=== PATIENT | female | born 1970 | race Caucasian/White ===

== ENCOUNTER 2018-03-05 06:59 | Emergency (ER) | payer BC ==
--- OUTSIDE RECORDS SUMMARY | 2018-03-05 07:00 | XMS REPORT | Clinical Summary ---
:1970 Author Organization [facility] Address [address] [place] [address] Care Team Providers Name Role Phone Asked, No Pcp Primary Care Provider Unavailable Allergies Active Allergy Reactions Severity Noted Date Comments Azithromycin 09/11/2016 Cephalexin Rash Low 09/22/2015 Furosemide Rash Low 09/22/2015 Tramadol Other (See Comments) High 09/11/2016 Medications Medication Sig Dispensed Refills Start Date End Date Status aspirin (ASPIR-81) 81 Take 81 mg by 0 Active MG enteric coated mouth daily. tablet atorvastatin (LIPITOR) Take 80 mg by 0 Active 80 MG tablet mouth daily. gabapentin (NEURONTIN) Take 300 mg by 0 Active 300 mg capsule mouth 3 (three) times a day. losartan (COZAAR) 100 Take 100 mg by 0 Active MG tablet mouth daily. montelukast (SINGULAIR) Take 10 mg by 0 Active 10 mg tablet mouth nightly. esomeprazole (NexIUM) Take 20 mg by 0 Active 20 MG capsule mouth daily before breakfast. primidone (MYSOLINE) 50 Take 50 mg by 0 Active MG tablet mouth 4 (four) times a day. propranolol (INDERAL) Take 60 mg by 0 Active 60 MG tablet mouth 3 (three) times a day. sertraline (ZOLOFT) 100 Take 100 mg by 0 Active MG tablet mouth daily. zolpidem (AMBIEN) 10 mg Take 10 mg by 0 Active tablet mouth nightly as needed for sleep. cetirizine (ZyrTEC) 10 Take 10 mg by 0 Active MG tablet mouth daily. Active Problems Problem Noted Date Bilateral thumb pain 09/11/2016 Right carpal tunnel syndrome 09/11/2016 Left carpal tunnel syndrome 09/11/2016 Trigger finger of right thumb 09/11/2016 Trigger finger of left thumb 09/11/2016 Family History Medical History Relation Name Comments No Known Problems Other Relation Name Status Comments Other Social History Tobacco Use Types Packs/Day Years Used Date Smoker, Current Status Unknown Sex Assigned at Date Recorded Not on file Job Start Date Occupation Industry Not on file Not on file Not on file Travel History Travel Start Travel End No recent travel history available. Last Filed Vital Signs Not on file Plan of Treatment Health Maintenance Due Date Last Done Comments MMR VACCINES (1 of 1 - Standard 01/14/1972 series) VARICELLA VACCINES (1 of 2 - 2-dose 01/14/1984 adolescent series) CERVICAL CANCER SCREENING 01/14/1992 INFLUENZA VACCINE 11/06/2017 HEPATITIS B VACCINES Aged Out No longer eligible based on patient's age to complete this topic IPV VACCINES Aged Out No longer eligible based on patient's age to complete this topic MENINGOCOCCAL VACCINE Aged Out No longer eligible based on patient's age to complete this topic Results Not on fileafter 03/04/2017 Insurance Payer Benefit Plan / Group Subscriber ID Type Phone Address AETNA AETNA HMO,POS,EPO, MC/EC xxxxxxxxxx HMO [id number] (Home) [place], [place] [id number] (Work) Advance Directives Patient has advance care planning documents on file. For more information, please contact:[place] [address]
--- NOTE | 2018-03-05 08:34 | ER ---
Nurse's Notes [facility] Name: Niesha Lyon Age: 48 yrs Sex: Female : 1970 Arrival Date: 03/05/2018 Time: 06:59 Bed 14 Private MD: Diagnosis: Dermatitis, unspecified;Zoster [herpes zoster] Presentation: 03/05 07:15 Presenting complaint: Patient states: C/O right eye rash/pain, states "I think it's jl7 shingles.". Transition of care: patient was not received from another setting of care. Onset of symptoms was March 04, 2018. Risk Assessment: Do you want to hurt yourself or someone else? Patient reports no desire to harm self or others. Initial Sepsis Screen: Does the patient meet any 2 criteria? No. Patient's initial sepsis screen is negative. Does the patient have a suspected source of infection? No. Patient's initial sepsis screen is negative. Care prior to arrival: None. 07:15 Method Of Arrival: Ambulatory [facility] 07:15 Acuity: CHRISTIAN 4 jl7 Triage Assessment: 07:18 General: Appears in no apparent distress. uncomfortable, Behavior is cooperative, jl7 anxious. Pain: Complains of pain in right eye Pain currently is 9 out of 10 on a pain scale. EENT: No signs and/or symptoms were reported regarding the EENT system. Neuro: Level of Consciousness is awake, alert, obeys commands, Oriented to person, place, time, situation. Cardiovascular: Patient's skin is warm and dry. Respiratory: Airway is patent Respiratory effort is even, unlabored, Respiratory pattern is regular, symmetrical. Derm: Skin is pink, warm \\T\\ dry. 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 - Social history:: Smoking status: Patient/guardian denies using tobacco. - Ebola Screening: : No symptoms or risks identified at this time. - Family history:: not pertinent. Screenin:20 Abuse screen: Denies threats or abuse. Denies injuries from another. Nutritional jl7 screening: No deficits noted. Tuberculosis screening: No symptoms or risk factors identified. Fall Risk None identified. Assessment: 07:20 General: See triage assessment. jl7 08:20 Reassessment: Patient appears in no apparent distress at this time. Patient and/or jl7 family updated on plan of care and expected duration. Pain level reassessed. Patient is alert, oriented x 3, equal unlabored respirations, skin warm/dry/pink. Vital Signs: 07:18 BP 146 / 101; Pulse 80; Resp 18 S; Temp 98.8(O); Pulse Ox 96% on R/A; Weight 90.72 kg jl7 (R); Height 5 ft. 4 in. (162.56 cm) (R); Pain 9/10; 08:20 BP 142 / 91; Pulse 72; Resp 16 S; Pulse Ox 98% on R/A; jl7 07:18 Body Mass Index 34.33 (90.72 kg, 162.56 cm) jl7 ED Course: 06:59 Patient arrived in ED. ds1 07:10 Morro Pan, GAGE is Primary Nurse. jl7 07:15 Carlos Alberto Gaona MD is Attending Physician. angélica 07:16 Triage completed. jl7 07:18 Arm band placed on right wrist. jl7 07:20 Patient has correct armband on for positive identification. Bed in low position. Call jl7 light in reach. Side rails up X 1. Pulse ox on. NIBP on. 08:33 Vaughn Retana MD is Referral Physician. angélica 08:50 No provider procedures requiring assistance completed. Patient did not have IV access jl7 during this emergency room visit. Administered Medications: 08:46 Drug: Bactroban Ointment 2 % 1 application Route: Topical; Site: affected area; jl7 08:48 Follow up: Response: Medication administered at discharge. jl7 08:46 Drug: valACYclovir 1000 mg Route: PO; jl7 08:48 Follow up: Response: Medication administered at discharge. jl7 08:48 Drug: Benadryl 25 mg Route: PO; jl7 08:48 Follow up: Response: Medication administered at discharge. jl7 08:48 Drug: Pepcid 20 mg Route: PO; jl7 08:48 Follow up: Response: Medication administered at discharge. jl7 Outcome: 08:32 Discharge ordered by . angélica 08:50 Discharged to home ambulatory. jl7 08:50 Condition: stable 08:50 Discharge instructions given to patient, Instructed on discharge instructions, follow up and referral plans. medication usage, Demonstrated understanding of instructions, follow-up care, medications, Prescriptions given X 4. 08:51 Patient left the ED. jl7 Signatures: Carlos Alberto Gaona MD MD cha Sanford, Demi ds1 Morro Pan RN RN jl7
--- NOTE | 2018-03-05 08:34 | EDPHYS ---
Physician Documentation [facility] Name: Niesha Lyon Age: 48 yrs Sex: Female : 1970 Arrival Date: 03/05/2018 Time: 06:59 Bed 14 Private MD: ED Physician Carlos Alberto Gaona HPI: 03/05 08:28 This 48 yrs old Female presents to ER via Ambulatory with complaints of Rash, angélica Itching, Fever. 08:28 The patient's rash thought to be caused by Dermatitis. The rash is located on the right angélica cheek, right ear and right restoration and right eye. The rash can be described as erythematous, raised, vesicular. Onset: The symptoms/episode began/occurred 2 day(s) ago. Associated signs and symptoms: Pertinent positives: burning sensation. Severity of symptoms: At their worst the symptoms were mild. Treatment given at home: OTC lotion/cream. The patient has not experienced similar symptoms in the past. 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 - Social history:: Smoking status: Patient/guardian denies using tobacco. - Ebola Screening: : No symptoms or risks identified at this time. - Family history:: not pertinent. ROS: 08:28 Constitutional: Negative for fever, chills, and weight loss, Eyes: Negative for injury, angélica pain, redness, and discharge, ENT: Negative for injury, pain, and discharge, Neck: Negative for injury, pain, and swelling, Cardiovascular: Negative for chest pain, palpitations, and edema, Respiratory: Negative for shortness of breath, cough, wheezing, and pleuritic chest pain, Abdomen/GI: Negative for abdominal pain, nausea, vomiting, diarrhea, and constipation, Back: Negative for injury and pain, : Negative for injury, bleeding, discharge, and swelling, MS/Extremity: Negative for injury and deformity, Neuro: Negative for headache, weakness, numbness, tingling, and seizure, Psych: Negative for depression, anxiety, suicide ideation, homicidal ideation, and hallucinations, Allergy/Immunology: Negative for hives, rash, and allergies, Endocrine: Negative for neck swelling, polydipsia, polyuria, polyphagia, and marked weight changes, Hematologic/Lymphatic: Negative for swollen nodes, abnormal bleeding, and unusual bruising. 08:28 Skin: Positive for rash. Exam: 08:28 Constitutional: This is a well developed, well nourished patient who is awake, alert, angélica and in no acute distress. ENT: Nares patent. No nasal discharge, no septal abnormalities noted. Tympanic membranes are normal and external auditory canals are clear. Oropharynx with no redness, swelling, or masses, exudates, or evidence of obstruction, uvula midline. Mucous membranes moist. Neck: Trachea midline, no thyromegaly or masses palpated, and no cervical lymphadenopathy. Supple, full range of motion without nuchal rigidity, or vertebral point tenderness. No Meningismus. Chest/axilla: Normal chest wall appearance and motion. Nontender with no deformity. No lesions are appreciated. Cardiovascular: Regular rate and rhythm with a normal S1 and S2. No gallops, murmurs, or rubs. Normal PMI, no JVD. No pulse deficits. Respiratory: Lungs have equal breath sounds bilaterally, clear to auscultation and percussion. No rales, rhonchi or wheezes noted. No increased work of breathing, no retractions or nasal flaring. Abdomen/GI: Soft, non-tender, with normal bowel sounds. No distension or tympany. No guarding or rebound. No evidence of tenderness throughout. Back: No spinal tenderness. No costovertebral tenderness. Full range of motion. Female : Normal external genitalia. MS/ Extremity: Pulses equal, no cyanosis. Neurovascular intact. Full, normal range of motion. Neuro: Awake and alert, GCS 15, oriented to person, place, time, and situation. Cranial nerves II-XII grossly intact. Motor strength 5/5 in all extremities. Sensory grossly intact. Cerebellar exam normal. Normal gait. Psych: Awake, alert, with orientation to person, place and time. Behavior, mood, and affect are within normal limits. 08:28 Head/face: Noted is rash, swelling, that is mild, of the right eye, right cheek and right ear. 08:28 Eyes: Periorbital structures: erythema, swelling. 08:28 Skin: induration, that is mild is noted, contact dermatitis, zoster. Vital Signs: 07:18 BP 146 / 101; Pulse 80; Resp 18 S; Temp 98.8(O); Pulse Ox 96% on R/A; Weight 90.72 kg [facility] (R); Height 5 ft. 4 in. (162.56 cm) (R); Pain 9/10; 08:20 BP 142 / 91; Pulse 72; Resp 16 S; Pulse Ox 98% on R/A; jl7 07:18 Body Mass Index 34.33 (90.72 kg, 162.56 cm) [facility] MDM: 07:15 Patient medically screened. [facility] 08:31 Data reviewed: vital signs, nurses notes. [facility] Administered Medications: 08:46 Drug: Bactroban Ointment 2 % 1 application Route: Topical; Site: affected area; [facility] 08:48 Follow up: Response: Medication administered at discharge. [facility] 08:46 Drug: valACYclovir 1000 mg Route: PO; [facility] 08:48 Follow up: Response: Medication administered at discharge. [facility] 08:48 Drug: Benadryl 25 mg Route: PO; [facility] 08:48 Follow up: Response: Medication administered at discharge. [facility] 08:48 Drug: Pepcid 20 mg Route: PO; [facility] 08:48 Follow up: Response: Medication administered at discharge. [facility] Disposition: 18 08:32 Discharged to Home. Impression: Dermatitis, unspecified, Zoster [herpes zoster]. - Condition is Stable. - Discharge Instructions: Contact Dermatitis, Rash, Shingles, Shingles, [id number]-le-[id number], Rash, [id number], Contact Dermatitis, Myod-um-Dnix. - Prescriptions for Bactroban 2 % Topical Ointment - Apply to affected area 1 application by TOPICAL route every 12 hours; 30 gram. Benadryl 25 mg Oral Capsule - take 1 capsule by ORAL route every 6 hours As needed; 30 tablet. Pepcid 20 mg Oral Tablet - take 1 tablet by ORAL route every 12 hours for 10 days; 20 tablet. Tylenol- Codeine #3 300-30 mg Oral Tablet - take 2 tablets by ORAL route every 6 hours As needed; 20 tablet. Valtrex 1 g Oral Tablet - take 1 tablet by ORAL route every 8 hours for 7 days; 21 tablet. - Medication Reconciliation Form, Thank You Letter, Antibiotic Education, Prescription Opioid Use form. - Follow up: Private Physician; When: 2 - 3 days; Reason: Recheck today's complaints, Continuance of care, Re-evaluation by your physician. Follow up: Vaughn Retana MD; When: 1 - 2 days; Reason: Recheck today's complaints, Re-evaluation by your physician. - Problem is new. - Symptoms have improved. Signatures: Carlos Alberto Gaona MD MD cha Leal, Jahala, RN RN jl7 Corrections: (The following items were deleted from the chart) 08:33 08:32 03/05/2018 08:32 Discharged to Home. Impression: Dermatitis, unspecified; Zoster angélica [herpes zoster]. Condition is Stable. Forms are Medication Reconciliation Form, Thank You Letter, Antibiotic Education, Prescription Opioid Use. Follow up: Private Physician; When: 2 - 3 days; Reason: Recheck today's complaints, Continuance of care, Re-evaluation by your physician. Problem is new. Symptoms have improved. [facility] 08:51 08:33 03/05/2018 08:32 Discharged to Home. Impression: Dermatitis, unspecified; Zoster jl7 [herpes zoster]. Condition is Stable. Forms are Medication Reconciliation Form, Thank You Letter, Antibiotic Education, Prescription Opioid Use. Follow up: Private Physician; When: 2 - 3 days; Reason: Recheck today's complaints, Continuance of care, Re-evaluation by your physician. Follow up: Vaughn Retana; When: 1 - 2 days; Reason: Recheck today's complaints, Re-evaluation by your physician. Problem is new. Symptoms have improved. angélica
[2018-03-05] MEDS ORDERED: VALACYCLOVIR 500 MG TAB ONE (08:49)
[2018-03-05] MEDS ORDERED: MUPIROCIN 2% OINT 22GM TUBE TOP ONE (08:49)
[2018-03-05] MEDS ORDERED: FAMOTIDINE 20 MG TAB ONE (08:49)
[2018-03-05] MEDS ORDERED: DIPHENHYDRAMINE 25 MG TAB/CAP ONE (08:49)
[2018-03-05 13:49] VITALS: TEMP 98.8
[2018-03-05 13:50] VITALS: BP 142/91; O2SAT 98
== END 2018-03-05 08:51 | disposition home or self-care (01) ==
LOC: ER 06:59
DX: L30.9 Dermatitis, unspecified (principal); B02.9 Zoster without complications; I10 Essential (primary) hypertension; Z88.1 Allergy status to other antibiotic agents; Z88.3 Allergy status to other anti-infective agents; Z88.8 Allergy status to other drugs, medicaments and biological substances; Z91.040 Latex allergy status
CPT/HCPCS: 99283

== ENCOUNTER 2019-11-28 16:14 | Emergency (ER) | payer BC, SELFPAY ==
--- NOTE | 2019-11-28 16:43 | ER ---
Nurse's Notes [facility] Name: Niesha Lyon Age: 49 yrs Sex: Female : 1970 Arrival Date: 11/28/2019 Time: 16:15 Bed 14 Private MD: Diagnosis: Dermatitis, unspecified Presentation: 11/27 16:17 Chief complaint: Patient states: "I am having facial swelling. I started taking a new jd3 medication for my bleeding stomach ulcers and I think I am allergic to it.". Coronavirus screen: At this time, the client does not indicate any symptoms associated with coronavirus-19. Ebola Screen: Patient negative for fever greater than or equal to 101.5 degrees Fahrenheit, and additional compatible Ebola Virus Disease symptoms. Onset: The symptoms/episode began/occurred acutely. Anaphylaxis evaluation, angioedema. Initial Sepsis Screen: Does the patient meet any 2 criteria? No. Patient's initial sepsis screen is negative. Does the patient have a suspected source of infection? No. Patient's initial sepsis screen is negative. Risk Assessment: Do you want to hurt yourself or someone else? Patient reports no desire to harm self or others. Note Benadryl last taken 929. Onset of symptoms was November 27, 2019. 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 - Social history:: Smoking status: Patient denies any tobacco usage or history of. Assessment: 17:18 Reassessment: Patient is alert, oriented x 3, equal unlabored respirations, skin aa5 warm/dry/pink. Vital Signs: 16:20 BP 153 / 77; Pulse 81; Resp 21 S; Temp 99.3(O); Pulse Ox 98% on R/A; Weight 108.86 kg jd3 (R); Height 5 ft. 3 in. (160.02 cm) (R); Pain 8/10; 16:20 Body Mass Index 42.51 (108.86 kg, 160.02 cm) jd3 ED Course: 16:15 Patient arrived in ED. as 16:20 Triage completed. jd3 16:20 Arm band placed on. j 16:26 Carlos Alberto Gaona MD is Attending Physician. angélica 16:26 Joaquín Mcdermott PA [facility]. [facility] 16:26 Carlos Alberto Gaona MD is Attending Physician. [facility] Administered Medications: 16:45 Drug: Dexamethasone 10 mg Route: IM; Site: right deltoid; aa5 17:18 Follow up: Response: No adverse reaction aa5 16:45 Drug: Pepcid 20 mg Route: PO; aa5 17:18 Follow up: Response: No adverse reaction aa5 16:45 Drug: diphenhydrAMINE 50 mg Route: PO; aa5 17:18 Follow up: Response: No adverse reaction aa5 Outcome: 16:42 Discharge ordered by . mick 17:18 Discharged to home ambulatory. aa5 17:18 Condition: stable 17:18 Discharge instructions given to patient, Instructed on discharge instructions, follow up and referral plans. medication usage, Demonstrated understanding of instructions, follow-up care, medications, Prescriptions given X 2. 17:20 Patient left the ED. aa5 Signatures: Carlos Alberto Gaona MD MD cha Mickail, Joel, PA PA jmm Martinez, Amelia as Calderon, Audri RN RN aa5 Pradeep Carney RN RN j
--- NOTE | 2019-11-28 16:43 | EDPHYS ---
Physician Documentation [facility] Name: Niesha Lyon Age: 49 yrs Sex: Female : 1970 Arrival Date: 11/28/2019 Time: 16:15 Bed 14 Private MD: ED Physician Carlos Alberto Gaona HPI: 11/27 16:39 This 49 yrs old Female presents to ER via Ambulatory with complaints of jmm Allergic Reaction. 16:39 The patient presents with itching, localized swelling, rash. Onset: The jmm symptoms/episode began/occurred gradually, today. Associated signs and symptoms: Pertinent negatives: hives. Possible causes: The patient has experienced similar episodes in the past. This is a 49 year old female with a history of atrial fibrillation, htn, VT, HLP that presents to the ED with complaints of irritation around both eyes and right check. Patient denies fever, vomiting, shortness of breath. . 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 - Social history:: Smoking status: Patient denies any tobacco usage or history of. ROS: 16:39 Constitutional: Negative for fever, chills, and weight loss, Cardiovascular: Negative jmm for chest pain, palpitations, and edema, Respiratory: Negative for shortness of breath, cough, wheezing, and pleuritic chest pain. 16:39 Skin: Positive for erythema. 16:39 All other systems are negative. Exam: 16:39 Constitutional: This is a well developed, well nourished patient who is awake, alert, jmm and in no acute distress. 16:39 Eyes: EOMI, no conjunctival erythema appreciated ENT: Moist Mucus Membranes Neck: Trachea midline, Supple Chest/axilla: Normal chest wall appearance and motion. Cardiovascular: Regular rate and rhythm. No edema appreciated Respiratory: Normal respirations, no respiratory distress appreciated Abdomen/GI: Non distended, soft Back: Normal ROM Skin: General appearance color normal MS/ Extremity: Moves all extremities, no obvious deformities appreciated, no edema noted to the lower extremities Neuro: Awake and alert, normal gait Psych: Behavior is normal, Mood is normal, Patient is cooperative and pleasant 16:39 Head/face: mild erythema surrounding both eyes, mild erythema noted to the right cheek. Vital Signs: 16:20 BP 153 / 77; Pulse 81; Resp 21 S; Temp 99.3(O); Pulse Ox 98% on R/A; Weight 108.86 kg jd3 (R); Height 5 ft. 3 in. (160.02 cm) (R); Pain 8/10; 16:20 Body Mass Index 42.51 (108.86 kg, 160.02 cm) jd3 MDM: 16:26 Patient medically screened. [facility] 16:41 Data reviewed: vital signs, nurses notes. Counseling: I had a detailed discussion with mick the patient and/or guardian regarding: the historical points, exam findings, and any diagnostic results supporting the discharge/admit diagnosis, the need for outpatient follow up, to return to the emergency department if symptoms worsen or persist or if there are any questions or concerns that arise at home. ED course: Patient advised to discontinue new medications and follow up with GI/PCP for further evaluation. Patient is otherwise given strict return precautions. Patient is normotensive, no pharyngeal edema appreciated. . Administered Medications: 16:45 Drug: Dexamethasone 10 mg Route: IM; Site: right deltoid; aa5 17:18 Follow up: Response: No adverse reaction aa5 16:45 Drug: Pepcid 20 mg Route: PO; aa5 17:18 Follow up: Response: No adverse reaction aa5 16:45 Drug: diphenhydrAMINE 50 mg Route: PO; aa5 17:18 Follow up: Response: No adverse reaction aa5 Disposition: 11/28 08:56 Co-signature as Attending Physician, Carlos Alberto Gaona MD I agree with the assessment and [facility] plan of care. Disposition: 11/28/19 16:42 Discharged to Home. Impression: Dermatitis, unspecified. - Condition is Stable. - Discharge Instructions: Rash. - Prescriptions for Hydroxyzine HCl 25 mg Oral Tablet - take 1 tablet by ORAL route every 6 hours As needed; 30 tablet. Pepcid 20 mg Oral Tablet - take 1 tablet by ORAL route every 12 hours for 10 days; 20 tablet. - Medication Reconciliation Form, Thank You Letter, Antibiotic Education, Prescription Opioid Use form. - Follow up: Private Physician; When: 2 - 3 days; Reason: Recheck today's complaints, Continuance of care, Re-evaluation by your physician. Signatures: Carlos Alberto Gaona MD MD cha Mickail, Joel, PA PA jmm Calderon, Audri, RN RN aa5 Pradeep Carney RN RN jd3 Corrections: (The following items were deleted from the chart) 11/27 17:20 16:42 11/28/2019 16:42 Discharged to Home. Impression: Dermatitis, unspecified. aa5 Condition is Stable. Forms are Medication Reconciliation Form, Thank You Letter, Antibiotic Education, Prescription Opioid Use. Follow up: Private Physician; When: 2 - 3 days; Reason: Recheck today's complaints, Continuance of care, Re-evaluation by your physician. mick
[2019-11-28] MEDS ORDERED: DIPHENHYDRAMINE 25 MG TAB/CAP ONE (16:51)
[2019-11-28] MEDS ORDERED: dexAMETHasone 10 MG/ML VIAL ONE (16:51)
[2019-11-28] MEDS ORDERED: FAMOTIDINE 20 MG TAB ONE (16:52)
== END 2019-11-28 17:20 | disposition home or self-care (01) ==
LOC: ER 16:14
DX: L30.9 Dermatitis, unspecified (principal); Z88.1 Allergy status to other antibiotic agents; Z91.040 Latex allergy status
CPT/HCPCS: 96372; 99283; J1100

== ENCOUNTER 2019-12-04 19:41 | Emergency (ER) | payer SELFPAY ==
--- OUTSIDE RECORDS SUMMARY | 2019-12-04 19:44 | XMS REPORT | Clinical Summary ---
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
--- NOTE | 2019-12-04 21:07 | RAD REPORT ---
EXAM DESCRIPTION: RAD - Chest Single View - 12/04/2019 8:55 pm CLINICAL HISTORY: CHEST PAIN Chest pain. COMPARISON: Chest Pa And Lat (2 Views) dated 06/12/2018; Chest Pa And Lat (2 Views) dated 03/05/2017; Chest Single View dated 09/24/2016; Abdomen Acute Series dated 09/22/2016 FINDINGS: Portable technique limits examination quality. The lungs are grossly clear. The heart is upper limit of normal in size. No displaced fractures. IMPRESSION: No acute intrathoracic process suspected.
[2019-12-04] MEDS ORDERED: DIPHENHYDRAMINE 50 MG/ML VIAL ONE (21:17)
[2019-12-04] MEDS ORDERED: METHYLPREDNISOLONE 125 MG INJ ONE (21:17)
[2019-12-04] MEDS ORDERED: NA CHLORIDE 0.9% 1,000 ML ONE (21:17)
[2019-12-04] MEDS ORDERED: FAMOTIDINE 20 MG/2 ML VIAL IV ONE (21:17)
[2019-12-04 21:32] LABS: Basophils % 1.3 % (0-1.3); Lymphocytes % 26.7 % (15.3-44.8); MPV 8.4 fL (7.6-11.3); RBC Red Blood Cell Count 4.53 M/uL (3.86-4.86)
[2019-12-04 21:51] LABS: BUN Blood Urea Nitrogen 25 mg/dL (7-18); Bicarbonate 29 mmol/L (21-32); Glucose Level 96 mg/dL (74-106); Sodium Level 139 mmol/L (136-145); Troponin (Emerg Dept Use Only) < 0.02 ng/mL (0.0-0.045)
[2019-12-04 21:52] LABS: Potassium 4.3 mmol/L (3.5-5.1)
--- NOTE | 2019-12-04 22:02 | EDPHYS ---
Physician Documentation [facility] Name: Niesha Lyon Age: 49 yrs Sex: Female : 1970 Arrival Date: 12/04/2019 Time: 19:47 Bed 16 Private MD: ED Physician Carlos Alberto Gaona HPI: 12/03 21:56 This 49 yrs old Female presents to ER via Ambulatory with complaints of kb Allergic Reaction, Rash, Rash around Eyes and mouth. 21:56 The patient presents with itching, rash, redness of skin. Onset: The symptoms/episode kb began/occurred 1 week(s) ago. Associated signs and symptoms: Pertinent positives: chest pain, rash, Pertinent negatives: abdominal pain, Altered mental status dysphagia, fever, headache, hives, Light headed nausea, shortness of breath, swelling, Syncope vomiting. Possible causes: antibiotics, penicillin. At home the patient or guardian has treated the symptoms with pepcid. Severity of symptoms: At their worst the symptoms were moderate in the emergency department the symptoms are unchanged. The patient has not experienced similar symptoms in the past. The patient has been recently seen at the [facility], last week, for similar complaints. Pt reports she started having an amoxicillin rash a week ago, came here on Saturday and was given a steroid shot and pepcid. States she rash has persisted.. 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 LMP N/A - Post-menopause bb Historical: - Allergies: 20:23 Amoxicillin; bb 20:23 Azithromycin; bb 20:23 Cephalexin Monohydrate; bb 20:23 Keflex; bb 20:23 Latex, Natural Rubber; bb - Home Meds: 20:23 losartan-hydrochlorothiazide Oral [Active]; propranolol 60 mg Oral tab 1 tab 2 times bb per day [Active]; gabapentin oral oral [Active]; zolpidem 10 mg Oral tab 1 tab once daily [Active]; Hydroxyzine Oral [Active]; Pepcid Oral [Active]; - PMHx: 20:23 Anxiety; Atrial Fib; Depression; High Cholesterol; Hypertension; Myocardial infarction; bb - PSHx: 20:23 Heart stents; Tonsillectomy; Bowel resection; bb - Immunization history:: Adult Immunizations up to date. - Social history:: Smoking status: Patient denies any tobacco usage or history of. Patient/guardian denies using alcohol, street drugs. ROS: 21:54 Constitutional: Negative for fever, chills, and weight loss, ENT: Negative for injury, kb pain, and discharge, Neck: Negative for injury, pain, and swelling, Respiratory: Negative for shortness of breath, cough, wheezing, and pleuritic chest pain, Abdomen/GI: Negative for abdominal pain, nausea, vomiting, diarrhea, and constipation, Back: Negative for injury and pain, : Negative for injury, bleeding, discharge, and swelling, MS/Extremity: Negative for injury and deformity, Neuro: Negative for headache, weakness, numbness, tingling, and seizure. 21:54 Cardiovascular: Positive for chest pain, Negative for edema, orthopnea, palpitations, paroxysmal nocturnal dyspnea. 21:54 Skin: Positive for rash, of the face, left iliac crest, left hip and neck. Exam: 21:54 Constitutional: This is a well developed, well nourished patient who is awake, alert, kb and in no acute distress. Head/Face: Normocephalic, atraumatic. Chest/axilla: Normal chest wall appearance and motion. Nontender with no deformity. No lesions are appreciated. Cardiovascular: Regular rate and rhythm with a normal S1 and S2. No gallops, murmurs, or rubs. Normal PMI, no JVD. No pulse deficits. Respiratory: Lungs have equal breath sounds bilaterally, clear to auscultation and percussion. No rales, rhonchi or wheezes noted. No increased work of breathing, no retractions or nasal flaring. Abdomen/GI: Soft, non-tender, with normal bowel sounds. No distension or tympany. No guarding or rebound. No evidence of tenderness throughout. MS/ Extremity: Pulses equal, no cyanosis. Neurovascular intact. Full, normal range of motion. Neuro: Awake and alert, GCS 15, oriented to person, place, time, and situation. Cranial nerves II-XII grossly intact. Motor strength 5/5 in all extremities. Sensory grossly intact. Cerebellar exam normal. Normal gait. 21:54 Skin: rash can be described as macular, papular, on the neck and left hip and left iliac crest and face. 22:00 ECG was reviewed by the Attending Physician. Vital Signs: 20:16 BP 130 / 96; Pulse 74; Resp 18 S; Temp 98.3(O); Pulse Ox 99% on R/A; Weight 108.86 kg bb (R); Height 5 ft. 3 in. (160.02 cm) (R); Pain 9/10; 21:30 BP 168 / 93; Pulse 97; Resp 16; Pulse Ox 97% on R/A; jb4 21:45 BP 102 / 77; Pulse 72; Resp 16; Pulse Ox 96% on R/A; jb4 20:16 Body Mass Index 42.51 (108.86 kg, 160.02 cm) bb MDM: 20:06 Patient medically screened. kb 21:54 Data reviewed: vital signs, nurses notes. Data interpreted: Pulse oximetry: on room air kb is 99 %. Interpretation: normal. Counseling: I had a detailed discussion with the patient and/or guardian regarding: the historical points, exam findings, and any diagnostic results supporting the discharge/admit diagnosis, lab results, radiology results, the need for outpatient follow up, a family practitioner, to return to the emergency department if symptoms worsen or persist or if there are any questions or concerns that arise at home. 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 22:00 Response to treatment: the patient's symptoms have mildly improved after treatment. kb 12/03 20:46 Order name: CBC with Diff; Complete Time: 21:43 kb 12/03 20:46 Order name: Basic Metabolic Panel; Complete Time: 21:54 kb 12/03 20:46 Order name: Troponin (emerg Dept Use Only); Complete Time: 21:54 kb 12/03 20:46 Order name: Chest Single View XRAY; Complete Time: 21:10 kb 12/03 20:46 Order name: IV Start; Complete Time: 21:45 kb 12/03 20:46 Order name: EKG; Complete Time: 20:47 kb 12/03 20:46 Order name: EKG - Nurse/Tech; Complete Time: 21:45 kb EC:00 Rate is 69 beats/min. Rhythm is regular. QRS [place] is Normal. [place] interval is normal at kb 166 msec. QRS interval is normal at 86 msec. QT interval is normal at 404 msec. Administered Medications: 21:15 Drug: NS 0.9% 1000 ml Route: IV; Rate: 1000 ml; Site: left antecubital; jb4 22:00 Follow up: Response: No adverse reaction; IV Status: Order to discontinue infusion; IV jb4 Intake: 200ml ; PT refused remaining IV fluids. 21:17 Drug: SOLU-Medrol 125 mg Route: IVP; Site: left antecubital; jb4 22:00 Follow up: Response: No adverse reaction jb4 21:18 Drug: Pepcid 20 mg Route: IVP; Site: left antecubital; jb4 22:00 Follow up: Response: No adverse reaction jb4 21:20 Drug: Benadryl 12.5 mg Route: IVP; Site: left antecubital; jb4 22:00 Follow up: Response: No adverse reaction; Marked relief of symptoms jb4 Disposition: 12/04/19 22:00 Discharged to Home. Impression: Rash and other nonspecific skin eruption. - Condition is Stable. - Discharge Instructions: Rash, Rlqt-ob-Teub, Allergies, Caro-ay-Dxyz. - Prescriptions for Prednisone 20 mg Oral Tablet - take 1 tablet by ORAL route once daily for 5 days; 5 tablet. - Medication Reconciliation Form, Thank You Letter, Antibiotic Education, Prescription Opioid Use form. - Follow up: Emergency Department; When: As needed; Reason: Worsening of condition. Follow up: Private Physician; When: 2 - 3 days; Reason: Recheck today's complaints, Continuance of care, Re-evaluation by your physician. Addendum: 12/06/2019 08:47 Co-signature as Attending Physician, Carlos Alberto Gaona MD I agree with the assessment and c ramirez plan of care. Signatures: Dispatcher [employer] MIGUEL AAL Blaire Lyon, MATTRESS MAKER-C MATTRESS MAKER-Carlos Alberto Multani MD MD cha Ballard, Brenda, RN RN Juan Chawla, GAGE RN jb4 Corrections: (The following items were deleted from the chart) 12/03 22:20 22:00 12/04/2019 22:00 Discharged to Home. Impression: Rash and other nonspecific skin jb4 eruption. Condition is Stable. Forms are Medication Reconciliation Form, Thank You Letter, Antibiotic Education, Prescription Opioid Use. Follow up: Emergency Department; When: As needed; Reason: Worsening of condition. Follow up: Private Physician; When: 2 - 3 days; Reason: Recheck today's complaints, Continuance of care, Re-evaluation by your physician. kb
--- NOTE | 2019-12-04 22:02 | ER ---
Nurse's Notes [facility] Name: Niesha Lyon Age: 49 yrs Sex: Female : 1970 Arrival Date: 12/04/2019 Time: 19:47 Bed 16 Private MD: Diagnosis: Rash and other nonspecific skin eruption Presentation: 12/03 20:16 Chief complaint: Patient states: she was seen here on Saturday for an allergic reaction bb to Amoxicillin but symptoms are getting worse the rash seems to be spreading and she is having chest pain. Coronavirus screen: At this time, the client does not indicate any symptoms associated with coronavirus-19. Ebola Screen: No symptoms or risks identified at this time. Onset: The symptoms/episode began/occurred 1 week(s) ago. Anaphylaxis evaluation, no signs or symptoms of anaphylaxis were noted. Initial Sepsis Screen: Does the patient meet any 2 criteria? No. Patient's initial sepsis screen is negative. Does the patient have a suspected source of infection? No. Patient's initial sepsis screen is negative. Risk Assessment: Do you want to hurt yourself or someone else? Patient reports no desire to harm self or others. Onset of symptoms was December 04, 2019. 20:16 Method Of Arrival: Ambulatory bb 20:16 Acuity: CHRISTIAN 3 bb Triage Assessment: 20:23 General: Appears uncomfortable, Behavior is anxious. Pain: Complains of pain in face bb and chest Pain currently is 9 out of 10 on a pain scale. Respiratory: Airway is patent Respiratory effort is even, unlabored, Respiratory pattern is regular, Breath sounds are clear bilaterally. 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 - Post-menopause bb Historical: - Allergies: 20:23 Amoxicillin; bb 20:23 Azithromycin; bb 20:23 Cephalexin Monohydrate; bb 20:23 Keflex; bb 20:23 Latex, Natural Rubber; bb - Home Meds: 20:23 losartan-hydrochlorothiazide Oral [Active]; propranolol 60 mg Oral tab 1 tab 2 times bb per day [Active]; gabapentin oral oral [Active]; zolpidem 10 mg Oral tab 1 tab once daily [Active]; Hydroxyzine Oral [Active]; Pepcid Oral [Active]; - PMHx: 20:23 Anxiety; Atrial Fib; Depression; High Cholesterol; Hypertension; Myocardial infarction; bb - PSHx: 20:23 Heart stents; Tonsillectomy; Bowel resection; bb - Immunization history:: Adult Immunizations up to date. - Social history:: Smoking status: Patient denies any tobacco usage or history of. Patient/guardian denies using alcohol, street drugs. Screenin:20 Abuse screen: Denies threats or abuse. Nutritional screening: No deficits noted. jb4 Tuberculosis screening: No symptoms or risk factors identified. Fall Risk None identified. Assessment: 20:20 General: Appears in no apparent distress. uncomfortable, Behavior is calm, cooperative, jb4 appropriate for age. Pain: Complains of pain in headache Pain does not radiate. Pain currently is 9 out of 10 on a pain scale. Quality of pain is described as throbbing, pulsating, Is continuous. Neuro: Level of Consciousness is awake, alert, obeys commands, Oriented to person, place, time, situation. Cardiovascular: Patient's skin is warm and dry. Respiratory: Airway is patent Respiratory effort is even, unlabored, Respiratory pattern is regular, symmetrical, No angio edema noted, pt denies SOB and dyspnea. GI: No signs and/or symptoms were reported involving the gastrointestinal system. : No signs and/or symptoms were reported regarding the genitourinary system. EENT: No signs and/or symptoms were reported regarding the EENT system. Derm: Skin is intact, Skin is pink, warm \T\ dry. Rash noted that is itchy, red, raised, urticaria. Musculoskeletal: Circulation, motion, and sensation intact. Range of motion: intact in all extremities. 21:30 Reassessment: Patient and/or family updated on plan of care and expected duration. Pain jb4 level reassessed. Patient is alert, oriented x 3, equal unlabored respirations, skin warm/dry/pink. PT is in no apparent distress. reports that the itching is still present but is feeling better. Patient states feeling better. 22:20 Reassessment: Patient and/or family updated on plan of care and expected duration. Pain jb4 level reassessed. Patient is alert, oriented x 3, equal unlabored respirations, skin warm/dry/pink. PT verbalized understanding of D/c and follow up instructions. Denies questions or concerns. PT ambulated out of ED with steady gait. Vital Signs: 20:16 BP 130 / 96; Pulse 74; Resp 18 S; Temp 98.3(O); Pulse Ox 99% on R/A; Weight 108.86 kg bb (R); Height 5 ft. 3 in. (160.02 cm) (R); Pain 9/10; 21:30 BP 168 / 93; Pulse 97; Resp 16; Pulse Ox 97% on R/A; jb4 21:45 BP 102 / 77; Pulse 72; Resp 16; Pulse Ox 96% on R/A; jb4 20:16 Body Mass Index 42.51 (108.86 kg, 160.02 cm) bb ED Course: 19:47 Patient arrived in ED. cf2 20:06 Blaire Lyon FNP-C is PHCP. kb 20:06 Carlos Alberto Gaona MD is Attending Physician. kb 20:20 Triage completed. bb 20:20 Patient has correct armband on for positive identification. Bed in low position. Call jb4 light in reach. Side rails up X 1. Pulse ox on. NIBP on. 20:23 Arm band placed on Patient placed in an exam room, on a stretcher, on pulse oximetry. bb 20:35 Juan Bee, RN is Primary Nurse. jb4 20:55 Chest Single View XRAY In Process Unspecified. EDMS 21:15 Initial lab(s) drawn, by me, sent to lab. Inserted saline lock: 18 gauge in left jb4 antecubital area, using aseptic technique. Blood collected. 22:20 No provider procedures requiring assistance completed. IV discontinued, intact, jb4 bleeding controlled, No redness/swelling at site. Pressure dressing applied. Administered Medications: 21:15 Drug: NS 0.9% 1000 ml Route: IV; Rate: 1000 ml; Site: left antecubital; jb4 22:00 Follow up: Response: No adverse reaction; IV Status: Order to discontinue infusion; IV jb4 Intake: 200ml ; PT refused remaining IV fluids. 21:17 Drug: SOLU-Medrol 125 mg Route: IVP; Site: left antecubital; jb4 22:00 Follow up: Response: No adverse reaction jb4 21:18 Drug: Pepcid 20 mg Route: IVP; Site: left antecubital; jb4 22:00 Follow up: Response: No adverse reaction jb4 21:20 Drug: Benadryl 12.5 mg Route: IVP; Site: left antecubital; jb4 22:00 Follow up: Response: No adverse reaction; Marked relief of symptoms jb4 Intake: 22:00 IV: 200ml; Total: 200ml. jb4 Outcome: 22:00 Discharge ordered by . lorrie 22:20 Patient left the ED. jb4 22:20 Discharged to home ambulatory. jb4 22:20 Condition: stable 22:20 Discharge instructions given to patient, Instructed on discharge instructions, follow up and referral plans. medication usage, Demonstrated understanding of instructions, follow-up care, medications, Prescriptions given X 1. Signatures: Dispatcher [employer] EDNE Blaire Lyon, TILE AND MOTTLE SUPERVISOR-C TILE AND MOTTLE SUPERVISOR-Obdulia Guzman RN RN Juan Chawla RN RN jb4 Kota Rayo cf2
--- NOTE | 2019-12-05 05:46 | EKG ---
Test Date: 2019-12-04 Test Time: 20:23:03 Joy Loader: ARLEN MEASUREMENT RESULTS: Intervals: Rate: 69 AK: 166 QRSD: 86 QT: 404 QTc: 432 [place]: P: 57 AK: 166 QRS: 48 T: 57 INTERPRETIVE STATEMENTS: Normal sinus rhythm Normal ECG Compared to ECG 09/21/2016 08:55:03 Sinus bradycardia no longer present Myocardial infarct finding no longer present Electronically Signed On 12-05-19 05:45:09 CDT by Bam Urena
[2019-12-08 16:21] VITALS: TEMP 98.3
[2019-12-08 16:23] VITALS: BP 168/93; O2SAT 97
== END 2019-12-04 22:20 | disposition home or self-care (01) ==
LOC: ER 19:41
DX: R21 Rash and other nonspecific skin eruption (principal); I10 Essential (primary) hypertension; E78.00 Pure hypercholesterolemia, unspecified; I48.91 Unspecified atrial fibrillation; F41.9 Anxiety disorder, unspecified; F32.9 Major depressive disorder, single episode, unspecified; Z95.818 Presence of other cardiac implants and grafts; Z88.1 Allergy status to other antibiotic agents; Z88.8 Allergy status to other drugs, medicaments and biological substances; Z91.040 Latex allergy status; Z91.048 Other nonmedicinal substance allergy status
CPT/HCPCS: 36415; 71045; 80048; 84484; 85025; 93005; 96361; 96374; 96375; 99284; J1200; J2930; J7030

== ENCOUNTER 2020-06-07 14:41 | Emergency (ER) | payer SELFPAY ==
--- NOTE | 2020-06-07 15:35 | ER ---
Nurse's Notes [facility] Name: Niesha Lyon Age: 50 yrs Sex: Female : 1970 Arrival Date: 06/07/2020 Time: 14:43 Bed 24 Private MD: Diagnosis: Cutaneous abscess of left hand-paronychia, middle finger Presentation: 06/07 14:46 Chief complaint: Patient states: "I think I am having an infection in my middle finger jd3 on my left hand.". Coronavirus screen: At this time, the client does not indicate any symptoms associated with coronavirus-19. Ebola Screen: Patient negative for fever greater than or equal to 101.5 degrees Fahrenheit, and additional compatible Ebola Virus Disease symptoms. Initial Sepsis Screen: Does the patient meet any 2 criteria? No. Patient's initial sepsis screen is negative. Does the patient have a suspected source of infection? No. Patient's initial sepsis screen is negative. Risk Assessment: Do you want to hurt yourself or someone else? Patient reports no desire to harm self or others. Onset of symptoms was June 02, 2020. 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 - Social history:: Smoking status: Patient/guardian denies using tobacco, the patient reports quitting approximately 4 years ago. Screenin:24 Abuse screen: Denies threats or abuse. Denies injuries from another. Nutritional zb screening: No deficits noted. Tuberculosis screening: No symptoms or risk factors identified. Fall Risk None identified. Assessment: 15:21 General: Appears in no apparent distress. uncomfortable, Behavior is cooperative, zb anxious, Denies fever, feeling ill, fatigue, chills. Pain: Complains of pain in left middle fingernail Pain does not radiate. Pain currently is 9 out of 10 on a pain scale. Pain began 2-3 days ago. Is continuous, Alleviated by nothing. Neuro: Level of Consciousness is awake, alert, obeys commands. Cardiovascular: Patient's skin is warm and dry. Respiratory: Airway is patent Respiratory effort is even, unlabored, Respiratory pattern is regular, symmetrical. GI: Abdomen is round non-distended. : No signs and/or symptoms were reported regarding the genitourinary system. EENT: No signs and/or symptoms were reported regarding the EENT system. Derm: Skin has blisters on left middle finger has skin tears on left middle finger middle finger slight edemous. Reports pain that is 9 out of 10 on a pain scale. Musculoskeletal: Range of motion: intact in all extremities. 15:44 Reassessment: d/c pending IM injection time. zb 16:00 Reassessment: Patient appears in no apparent distress at this time. Patient and/or zb family updated on plan of care and expected duration. Pain level reassessed. Patient is alert, oriented x 3, equal unlabored respirations, skin warm/dry/pink. d/c instruction given. patient gait steady and even. patient up ad enmo. Vital Signs: 14:49 BP 166 / 83; Pulse 78; Resp 16 S; Temp 97.8(TE); Pulse Ox 99% on R/A; Weight 92.99 kg jd3 (R); Height 5 ft. 4 in. (162.56 cm) (R); Pain 9/10; 14:49 Body Mass Index 35.19 (92.99 kg, 162.56 cm) jd3 ED Course: 14:43 Patient arrived in ED. mr 14:47 Triage completed. jd3 14:49 Arm band placed on. jd3 14:50 [facility] Lyon [facility]-C [facility]. kb 14:50 Rohith Austin MD is Attending Physician. kb 15:19 Mary Merrill RN is Primary Nurse. zb 15:24 Patient has correct armband on for positive identification. Bed in low position. Call zb light in reach. Side rails up X 1. Pulse ox on. NIBP on. Door closed. Noise minimized. 15:27 No provider procedures requiring assistance completed. Patient did not have IV access zb during this emergency room visit. Administered Medications: 15:39 Drug: Ketorolac 60 mg Route: IM; Site: left deltoid; zb 16:05 Follow up: Response: No adverse reaction; RASS: Alert and Calm (0) zb 15:40 Drug: Bactrim (160 mg-800 mg (DS) 1 tablet Route: PO; zb 16:05 Follow up: Response: No adverse reaction zb Outcome: 15:34 Discharge ordered by MD. andrew 16:04 Discharged to home ambulatory. zb 16:04 Condition: stable 16:04 Discharge instructions given to patient, Instructed on discharge instructions, follow up and referral plans. medication usage, Demonstrated understanding of instructions, follow-up care, medications, Prescriptions given X 2. 16:06 Patient left the ED. zb Signatures: Blaire Lyon, BUILDING AND GROUNDS SUPERVISOR-C BUILDING AND GROUNDS SUPERVISOR-Ckb Mello Ruby CarneyPradeep RN RN jd3 Brown, Zipporah, RN RN zb Corrections: (The following items were deleted from the chart) 14:50 14:49 Pulse 78bpm; Resp 16bpm; Spontaneous; Pulse Ox 99% RA; Temp 97.8F Temporal; 92.99 jd3 kg Reported; Height 5 ft. 4 in. Reported; BMI: 35.1; Pain 9/10; jd3 15:31 15:28 Condition: stable zb zb 15:31 15:28 Discharged to home ambulatory, zb zb 15:31 15:28 Discharge instructions given to patient, Instructed on discharge instructions, zb follow up and referral plans. Demonstrated understanding of instructions, follow-up care, zb 15:43 15:21 Derm: Skin has blisters on left middle finger has skin tears on left middle zb finger Reports pain that is 9 out of 10 on a pain scale. zb
--- NOTE | 2020-06-07 15:35 | EDPHYS ---
Physician Documentation [facility] Name: Niesha Lyon Age: 50 yrs Sex: Female : 1970 Arrival Date: 06/07/2020 Time: 14:43 Bed 24 Private MD: ED Physician Rohith Austin HPI: 06/07 15:32 This 50 yrs old Female presents to ER via Ambulatory with complaints of kb Infected finger. 15:32 The patient presents with an abscess of the dorsal aspect of distal phalanx of left kb middle finger. Description: erythematous, hot, swollen. Onset: The symptoms/episode began/occurred last week. Possible cause(s): unknown. Associated signs and symptoms: Pertinent positives: drainage, erythema, swelling. Modifying factors: the symptoms are alleviated by nothing, the symptoms are aggravated by pressure, squeezing the lesion and expressing the contents, touching. Severity of symptoms: At their worst the symptoms were moderate, in the emergency department the symptoms are unchanged. The patient has not experienced similar symptoms in the past. The patient has not recently seen a physician. Pt reports she did something to her finger during the freeze because she has had swelling and pain to right middle finger, next to nail. States a blister developed and popped. It has been draining. . FIELD KILN BURNER: 14:49 LMP N/A - ablasion jd3 Historical: - Allergies: 14:48 Amoxicillin; jd3 14:48 Keflex; jd3 14:48 Latex, Natural Rubber; jd3 14:48 Azithromycin; jd3 14:48 Cephalexin Monohydrate; jd3 - PMHx: 14:48 High Cholesterol; Atrial Fib; Depression; Hypertension; Myocardial infarction; Anxiety; jd3 - PSHx: 14:48 Heart stents; Tonsillectomy; Bowel resection; jd3 - Immunization history:: Adult Immunizations up to date, Last tetanus immunization: unknown. - Social history:: Smoking status: Patient/guardian denies using tobacco, the patient reports quitting approximately 4 years ago. ROS: 15:29 Constitutional: Negative for fever, chills, and weight loss, Neuro: Negative for kb headache, weakness, numbness, tingling, and seizure. 15:29 Skin: Positive for abscess, erythema, swelling, of the dorsal aspect of distal phalanx of left middle finger. Exam: 15:29 Constitutional: This is a well developed, well nourished patient who is awake, alert, kb and in no acute distress. Head/Face: Normocephalic, atraumatic. MS/ Extremity: Pulses equal, no cyanosis. Neurovascular intact. Full, normal range of motion. Neuro: Awake and alert, GCS 15, oriented to person, place, time, and situation. Cranial nerves II-XII grossly intact. Motor strength 5/5 in all extremities. Sensory grossly intact. Cerebellar exam normal. Normal gait. 15:29 Skin: abscess, that is small, of the dorsal aspect of distal phalanx of left middle finger, with drainage, that is purulent. Vital Signs: 14:49 BP 166 / 83; Pulse 78; Resp 16 S; Temp 97.8(TE); Pulse Ox 99% on R/A; Weight 92.99 kg jd3 (R); Height 5 ft. 4 in. (162.56 cm) (R); Pain 9/10; 14:49 Body Mass Index 35.19 (92.99 kg, 162.56 cm) jd3 MDM: 14:52 Patient medically screened. kb 15:22 Data reviewed: vital signs, nurses notes. Data interpreted: Pulse oximetry: on room air kb is 99 %. Interpretation: normal. Counseling: I had a detailed discussion with the patient and/or guardian regarding: the historical points, exam findings, and any diagnostic results supporting the discharge/admit diagnosis, the need for outpatient follow up, a family practitioner, to return to the emergency department if symptoms worsen or persist or if there are any questions or concerns that arise at home. Administered Medications: 15:39 Drug: Ketorolac 60 mg Route: IM; Site: left deltoid; zb 16:05 Follow up: Response: No adverse reaction; RASS: Alert and Calm (0) zb 15:40 Drug: Bactrim (160 mg-800 mg (DS) 1 tablet Route: PO; zb 16:05 Follow up: Response: No adverse reaction zb Disposition: 16:55 Co-signature as Attending Physician, Rohith Austin MD. rn Disposition: 06/07/20 15:34 Discharged to Home. Impression: Cutaneous abscess of left hand - paronychia, middle finger. - Condition is Stable. - Discharge Instructions: Skin Abscess, Lwdu-no-[id number]. - Prescriptions for Tramadol 50 mg Oral Tablet - take 1 tablet by ORAL route every 8 hours as needed; 12 tablet. Bactrim DS 800- 160 mg Oral Tablet - take 1 tablet by ORAL route every 12 hours for 10 days; 20 tablet. - Medication Reconciliation Form, Thank You Letter, Antibiotic Education, Prescription Opioid Use form. - Follow up: Emergency Department; When: As needed; Reason: Worsening of condition. Follow up: Private Physician; When: 2 - 3 days; Reason: Recheck today's complaints, Continuance of care, Re-evaluation by your physician. Signatures: Blaire Lyon, NUCLEAR CARDIOLOGY TECHNOLOGIST-C NUCLEAR CARDIOLOGY TECHNOLOGIST-CkRohith Abreu MD MD rn Davies, Jonathon, RN RN Mary Yeager RN RN peter Corrections: (The following items were deleted from the chart) 16:06 15:34 06/07/2020 15:34 Discharged to Home. Impression: Cutaneous abscess of left hand - zb paronychia, middle finger. Condition is Stable. Forms are Medication Reconciliation Form, Thank You Letter, Antibiotic Education, Prescription Opioid Use. Follow up: Emergency Department; When: As needed; Reason: Worsening of condition. Follow up: Private Physician; When: 2 - 3 days; Reason: Recheck today's complaints, Continuance of care, Re-evaluation by your physician. kb
[2020-06-07] MEDS ORDERED: SMZ./TMP. 800/160 MG TABLET ONE (15:51)
[2020-06-07] MEDS ORDERED: KETOROLAC 30 MG/ML INJ ONE (15:51)
[2020-06-07 16:52] VITALS: BP 166/83; TEMP 97.8; O2SAT 99
== END 2020-06-07 16:06 | disposition home or self-care (01) ==
LOC: ER 14:41
DX: L03.012 Cellulitis of left finger (principal); I10 Essential (primary) hypertension; Z95.818 Presence of other cardiac implants and grafts; Z88.1 Allergy status to other antibiotic agents; Z88.3 Allergy status to other anti-infective agents; Z88.8 Allergy status to other drugs, medicaments and biological substances; Z91.040 Latex allergy status; Z91.048 Other nonmedicinal substance allergy status
CPT/HCPCS: 96372; 99283

== ENCOUNTER 2020-08-12 09:25 | Emergency (ER) | payer SELFPAY ==
[2020-08-12] MEDS ORDERED: DIAZEPAM 5 MG TABLET ONE (11:13)
[2020-08-12] MEDS ORDERED: dexAMETHasone 10 MG/ML VIAL ONE ×2 (11:14→11:55)
[2020-08-12] MEDS ORDERED: MORPHINE 4 MG/ML SYR ONE (11:14)
[2020-08-12] MEDS ORDERED: ONDANSETRON 4 MG/2 ML VIAL ONE (11:14)
[2020-08-12] MEDS ORDERED: NA CHLORIDE 0.9% 500 ML ONE (11:15)
[2020-08-12] MEDS ORDERED: NA CHLORIDE 0.9% 50 ML ONE (11:15)
[2020-08-12] MEDS ORDERED: NA CHLORIDE 0.9% 1,000 ML ONE (11:15)
[2020-08-12] MEDS ORDERED: KETOROLAC 30 MG/ML INJ ONE (11:15)
[2020-08-12 11:17] LABS: Urine Blood Negative (Negative); Urine Glucose Negative (Negative); Urine Protein Negative (Negative); Urine Specific Gravity 1.025 (1.005-1.030)
[2020-08-12 11:21] LABS: Absolute Lymphocytes (CBC) 2.6 K/uL (0.7-4.9); Basophils % 0.7 % (0-1.3); Hematocrit 36.1 % (36.0-45.0); Lymphocytes % 16.9 % (15.3-44.8); MPV 8.6 fL (7.6-11.3); RBC Red Blood Cell Count 4.04 M/uL (3.86-4.86)
--- NOTE | 2020-08-12 11:37 | ER ---
Nurse's Notes [facility] Name: Niesha Lyon Age: 50 yrs Sex: Female : 1970 Arrival Date: 08/12/2020 Time: 09:27 Bed 13 Private MD: Duran Leal B Diagnosis: Low back pain-chronic;Chronic pain, not elsewhere classified Presentation: 08/12 09:52 Chief complaint: Patient states: Pt reports an ongoing back issues for years. Pt ss reports a week and a half ago she began to have issues with bowel and bladder incontinence followed by L leg numbness and now her R leg is going numb. Sent by Dr. Leal for further evaluation and treatment. PT has disc from MRI in hand that was obtained 2 days ago. Coronavirus screen: Client denies travel out of the [place] in the last 14 days. Ebola Screen: Patient denies exposure to infectious person. Patient denies travel to an Ebola-affected area in the 21 days before illness onset. Initial Sepsis Screen: Does the patient meet any 2 criteria? No. Patient's initial sepsis screen is negative. Does the patient have a suspected source of infection? No. Patient's initial sepsis screen is negative. Risk Assessment: Do you want to hurt yourself or someone else? Patient reports no desire to harm self or others. Onset of symptoms is unknown. 09:52 Method Of Arrival: Ambulatory ss 09:52 Acuity: CHRISTIAN 2 ss Historical: - Allergies: 09:58 Amoxicillin; ss 09:58 Azithromycin; ss 09:58 Cephalexin Monohydrate; ss 09:58 Latex, Natural Rubber; ss 09:58 Keflex; ss 09:58 Oral steroids; ss - PMHx: 09:58 Anxiety; Atrial Fib; Depression; High Cholesterol; Hypertension; Myocardial infarction; ss chronic back pain; - PSHx: 09:58 Heart stents; Tonsillectomy; Bowel resection; ss - Immunization history:: Adult Immunizations up to date. - Social history:: Smoking status: Patient denies any tobacco usage or history of. - Family history:: not pertinent. Screenin:33 Abuse screen: Denies threats or abuse. Denies injuries from another. Nutritional tr6 screening: No deficits noted. Tuberculosis screening: No symptoms or risk factors identified. Fall Risk None identified. Assessment: 10:00 General: Appears in no apparent distress. Behavior is calm, cooperative, appropriate tr6 for age. Pain: Complains of pain in c/o chronic lower back pain. Neuro: No deficits noted. Level of Consciousness is awake, alert, obeys commands, Oriented to person, place, time, situation, Appropriate for age. Cardiovascular: No deficits noted. Respiratory: No deficits noted. GI: No deficits noted. : Reports incontinence. EENT: No deficits noted. Derm: No deficits noted. Musculoskeletal: No deficits noted. 11:32 Reassessment: MD Gaona at bedside. tr6 Vital Signs: 09:52 BP 118 / 77; Pulse 75; Resp 16; Temp 99.4(O); Pulse Ox 99% on R/A; Weight 108.86 kg; ss Height 5 ft. 3 in. (160.02 cm); Pain 10/10; 09:52 Body Mass Index 42.51 (108.86 kg, 160.02 cm) ss ED Course: 09:27 Patient arrived in ED. mr 09:27 Duran Leal MD is Private Physician. mr 09:57 Triage completed. ss 09:58 Arm band placed on right wrist. ss 10:04 Carlos Alberto Gaona MD is Attending Physician. angélica 11:17 Missed attempt(s): 20 gauge in left antecubital area. mt 11:33 Patient has correct armband on for positive identification. Call light in reach. Side tr6 rails up X 1. 11:33 No provider procedures requiring assistance completed. tr6 11:37 Duran Leal MD is Referral Physician. angélica Administered Medications: 11:33 CANCELLED (Duplicate Order): NS 0.9% 1000 ml IV at 125 ml/hr continuous angélica 11:34 CANCELLED (Duplicate Order): NS 0.9% 500 ml IV at bolus once angélica 11:34 CANCELLED (Duplicate Order): Decadron - Dexamethasone 10 mg IVP once angélica 11:34 CANCELLED (Duplicate Order): morphine 4 mg IVP once; RASS on ADMIN: Combtv4, Very angélica Agttd3, Agttd2, Rstlss1, AlertClm0, Drwsy-1, Lt Sdtn-2, Mod Sdtn-3, Dp Sdtn-4, UnArsble-5 11:34 CANCELLED (Duplicate Order): Zofran (Ondansetron) 4 mg IVP once; over 2 minutes angélica 11:41 Drug: TORadol (ketorolac) 60 mg Route: IM; Site: Other; tr6 11:53 Follow up: Response: No adverse reaction tr6 11:41 Drug: Decadron (dexamethasone) 10 mg Route: IM; Site: Other; tr6 11:53 Follow up: Response: No adverse reaction tr6 11:42 Drug: TORadol (ketorolac) 30 mg Route: IVP; Site: Other; tr6 11:53 Follow up: Response: No adverse reaction tr6 11:42 Drug: Valium (diazepam) 5 mg Route: PO; tr6 11:53 Follow up: Response: No adverse reaction tr6 11:43 Drug: morphine 4 mg Route: IM; Site: right ventrogluteal; tr6 11:53 Follow up: Response: No adverse reaction tr6 Outcome: 11:37 Discharge ordered by . angélica 11:54 Discharged to home via wheelchair. tr6 11:54 Condition: stable 11:54 Discharge instructions given to patient. 11:56 Patient left the ED. tr6 Signatures: Carlos Alberto Gaona MD MD cha Rivera, Mary mr Smirch, Shelby, Rabia Kwan RN, mt, Tiffany, RN RN tr6
--- NOTE | 2020-08-12 11:37 | EDPHYS ---
Physician Documentation [facility] Name: Niesha Lyon Age: 50 yrs Sex: Female : 1970 Arrival Date: 08/12/2020 Time: 09:27 Bed 13 Private MD: Duran Leal B ED Physician Carlos Alberto Gaona HPI: 08/12 10:25 This 50 yrs old Female presents to ER via Ambulatory with complaints of Back angélica Pain, Leg Numbness. 10:25 The patient presents with pain that is acute, with no known mechanism of injury, that angélica is chronic, and decreased range of motion. The symptoms are located in the low back. Onset: The symptoms/episode began/occurred 3 day(s) ago. The pain radiates to the left low back and right low back. Associated signs and symptoms: The patient has no apparent associated signs or symptoms. The problem was sustained from unknown cause. Modifying factors: The patient symptoms are alleviated by remaining still, rest, the patient symptoms are aggravated by any movement. Severity of symptoms: At their worst the symptoms were moderate, in the emergency department the symptoms are unchanged. The patient has not experienced similar symptoms in the past. Historical: - Allergies: 09:58 Amoxicillin; ss 09:58 Azithromycin; ss 09:58 Cephalexin Monohydrate; ss 09:58 Latex, Natural Rubber; ss 09:58 Keflex; ss 09:58 Oral steroids; ss - PMHx: 09:58 Anxiety; Atrial Fib; Depression; High Cholesterol; Hypertension; Myocardial infarction; ss chronic back pain; - PSHx: 09:58 Heart stents; Tonsillectomy; Bowel resection; ss - Immunization history:: Adult Immunizations up to date. - Social history:: Smoking status: Patient denies any tobacco usage or history of. - Family history:: not pertinent. ROS: 10:25 Constitutional: Negative for fever, chills, and weight loss, Eyes: Negative for injury, angélica pain, redness, and discharge, ENT: Negative for injury, pain, and discharge, Neck: Negative for injury, pain, and swelling, Cardiovascular: Negative for chest pain, palpitations, and edema, Respiratory: Negative for shortness of breath, cough, wheezing, and pleuritic chest pain, Abdomen/GI: Negative for abdominal pain, nausea, vomiting, diarrhea, and constipation, : Negative for injury, bleeding, discharge, and swelling, MS/Extremity: Negative for injury and deformity, Skin: Negative for injury, rash, and discoloration, Neuro: Negative for headache, weakness, numbness, tingling, and seizure, Psych: Negative for depression, anxiety, suicide ideation, homicidal ideation, and hallucinations, Allergy/Immunology: Negative for hives, rash, and allergies, Endocrine: Negative for neck swelling, polydipsia, polyuria, polyphagia, and marked weight changes, Hematologic/Lymphatic: Negative for swollen nodes, abnormal bleeding, and unusual bruising. 10:25 Back: Positive for decreased range of motion, pain at rest, pain with movement, of the lumbar area. Exam: 10:25 Constitutional: This is a well developed, well nourished patient who is awake, alert, angélica and in no acute distress. Head/Face: Normocephalic, atraumatic. Eyes: Pupils equal round and reactive to light, extra-ocular motions intact. Lids and lashes normal. Conjunctiva and sclera are non-icteric and not injected. Cornea within normal limits. Periorbital areas with no swelling, redness, or edema. ENT: Nares patent. No nasal discharge, no septal abnormalities noted. Tympanic membranes are normal and external auditory canals are clear. Oropharynx with no redness, swelling, or masses, exudates, or evidence of obstruction, uvula midline. Mucous membranes moist. Neck: Trachea midline, no thyromegaly or masses palpated, and no cervical lymphadenopathy. Supple, full range of motion without nuchal rigidity, or vertebral point tenderness. No Meningismus. Chest/axilla: Normal chest wall appearance and motion. Nontender with no deformity. No lesions are appreciated. Cardiovascular: Regular rate and rhythm with a normal S1 and S2. No gallops, murmurs, or rubs. Normal PMI, no JVD. No pulse deficits. Respiratory: Lungs have equal breath sounds bilaterally, clear to auscultation and percussion. No rales, rhonchi or wheezes noted. No increased work of breathing, no retractions or nasal flaring. Abdomen/GI: Soft, non-tender, with normal bowel sounds. No distension or tympany. No guarding or rebound. No evidence of tenderness throughout. Female : Normal external genitalia. Skin: Warm, dry with normal turgor. Normal color with no rashes, no lesions, and no evidence of cellulitis. MS/ Extremity: Pulses equal, no cyanosis. Neurovascular intact. Full, normal range of motion. Neuro: Awake and alert, GCS 15, oriented to person, place, time, and situation. Cranial nerves II-XII grossly intact. Motor strength 5/5 in all extremities. Sensory grossly intact. Cerebellar exam normal. Normal gait. Psych: Awake, alert, with orientation to person, place and time. Behavior, mood, and affect are within normal limits. 10:25 Back: pain, that is mild, that is moderate, ROM is painful, normal spinal alignment noted, CVA tenderness, is absent, muscle spasm, is appreciated in the left low back, left mid back, right mid back and right low back. 11:22 ECG was reviewed by the Attending Physician. [facility] Vital Signs: 09:52 BP 118 / 77; Pulse 75; Resp 16; Temp 99.4(O); Pulse Ox 99% on R/A; Weight 108.86 kg; ss Height 5 ft. 3 in. (160.02 cm); Pain 01/15; 09:52 Body Mass Index 42.51 (108.86 kg, 160.02 cm) ss MDM: 10:04 Patient medically screened. angélica 10:27 Differential diagnosis: chronic back pain, Epidural or Perispinal Abcess Fracture angélica Obesity Osteoporosis ruptured disc, spinal injury, vertebral fracture. Data reviewed: vital signs, nurses notes, lab test result(s), EKG, radiologic studies, MRI, plain films. Data interpreted: monitor and storage bin tender: rate is 75 beats/min, rhythm is regular, Pulse oximetry: is not applicable for this patient encounter. Counseling: I had a detailed discussion with the patient and/or guardian regarding: the historical points, exam findings, and any diagnostic results supporting the discharge/admit diagnosis, lab results, radiology results. 11:35 Physician consultation: Giovanni Brock MD looked at [place] MRI, NOTHING ACUTE, NOT angélica SURGICAL EMERGENT. 08/12 10:24 Order name: CBC with Diff [facility] 08/12 10:24 Order name: Comprehensive Metabolic Panel [facility] 08/12 10:24 Order name: Urine Culture [facility] 08/12 10:25 Order name: CBC with Automated Diff; Complete Time: 11:23 [facility] 08/12 10:25 Order name: Urine Culture [facility] 08/12 11:17 Order name: Urine Dipstick-Ancillary; Complete Time: 11:23 [facility] 08/12 10:29 Order name: EKG; Complete Time: 10:30 [facility] 08/12 10:29 Order name: EKG - Nurse/Tech; Complete Time: 11:18 [facility] 08/12 11:25 Order name: Labs - recollect needed: CBC eb EC:22 Rate is 69 beats/min. Rhythm is regular. QRS [place] is Normal. VT interval is normal. QRS angélica interval is normal. QT interval is normal. No Q waves. T waves are Normal. No ST changes noted. Clinical impression: Normal ECG and No evidence of ischemia. Interpreted by me. Administered Medications: 11:33 CANCELLED (Duplicate Order): NS 0.9% 1000 ml IV at 125 ml/hr continuous angélica 11:34 CANCELLED (Duplicate Order): NS 0.9% 500 ml IV at bolus once angélica 11:34 CANCELLED (Duplicate Order): Decadron - Dexamethasone 10 mg IVP once angélica 11:34 CANCELLED (Duplicate Order): morphine 4 mg IVP once; RASS on ADMIN: Combtv4, Very angélica Agttd3, Agttd2, Rstlss1, AlertClm0, Drwsy-1, Lt Sdtn-2, Mod Sdtn-3, Dp Sdtn-4, UnArsble-5 11:34 CANCELLED (Duplicate Order): Zofran (Ondansetron) 4 mg IVP once; over 2 minutes angélica 11:41 Drug: TORadol (ketorolac) 60 mg Route: IM; Site: Other; tr6 11:53 Follow up: Response: No adverse reaction tr6 11:41 Drug: Decadron (dexamethasone) 10 mg Route: IM; Site: Other; tr6 11:53 Follow up: Response: No adverse reaction tr6 11:42 Drug: TORadol (ketorolac) 30 mg Route: IVP; Site: Other; tr6 11:53 Follow up: Response: No adverse reaction tr6 11:42 Drug: Valium (diazepam) 5 mg Route: PO; tr6 11:53 Follow up: Response: No adverse reaction tr6 11:43 Drug: morphine 4 mg Route: IM; Site: right ventrogluteal; tr6 11:53 Follow up: Response: No adverse reaction tr6 Disposition: 08/12/20 11:37 Discharged to Home. Impression: Low back pain - chronic, Chronic pain, not elsewhere classified. - Condition is Stable. - Discharge Instructions: Back Pain, Adult, Chronic Back Pain, Musculoskeletal Pain, Back Pain, Adult, [id number]. - Prescriptions for Ibuprofen 600 mg Oral Tablet - take 1 tablet by ORAL route every 6 hours As needed take with food; 20 tablet. Cyclobenzaprine 5 mg Oral Tablet - take 1 tablet by ORAL route 3 times per day As needed; 15 tablet. - Medication Reconciliation Form, Thank You Letter, Antibiotic Education, Prescription Opioid Use form. - Follow up: Duran Leal; When: 2 - 3 days; Reason: Recheck today's complaints, Continuance of care, Re-evaluation by your physician. - Problem is new. - Symptoms have improved. Signatures: Dispatcher [employer] EDPR Carlos Alberto Gaona MD MD cha Smirch, Shelby, RN RN ss Botello, Elizabeth eb Ramnanan, Tiffany, RN RN tr6 Corrections: (The following items were deleted from the chart) 10:49 10:30 Lumbar Spine Wo Con ordered. [facility] EDPR 11:33 10:24 NS 0.9% 1000 ml IV at 125 ml/hr continuous ordered. [facility] angélica 11:34 10:24 NS 0.9% 500 ml IV at bolus once ordered. [facility] angélica 11:34 10:24 Decadron - Dexamethasone 10 mg IVP once ordered. replaced by [facility]son 11:34 10:24 morphine 4 mg IVP once; RASS on ADMIN: Combtv4, Very Agttd3, Agttd2, Rstlss1, angélica AlertClm0, Drwsy-1, Lt Sdtn-2, Mod Sdtn-3, Dp Sdtn-4, UnArsble-5 ordered. [facility] 11:34 10:24 Zofran (Ondansetron) 4 mg IVP once; over 2 minutes ordered. angélica angélica 11:56 11:37 08/12/2020 11:37 Discharged to Home. Impression: Low back pain - chronic; Chronic tr6 pain, not elsewhere classified. Condition is Stable. Discharge Instructions: Back Pain, Adult, Chronic Back Pain, Musculoskeletal Pain, Back Pain, Adult, [id number]. Prescriptions for Ibuprofen 600 mg Oral Tablet - take 1 tablet by ORAL route every 6 hours As needed take with food; 20 tablet, Cyclobenzaprine 5 mg Oral Tablet - take 1 tablet by ORAL route 3 times per day As needed; 15 tablet. and Forms are Medication Reconciliation Form, Thank You Letter, Antibiotic Education, Prescription Opioid Use. Follow up: Duran Leal; When: 2 - 3 days; Reason: Recheck today's complaints, Continuance of care, Re-evaluation by your physician. Problem is new. Symptoms have improved. angélica
[2020-08-12 12:01] VITALS: BP 118/77; TEMP 99.4; O2SAT 99
--- NOTE | 2020-08-13 10:39 | EKG ---
Test Date: 2020-08-12 Test Time: 11:14:01 Tail Edger: KATHERIN MEASUREMENT RESULTS: Intervals: Rate: 69 NM: 166 QRSD: 86 QT: 394 QTc: 422 [place]: P: 32 NM: 166 QRS: 19 T: 49 INTERPRETIVE STATEMENTS: Normal sinus rhythm Normal ECG Compared to ECG 12/04/2019 20:23:03 No significant changes Electronically Signed On 08-13-20 10:36:46 CDT by Bam Urena
== END 2020-08-12 11:56 | disposition home or self-care (01) ==
LOC: ER 09:25
DX: G89.29 Other chronic pain (principal); I10 Essential (primary) hypertension; I25.2 Old myocardial infarction; Z88.1 Allergy status to other antibiotic agents; Z88.8 Allergy status to other drugs, medicaments and biological substances; Z91.040 Latex allergy status; Z91.048 Other nonmedicinal substance allergy status; Z95.818 Presence of other cardiac implants and grafts
CPT/HCPCS: 36415; 81003; 85025; 87086; 87088; 93005; 96372; 96374; 99283; J1100; J2405; J7030; J7040

== ENCOUNTER 2021-06-14 05:22 | Emergency (ER) | payer SELFPAY ==
[2021-06-14] MEDS ORDERED: ONDANSETRON 4 MG/2 ML VIAL ONE (05:34)
[2021-06-14] MEDS ORDERED: MORPHINE 4 MG/ML SYR ONE (05:34)
[2021-06-14 05:39] LABS: Absolute Lymphocytes (CBC) 2.8 K/uL (0.7-4.9); Hematocrit 35.6 % (36.0-45.0); Lymphocytes % 33.7 % (15.3-44.8); MPV 7.7 fL (7.6-11.3); RBC Red Blood Cell Count 4.56 M/uL (3.86-4.86)
[2021-06-14 05:41] LABS: Protime INR 0.96
[2021-06-14] MEDS ORDERED: TENECTEPLASE 50 MG/10 ML VIAL IV ONE (05:44)
[2021-06-14] MEDS ORDERED: HEPARIN 5000 UNIT/ML 1 ML VIAL ONE (05:44)
[2021-06-14] MEDS ORDERED: NA CHLORIDE 0.9% 1,000 ML ONE (05:45)
[2021-06-14] MEDS ORDERED: HEPARIN/D5W 25,000 UNIT/500 ML BAG IV ONE (05:48)
[2021-06-14 06:12] LABS: Albumin 3.4 g/dL (3.4-5.0); Bilirubin Direct 0.1 mg/dL (0-0.2); Bilirubin Total 0.4 mg/dL (0.2-1.0); Magnesium 2.2 mg/dL (1.8-2.4); Potassium 3.7 mmol/L (3.5-5.1); Protein, Total 7.7 g/dL (6.4-8.2); Troponin High Sensitivity 7.2 pg/mL (<58.9)
--- NOTE | 2021-06-14 06:37 | ER ---
Nurse's Notes [facility] Name: Niesha Lyon Age: 51 yrs Sex: Female : 1970 Arrival Date: 06/14/2021 Time: 05:23 Bed 26 Private MD: Diagnosis: ST elevation (STEMI) myocardial infarction of inferior wall Presentation: 06/14 05:25 Chief complaint: EMS states: chest pain history of heart attack, 12 lead from ems shows sf1 possible elevation. Coronavirus screen: Vaccine status: Patient reports receiving the 2nd dose of the covid vaccine. Client denies travel out of the [place] in the last 14 days. Ebola Screen: Patient negative for fever greater than or equal to 101.5 degrees Fahrenheit, and additional compatible Ebola Virus Disease symptoms Patient denies exposure to infectious person. Patient denies travel to an Ebola-affected area in the 21 days before illness onset. Initial Sepsis Screen: Does the patient meet any 2 criteria? No. Patient's initial sepsis screen is negative. Does the patient have a suspected source of infection? No. Patient's initial sepsis screen is negative. Risk Assessment: Do you want to hurt yourself or someone else? Patient reports desire/thoughts of hurting themselves or someone else. Provider notified. Onset of symptoms was June 14, 2021 at 04:00. 05:25 Method Of Arrival: EMS: [facility] sf1 05:25 Acuity: CHRISTIAN 2 sf1 Historical: - Allergies: 05:29 Amoxicillin; sf1 05:29 Azithromycin; sf1 05:29 Cephalexin Monohydrate; sf1 05:29 Keflex; sf1 05:29 Latex, Natural Rubber; sf1 05:29 Oral steroids; sf1 - Immunization history:: Flu vaccine is up to date. - Social history:: Smoking status: Patient denies any tobacco usage or history of. Patient/guardian denies using alcohol, street drugs. Screenin:35 Abuse screen: Denies threats or abuse. Nutritional screening: No deficits noted. sf1 Tuberculosis screening: No symptoms or risk factors identified. Fall Risk None identified. Assessment: 05:20 Cardiovascular: Reports chest pain, diaphoresis, Rhythm is ST elevation on initial ekg, sf1 provider made aware Chest pain is described as severe. 05:33 Pain: Complains of pain in chest Pain radiates to left arm. sf1 Vital Signs: 05:25 BP 130 / 105; Pulse 69; Resp 22; Temp 98.6(O); Pulse Ox 99% on 2 lpm NC; Weight 108.86 sf1 kg; Height 5 ft. 4 in. (162.56 cm); Pain 10/10; 06:29 BP 125 / 71; Pulse 68; Resp 18; Pulse Ox 99% on 2 lpm NC; Weight 123.5 kg; sf1 06:29 Body Mass Index 46.73 (123.50 kg, 162.56 cm) sf1 ED Course: 05:20 Oxygen administration via nasal cannula \T\ 2L/min. sf1 05:23 Patient arrived in ED. kc5 05:25 Fabiano Washington MD is Attending Physician. kdr 05:25 Gilma Lazaro RN is Primary Nurse. sf1 05:27 Inserted saline lock: 20 gauge in right antecubital area, using aseptic technique. ds4 Blood collected. 05:28 Triage completed. sf1 05:36 Maintain EMS IV. Dressing intact. Good blood return noted. Site clean \T\ dry. Gauge \T\ sf 1 site: left hand 20G . 05:36 Patient has correct armband on for positive identification. sf1 05:37 Basic Metabolic Panel Sent. sf1 05:37 CBC with Diff Sent. sf1 05:37 LFT's Sent. sf1 05:37 Magnesium Sent. sf1 05:37 NT PRO-BNP Sent. sf1 05:37 PT-INR Sent. sf1 05:38 Troponin HS Sent. sf1 06:16 XRAY Chest (1 view) In Process Unspecified. EDMS Administered Medications: 05:37 Drug: morphine 4 mg Route: IVP; Site: right antecubital; sf1 05:37 Drug: Zofran (Ondansetron) 4 mg Route: IVP; Site: right antecubital; sf1 05:50 Drug: Heparin (AR-Bolus No thrombolytic) - HEParin 60 units/kg {Co-Signature: al4 sf1 (Ryan Minoa).} Route: IVP; Site: right antecubital; 05:50 Drug: Heparin (AR Drip) 12 units/kg/hr - (HEParin 30831 units, D5W 500 ml) sf1 {Co-Signature: al4 (Ryan Gustavo).} Route: IV; Rate: calculated rate; Site: right antecubital; 06:16 Drug: Tenecteplase 50 mg {Co-Signature: al4 (Ryan Chen).} Route: IV; Rate: sf1 calculated rate; Site: right antecubital; 06:42 CANCELLED (Physician Discretion): Nitro-Bid (nitroglycerin) Ointment 2 % 1 inches bb Transdermal once 06:44 Drug: PlaVIX (clopidogrel) 600 mg Route: PO; sf1 Outcome: 06:36 ER care complete, transfer ordered by . kdr 06:49 Transferred by helicopter to [facility], to other acute care facility: . sf1 06:49 Condition: stable 06:49 Transferred Note: report called to Divya Snyder RN sf1 06:50 Patient left the ED. sf1 Signatures: Dispatcher [employer] EDMS Fabiano Washington MD MD kdr Braden Guidry ds4 Sharri An kc5 Gilma Lazaro RN RN sf1 Obdulia Borjas RN bb Ryan Chen al4 Corrections: (The following items were deleted from the chart) 05:33 05:29 PMHx: Hypertension; sf1 sf1 05:33 05:29 PMHx: Myocardial infarction; sf1 sf1 05:33 05:29 PMHx: Anxiety; sf1 sf1 05:33 05:29 PMHx: Depression; sf1 sf1 05:33 05:29 PMHx: High Cholesterol; sf1 sf1 05:33 05:29 PMHx: Atrial Fib; sf1 sf1 05:33 05:29 PMHx: chronic back pain; sf1 sf1
--- NOTE | 2021-06-14 06:37 | EDPHYS ---
Physician Documentation [facility] Name: Niesha Lyon Age: 51 yrs Sex: Female : 1970 Arrival Date: 06/14/2021 Time: 05:23 Bed 26 Private MD: ED Physician Fabiano Washington HPI: 06/14 05:44 This 51 yrs old Female presents to ER via EMS with complaints of Chest pain. kdr 05:44 The patient or guardian reports chest pain that is located primarily in the anterior kdr chest wall, left. Onset: suddenly, at 04 00. 06:28 The pain radiates to the left arm, the left shoulder. Associated signs and symptoms: kdr Pertinent positives: diaphoresis, nausea, shortness of breath. The chest pain is described as aching, dull, a pressure. Duration: The patient or guardian reports a single episode, that is still ongoing, but improving. Modifying factors: The symptoms are alleviated by nothing. the symptoms are aggravated by nothing. Severity of pain: At its worst the pain was mild moderate in the emergency department the pain is unchanged. The patient has not experienced similar symptoms in the past. The patient has not recently seen a physician. Historical: - Allergies: 05:29 Amoxicillin; sf1 05:29 Azithromycin; sf1 05:29 Cephalexin Monohydrate; sf1 05:29 Keflex; sf1 05:29 Latex, Natural Rubber; sf1 05:29 Oral steroids; sf1 - Immunization history:: Flu vaccine is up to date. - Social history:: Smoking status: Patient denies any tobacco usage or history of. Patient/guardian denies using alcohol, street drugs. ROS: 06:28 Constitutional: Negative for fever, chills, and weight loss, Eyes: Negative for injury, kdr pain, redness, and discharge, ENT: Negative for injury, pain, and discharge, Neck: Negative for injury, pain, and swelling, Respiratory: Negative for shortness of breath, cough, wheezing, and pleuritic chest pain, Abdomen/GI: Negative for abdominal pain, nausea, vomiting, diarrhea, and constipation, Back: Negative for injury and pain, : Negative for injury, bleeding, discharge, and swelling, MS/Extremity: Negative for injury and deformity, Skin: Negative for injury, rash, and discoloration, Neuro: Negative for headache, weakness, numbness, tingling, and seizure activity. Psych: Negative for depression, anxiety, suicide ideation, homicidal ideation, and hallucinations, Allergy/Immunology: Negative for hives, rash, and allergies, Endocrine: Negative for neck swelling, polydipsia, polyuria, polyphagia, and marked weight changes, Hematologic/Lymphatic: Negative for swollen nodes, abnormal bleeding, and unusual bruising. 06:28 Cardiovascular: Positive for chest pain, Negative for edema, orthopnea, palpitations. Exam: 06:28 Constitutional: This is a well developed, well nourished patient who is awake, alert, kdr and in no acute distress. Head/Face: Normocephalic, atraumatic. Eyes: Pupils equal round and reactive to light, extra-ocular motions intact. Lids and lashes normal. Conjunctiva and sclera are non-icteric and not injected. Cornea within normal limits. Periorbital areas with no swelling, redness, or edema. Neck: Trachea midline, no thyromegaly or masses palpated, and no cervical lymphadenopathy. Supple, full range of motion without nuchal rigidity, or vertebral point tenderness. No Meningismus. Chest/axilla: Normal chest wall appearance and motion. Nontender with no deformity. No lesions are appreciated. Cardiovascular: Regular rate and rhythm with a normal S1 and S2. No gallops, murmurs, or rubs. Normal PMI, no JVD. No pulse deficits. Respiratory: Lungs have equal breath sounds bilaterally, clear to auscultation and percussion. No rales, rhonchi or wheezes noted. No increased work of breathing, no retractions or nasal flaring. Abdomen/GI: Soft, non-tender, with normal bowel sounds. No distension or tympany. No guarding or rebound. No evidence of tenderness throughout. Back: No spinal tenderness. No costovertebral tenderness. Full range of motion. Skin: Warm, dry with normal turgor. Normal color with no rashes, no lesions, and no evidence of cellulitis. MS/ Extremity: Pulses equal, no cyanosis. Neurovascular intact. Full, normal range of motion. Neuro: Awake and alert, GCS 15, oriented to person, place, time, and situation. Cranial nerves II-XII grossly intact. Motor strength 5/5 in all extremities. Sensory grossly intact. Cerebellar exam normal. Normal gait. Psych: Awake, alert, with orientation to person, place and time. Behavior, mood, and affect are within normal limits. 06:28 Patient initially presented with an EKG that appeared to have a significant J-point elevation but not strictly a tombstone appearance inferiorly. The subsequent EKG declared itself is an inferior HI Vital Signs: 05:25 BP 130 / 105; Pulse 69; Resp 22; Temp 98.6(O); Pulse Ox 99% on 2 lpm NC; Weight 108.86 sf1 kg; Height 5 ft. 4 in. (162.56 cm); Pain 10/10; 06:29 BP 125 / 71; Pulse 68; Resp 18; Pulse Ox 99% on 2 lpm NC; Weight 123.5 kg; sf1 06:29 Body Mass Index 46.73 (123.50 kg, 162.56 cm) sf1 MDM: 06:28 Data reviewed: vital signs, nurses notes, lab test result(s), radiologic studies. kdr Counseling: I had a detailed discussion with the patient and/or guardian regarding: the historical points, exam findings, and any diagnostic results supporting the discharge/admit diagnosis, lab results, radiology results, the need to transfer to another facility. ED course: Initially contacted Dr. Salazar who is on-call for cardiology here. After some discussion, it was determined that the patient be best served by being transferred to [facility] in the [facility]. The initial EKG was indeterminate and sent to the check writer salesperson at the [facility]. Subsequently a second EKG with declarative changes was obtained and also sent to the check writer salesperson at [facility]. Patient continued to be in stable condition in the ED and improved with the interventions given. She was transferred via [facility] to [facility]. 06:36 Patient medically screened. kdr 06/14 05:28 Order name: Basic Metabolic Panel; Complete Time: 06:21 kdr 06/14 05:28 Order name: CBC with Diff; Complete Time: 06:21 kdr 06/14 05:28 Order name: LFT's; Complete Time: 06:21 kdr 06/14 05:28 Order name: Magnesium; Complete Time: 06:21 kdr 06/14 05:28 Order name: NT PRO-BNP; Complete Time: 06:21 kdr 06/14 05:28 Order name: PT-INR kdr 06/14 05:28 Order name: Troponin HS; Complete Time: 06:21 kdr 06/14 05:28 Order name: XRAY Chest (1 view) kdr 06/14 05:49 Order name: COVID-19/FLU A+B (Document "Date of Onset" if Symptomatic) ds4 06/14 06:27 Order name: PTT, Activated Partial Thromb EDMS 06/14 05:28 Order name: EKG; Complete Time: 05:29 kdr 06/14 05:28 Order name: Cardiac monitoring; Complete Time: 05:37 kdr 06/14 05:28 Order name: EKG - Nurse/Tech; Complete Time: 05:37 kdr 06/14 05:28 Order name: IV Saline Lock; Complete Time: 05:37 kdr 06/14 05:28 Order name: Labs collected and sent; Complete Time: 05:37 kdr 06/14 05:28 Order name: O2 Per Protocol; Complete Time: 05:37 kdr 06/14 05:28 Order name: O2 Sat Monitoring; Complete Time: 05:37 kdr Administered Medications: 05:37 Drug: morphine 4 mg Route: IVP; Site: right antecubital; sf1 05:37 Drug: Zofran (Ondansetron) 4 mg Route: IVP; Site: right antecubital; sf1 05:50 Drug: Heparin (HI-Bolus No thrombolytic) - HEParin 60 units/kg {Co-Signature: al4 sf1 (Ryan Gustavo).} Route: IVP; Site: right antecubital; 05:50 Drug: Heparin (HI Drip) 12 units/kg/hr - (HEParin 49591 units, D5W 500 ml) sf1 {Co-Signature: al4 (Ryan Gustavo).} Route: IV; Rate: calculated rate; Site: right antecubital; 06:16 Drug: Tenecteplase 50 mg {Co-Signature: al4 (Ryan [place]).} Route: IV; Rate: sf1 calculated rate; Site: right antecubital; 06:42 CANCELLED (Physician Discretion): Nitro-Bid (nitroglycerin) Ointment 2 % 1 inches bb Transdermal once 06:44 Drug: PlaVIX (clopidogrel) 600 mg Route: PO; sf1 Disposition Summary: 06/14/21 06:36 Transfer Ordered Transfer Location: [facility] kdr Reason: Higher level of care kdr Condition: Serious kdr Problem: new kdr Symptoms: have improved kdr Accepting Physician: Dr. Cuellar(06/14/21 06:50) sf1 Diagnosis - ST elevation (STEMI) myocardial infarction of inferior wall kdr Discharge Instructions: - Discharge Summary Sheet bb Forms: - Medication Reconciliation Form bb - SBAR form bb Signatures: Dispatcher [employer] EDMS Fabiano Washington MD MD kdr Obdulia Borjas RN RN bb Gilma Lazaro RN RN sf1 Ryan Chen al4 Corrections: (The following items were deleted from the chart) 05:33 05:29 PMHx: Hypertension; sf1 sf1 05:33 05:29 PMHx: Myocardial infarction; sf1 sf1 05:33 05:29 PMHx: Anxiety; sf1 sf1 05:33 05:29 PMHx: Depression; sf1 sf1 05:33 05:29 PMHx: High Cholesterol; sf1 sf1 05:33 05:29 PMHx: Atrial Fib; sf1 sf1 05:33 05:29 PMHx: chronic back pain; sf1 sf1 06:42 05:41 Nitro-Bid (nitroglycerin) Ointment 2 % 1 inches Transdermal once ordered. kdr bb 06:50 06:36 Dr. Cuellar kdr sf1
[2021-06-14 06:39] LABS: SARS-COV-2 RT PCR NEGATIVE (NEGATIVE)
[2021-06-14] MEDS ORDERED: CLOPIDOGREL 75 MG TABLET ONE (06:42)
[2021-06-14 06:56] VITALS: TEMP 98.6; O2SAT 99
[2021-06-14 06:58] VITALS: BP 125/71
--- NOTE | 2021-06-14 08:04 | RAD REPORT ---
EXAM DESCRIPTION: Mil Single View06/14/2021 6:16 am CLINICAL HISTORY: Chest pain COMPARISON: 2019 FINDINGS: A prominent right paratracheal opacity. The lungs appear clear of acute infiltrate. Heart probably is upper limits normal size IMPRESSION: With prominent right paratracheal opacity could represent confluence of vascular structu res or lymphadenopathy. Either PA and lateral chest series or CT chest recommended for further evalua tion
--- NOTE | 2021-06-14 12:52 | EKG ---
Test Date: 2021-06-14 Test Time: 05:19:34 Ic Designer Standard Cells: SABRINA MEASUREMENT RESULTS: Intervals: Rate: 70 MT: 194 QRSD: 92 QT: 416 QTc: 449 [place]: P: 56 MT: 194 QRS: 64 T: 95 INTERPRETIVE STATEMENTS: Age and gender specific ECG analysis Normal sinus rhythm ST elevation, consider inferior injury or acute infarct ACUTE SD Consider right ventricular involvement in acute inferior infarct Abnormal ECG Compared to ECG 08/12/2020 11:14:01 ST (T wave) deviation now present Myocardial infarct finding now present Myocardial infarct finding now present Electronically Signed On 06-14-21 12:51:56 SEMI AUTOMATIC SEWING MACHINE OPERATOR by Bam Urena
--- NOTE | 2021-06-14 12:52 | EKG ---
Test Date: 2021-06-14 Test Time: 06:11:06 Barrel Dedenting Machine Operator: MEASUREMENT RESULTS: Intervals: Rate: 70 MO: 224 QRSD: 104 QT: 404 QTc: 436 [place]: P: 84 MO: 224 QRS: 76 T: 108 INTERPRETIVE STATEMENTS: Age and gender specific ECG analysis Sinus rhythm with 1st degree AV block ST elevation, consider inferior injury or acute infarct ACUTE [place] Consider right ventricular involvement in acute inferior infarct Abnormal ECG Compared to ECG 06/14/2021 05:19:34 First degree AV block now present ST (T wave) deviation still present Myocardial infarct finding still present Myocardial infarct finding still present Electronically Signed On 06-14-21 12:51:55 SUPERVISOR ROD PLACING by Bam Urena
== END 2021-06-14 06:50 | disposition short-term general hospital (02) ==
LOC: ER 05:22
DX: I21.19 ST elevation (STEMI) myocardial infarction involving other coronary artery of inferior wall (principal); Z88.1 Allergy status to other antibiotic agents; Z88.8 Allergy status to other drugs, medicaments and biological substances; Z91.040 Latex allergy status; Z91.048 Other nonmedicinal substance allergy status; Z20.822 Contact with and (suspected) exposure to COVID-19
CPT/HCPCS: 0240U; 36415; 71045; 80048; 80076; 83735; 83880; 84484; 85025; 85610; 85730; 92977; 93005; 96374; 96375; 99285; J1644; J2405; J3101; J7030

== ENCOUNTER 2021-10-19 13:25 | Emergency (ER) | payer SELFPAY ==
[2021-10-19 14:04] LABS: Urine Blood Trace-lysed (Negative); Urine Glucose Negative (Negative); Urine Protein 2+ (Negative); Urine pH 5.5 (5.0-7.0)
[2021-10-19 14:08] LABS: Absolute Lymphocytes (CBC) 2.9 K/uL (0.7-4.9); Hematocrit 38.5 % (36.0-45.0); MCV 76.3 fL (80-100); MPV 7.8 fL (7.6-11.3); RBC Red Blood Cell Count 5.05 M/uL (3.86-4.86)
[2021-10-19] MEDS ORDERED: NITROGLYCERIN 0.4 MG/TAB SL ONE (14:12)
[2021-10-19 14:15] LABS: Protime INR 1.02
--- NOTE | 2021-10-19 14:23 | RAD REPORT ---
EXAM DESCRIPTION: RAD - Chest Single View - 10/19/2021 2:12 pm CLINICAL HISTORY: CHEST PAIN Chest pain. COMPARISON: Chest Single View dated 06/14/2021; Chest Single View dated 12/04/2019; Chest Pa And Lat (2 Views) dated 06/12/2018; Chest Pa And Lat (2 Views) dated 03/05/2017 FINDINGS: Portable technique limits examination quality. The lungs are grossly clear. The heart is upper limit of normal in size. No displaced fractures. IMPRESSION: No acute intrathoracic process suspected.
[2021-10-19 14:26] LABS: ALT/SGPT 19 U/L (12-78); AST/SGOT 13 U/L (15-37); Albumin 3.5 g/dL (3.4-5.0); Alkaline Phosphatase 106 U/L (45-117); BUN Blood Urea Nitrogen 16 mg/dL (7-18); Bicarbonate 24 mmol/L (21-32); Bilirubin Total 0.3 mg/dL (0.2-1.0); Glomerular Filtration Rate 88 ml/min (=/>90); Glucose Level 108 mg/dL (74-106); NT PRO-BNP 60 pg/mL (<125); Potassium 4.1 mmol/L (3.5-5.1); Protein, Total 7.7 g/dL (6.4-8.2); Sodium Level 140 mmol/L (136-145); Troponin High Sensitivity 6.2 pg/mL (<58.9)
[2021-10-19 14:29] LABS: Bilirubin Direct < 0.1 mg/dL (0-0.2)
--- NOTE | 2021-10-19 16:22 | ER ---
Nurse's Notes [facility] Name: Niesha Lyon Age: 51 yrs Sex: Female : 1970 Arrival Date: 10/19/2021 Time: 13:26 Bed 17 Private MD: Andrey Jett T Diagnosis: Angina pectoris, unspecified Presentation: 10/19 13:32 Chief complaint: Patient states: chest pain X 24 hours, constant, feels like someone is iw doing sternal rubs, hx of [place] this year. Coronavirus screen: At this time, the client does not indicate any symptoms associated with coronavirus-19. Ebola Screen: Patient negative for fever greater than or equal to 101.5 degrees Fahrenheit, and additional compatible Ebola Virus Disease symptoms Patient denies exposure to infectious person. Patient denies travel to an Ebola-affected area in the 21 days before illness onset. No symptoms or risks identified at this time. Initial Sepsis Screen: Does the patient meet any 2 criteria? No. Patient's initial sepsis screen is negative. Does the patient have a suspected source of infection? No. Patient's initial sepsis screen is negative. Risk Assessment: Do you want to hurt yourself or someone else? Patient reports no desire to harm self or others. Onset of symptoms was October 18, 2021. 13:32 Method Of Arrival: Ambulatory iw 13:32 Acuity: CHRISTIAN 2 iw Triage Assessment: 13:45 General: Appears distressed, uncomfortable, obese, Behavior is cooperative, appropriate bp for age, anxious. Pain: Complains of pain in chest. EENT: No deficits noted. Neuro: No deficits noted. Cardiovascular: Rhythm is sinus rhythm. Respiratory: No deficits noted. GI: No signs and/or symptoms were reported involving the gastrointestinal system. : No signs and/or symptoms were reported regarding the genitourinary system. Derm: No deficits noted. Musculoskeletal: No deficits noted. Historical: - Allergies: 13:33 Amoxicillin; iw 13:33 Azithromycin; iw 13:33 Cephalexin Monohydrate; iw 13:33 Keflex; iw 13:33 Latex, Natural Rubber; iw 13:33 Oral steroids; iw - PMHx: 13:33 Myocardial infarction; Hypertensive disorder; Hypercholesterolemia; back problems; iw - PSHx: 13:33 cardiac stents; back; uterine ablation; iw - Immunization history:: Adult Immunizations up to date. - Social history:: Smoking status: Patient denies any tobacco usage or history of. Screenin:00 Abuse screen: Denies threats or abuse. Denies injuries from another. Nutritional bp screening: No deficits noted. Tuberculosis screening: No symptoms or risk factors identified. Fall Risk None identified. Assessment: 13:35 General: SEE TRIAGE NOTE. bp 15:27 Reassessment: No changes from previously documented assessment. Patient and/or family bp updated on plan of care and expected duration. Pain level reassessed. 16:36 Reassessment: PT D/C HOME AMBULATORY WITH FAMILY, DX WITH ANGINA. bp Vital Signs: 13:32 BP 158 / 96; Pulse 73; Resp 16; Temp 97.5; Pulse Ox 97% on R/A; Weight 117.93 kg; iw Height 5 ft. 4 in. (162.56 cm); Pain 8/10; 14:30 BP 125 / 78; Pulse 67; Resp 18; Pulse Ox 96% ; bp 15:26 BP 117 / 98; Pulse 72; Resp 18; Pulse Ox 96% ; bp 16:36 BP 136 / 96; Pulse 65; Resp 16; Pulse Ox 100% ; bp 13:32 Body Mass Index 44.63 (117.93 kg, 162.56 cm) iw ED Course: 13:26 Patient arrived in ED. am2 13:26 Andrey Jett MD is Private Physician. am2 13:30 Carlos Alberto Ledbetter PA is PHCP. cp 13:30 Nicolas Ramirez MD is Attending Physician. cp 13:33 Triage completed. iw 13:35 Juan Salinas, GAGE is Primary Nurse. bp 13:35 Arm band placed on. bp 13:55 Inserted saline lock: 20 gauge in right forearm, using aseptic technique. Blood bp collected. Patient maintains SpO2 saturation greater than 95% on room air. 14:00 Patient has correct armband on for positive identification. Bed in low position. Call bp light in reach. Side rails up X2. Adult w/ patient. Client placed on continuous cardiac and pulse oximetry monitoring. NIBP monitoring applied. 14:14 XRAY Chest (1 view) In Process Unspecified. EDMS 16:19 New Lopez MD is Referral Physician. cp 16:36 No provider procedures requiring assistance completed. IV discontinued, intact, bp bleeding controlled, No redness/swelling at site. Pressure dressing applied. Administered Medications: 14:00 Drug: Nitroglycerin 0.4 mg Route: Sublingual; bp 15:25 Follow up: Response: Pain is decreased bp Medication: 16:36 VIS not applicable for this client. bp Outcome: 16:20 Discharge ordered by . cp 16:36 Discharged to home ambulatory, with family. bp 16:36 Condition: stable 16:36 Discharge instructions given to patient, Instructed on discharge instructions, follow up and referral plans. Demonstrated understanding of instructions, follow-up care. 16:37 Patient left the ED. bp Signatures: Dispatcher [employer] EDMS Evita Raygoza RN RN iw Carlos Alberto Ledbetter, ROBERT PA Zoila Suárez amJuan Conway RN RN bp Corrections: (The following items were deleted from the chart) 13:34 13:32 Pulse 73bpm; Resp 16bpm; Pulse Ox 97% RA; Temp 97.5F; iw iw
--- NOTE | 2021-10-19 16:22 | EDPHYS ---
Physician Documentation [facility] Name: Niesha Lyon Age: 51 yrs Sex: Female : 1970 Arrival Date: 10/19/2021 Time: 13:26 Bed 17 Private MD: Andrey Jett T ED Physician Nicolas Ramirez HPI: 10/19 13:34 This 51 yrs old Female presents to ER via Ambulatory with complaints of Chest Pain, cp Palpitations. 13:34 Onset: The symptoms/episode began/occurred yesterday. cp 13:34 Associated signs and symptoms: The patient has no apparent associated signs or symptoms.cp 13:34 The patient or guardian reports chest pain that is located primarily in the substernal cp area. 13:34 The pain does not radiate. The chest pain is described as like someone performing a cp sternal rub. Duration: The patient or guardian reports a single episode, that is still ongoing, and unchanged. The patient has experienced a previous episode, but today's symptoms are not as bad as this previous episode. Patient reports history of ND in June of 2021. Had 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 Contacted his office and was told to go to ED for EKG. Historical: - Allergies: 13:33 Amoxicillin; iw 13:33 Azithromycin; iw 13:33 Cephalexin Monohydrate; iw 13:33 Keflex; iw 13:33 Latex, Natural Rubber; iw 13:33 Oral steroids; iw - PMHx: 13:33 Myocardial infarction; Hypertensive disorder; Hypercholesterolemia; back problems; iw - PSHx: 13:33 cardiac stents; back; uterine ablation; iw - Immunization history:: Adult Immunizations up to date. - Social history:: Smoking status: Patient denies any tobacco usage or history of. ROS: 13:40 Constitutional: Negative for body aches, chills, fever, poor PO intake. cp 13:40 Cardiovascular: Positive for chest pain, of the substernal, Negative for edema, cp palpitations. 13:40 Respiratory: Negative for cough, shortness of breath, wheezing. 13:40 Eyes: Negative for injury, pain, redness, and discharge. cp 13:40 ENT: Negative for drainage from ear(s), ear pain, sore throat, difficulty swallowing, cp difficulty handling secretions. 13:40 Abdomen/GI: Negative for abdominal pain, nausea, vomiting, and diarrhea. 13:40 Back: Negative for radiated pain. 13:40 Neuro: Negative for altered mental status, dizziness, headache, syncope, weakness. 13:40 All other systems are negative. Exam: 13:45 Constitutional: The patient appears in no acute distress, alert, awake, cp non-diaphoretic, non-toxic, well developed, well nourished, obese. 13:45 Head/Face: Normocephalic, atraumatic. cp 13:45 Eyes: Periorbital structures: appear normal, Conjunctiva: normal, no exudate, no injection, Sclera: no appreciated abnormality, Lids and lashes: appear normal, bilaterally. 13:45 ENT: External ear(s): are unremarkable, Nose: is normal, Mouth: Lips: moist, Oral mucosa: pink and intact, moist, Posterior pharynx: Airway: no evidence of obstruction, patent. 13:45 Neck: ROM/movement: is normal, is supple, without pain, no range of motions limitations. 13:45 Chest/axilla: Inspection: normal. 13:45 Cardiovascular: Rate: normal, Rhythm: regular, Edema: is not appreciated, JVD: is not appreciated. 13:45 Respiratory: the patient does not display signs of respiratory distress, Respirations: normal, no use of accessory muscles, no retractions, labored breathing, is not present, Breath sounds: are clear throughout, no decreased breath sounds, no stridor, no wheezing. 13:45 Abdomen/GI: Inspection: abdomen appears normal, Palpation: abdomen is soft and non-tender, in all quadrants. 13:45 Back: pain, is absent, ROM is normal. 13:45 Neuro: Orientation: to person, place \T\ time. Mentation: is normal, Motor: moves all fours, strength is normal, Sensation: is normal. 13:55 ECG was reviewed by the Attending Physician. cp Vital Signs: 13:32 BP 158 / 96; Pulse 73; Resp 16; Temp 97.5; Pulse Ox 97% on R/A; Weight 117.93 kg; iw Height 5 ft. 4 in. (162.56 cm); Pain 8/10; 14:30 BP 125 / 78; Pulse 67; Resp 18; Pulse Ox 96% ; bp 15:26 BP 117 / 98; Pulse 72; Resp 18; Pulse Ox 96% ; bp 16:36 BP 136 / 96; Pulse 65; Resp 16; Pulse Ox 100% ; bp 13:32 Body Mass Index 44.63 (117.93 kg, 162.56 cm) iw MDM: 13:36 Patient medically screened. cp 16:15 Data reviewed: vital signs, nurses notes, lab test result(s), EKG, radiologic studies, cp plain films. 16:15 The patient was not given aspirin in the Emergency Department. Patient reports taking cp aspirin within the past 24 hours. Test interpretation: by ED physician or midlevel provider: ECG, plain radiologic studies. Response to treatment: the patient's symptoms have resolved after treatment, the patient's pain is gone, after administration of nitro. Refusal of service: The patient/guardian displays adequate decision making capability and despite a detailed discussion of alternatives, benefits, risks, and consequences refuses: CT Scan, repeat troponin at 3 hour and admission. Patient requesting discharge to home after discussion of negative initial troponin and EKG negative for acute STEMI. Patient understands risks of missed diagnosis and . 10/19 13:35 Order name: Basic Metabolic Panel; Complete Time: 14:38 cp 10/19 14:39 Interpretation: Normal except: CL 110; GLUC 108; GFR 88. cp 10/19 13:35 Order name: CBC with Diff; Complete Time: 14:27 cp 10/19 14:27 Interpretation: Normal except: WBC 11.9; RBC 5.05; MCV 76.3; MCH 23.9; MCHC 31.3; RDW cp 17.0. 10/19 13:35 Order name: LFT's; Complete Time: 14:38 cp 10/19 14:39 Interpretation: Normal except: AST 13; GLOB 4.2; A/G 0.8. cp 10/19 13:35 Order name: Magnesium; Complete Time: 14:38 cp 10/19 13:35 Order name: NT PRO-BNP; Complete Time: 14:38 cp 10/19 13:35 Order name: PT-INR; Complete Time: 14:27 cp 10/19 13:35 Order name: Troponin HS; Complete Time: 14:38 cp 10/19 14:39 Interpretation: Troponin HS 6.2; Reviewed. cp 10/19 13:35 Order name: XRAY Chest (1 view); Complete Time: 14:27 cp 10/19 14:04 Order name: Urine Dipstick-Ancillary; Complete Time: 14:27 EDMS 10/19 14:41 Order name: LAB Add On cp 10/19 14:41 Order name: D-Dimer 10/19 15:32 Order name: Urine --Ancillary (enter results) eb 10/19 13:35 Order name: EKG; Complete Time: 13:36 cp 10/19 13:35 Order name: Cardiac monitoring; Complete Time: 13:55 cp 10/19 13:35 Order name: EKG - Nurse/Tech; Complete Time: 13:55 cp 10/19 13:35 Order name: IV Saline Lock; Complete Time: 13:55 cp 10/19 13:35 Order name: Labs collected and sent; Complete Time: 13:54 cp 10/19 13:35 Order name: O2 Per Protocol; Complete Time: 13:54 cp 10/19 13:35 Order name: O2 Sat Monitoring; Complete Time: 13:54 cp 10/19 13:35 Order name: Urine Dipstick-Ancillary (obtain specimen); Complete Time: 14:11 cp 10/19 13:35 Order name: Urine Test (obtain specimen); Complete Time: 14:11 cp EC:55 Rate is 67 beats/min. Rhythm is regular. OR interval is normal. QRS interval is normal. cp QT interval is normal. T waves are Inverted in leads III, aVR. Interpreted by me. Reviewed by me. Administered Medications: 14:00 Drug: Nitroglycerin 0.4 mg Route: Sublingual; bp 15:25 Follow up: Response: Pain is decreased bp Disposition: 16:48 Attestation: The patient's history, exam findings, diagnostics, and a summary of any [facility] interventions or procedures was reviewed in detail with Carlos Alberto JONES. Disposition Summary: 10/19/21 16:20 Discharge Ordered Location: Home cp Problem: new cp Symptoms: are resolved cp Condition: Stable cp Diagnosis - Angina pectoris, unspecified cp Followup: cp - With: New Lopez MD - When: 1 - 2 days - Reason: Recheck today's complaints Discharge Instructions: - Discharge Summary Sheet cp - Angina cp - Aspirin and Your Heart cp Forms: - Medication Reconciliation Form cp - Thank You Letter cp - Antibiotic Education cp - Prescription Opioid Use cp Signatures: Dispatcher [employer] EDMS Evita Raygoza RN RN iw Carlos Alberto Ledbetter PA PA cp Juan Salinas, RN RN bp Nicolas Ramirez MD MD [id number] Corrections: (The following items were deleted from the chart) 16:21 15:19 Chest For PE [id number] ordered. EDMS EDMS
[2021-10-19 16:58] VITALS: TEMP 97.5
[2021-10-19 17:04] VITALS: BP 136/96; O2SAT 100
--- NOTE | 2021-10-21 09:06 | EKG ---
Test Date: 2021-10-19 Test Time: 13:50:56 Field Service Poultry Technician: RUSSELL MEASUREMENT RESULTS: Intervals: Rate: 67 PA: 176 QRSD: 84 QT: 410 QTc: 433 Taylor: P: 47 PA: 176 QRS: -11 T: 39 INTERPRETIVE STATEMENTS: Normal sinus rhythm Anterior infarct, age undetermined Abnormal ECG Compared to ECG 06/14/2021 06:11:06 First degree AV block no longer present ST (T wave) deviation no longer present Myocardial infarct finding still present Electronically Signed On 10-21-21 09:03:19 CDT by Bam Urena
== END 2021-10-19 16:37 | disposition home or self-care (01) ==
LOC: ER 13:25
DX: I20.9 Angina pectoris, unspecified (principal); I10 Essential (primary) hypertension; Z95.818 Presence of other cardiac implants and grafts; I25.2 Old myocardial infarction; Z88.1 Allergy status to other antibiotic agents; Z88.8 Allergy status to other drugs, medicaments and biological substances; Z91.040 Latex allergy status
CPT/HCPCS: 36415; 71045; 80048; 80076; 81003; 81025; 83735; 83880; 84484; 85025; 85379; 85610; 93005; 99285

== ENCOUNTER 2022-06-26 08:32 | Emergency (ER) | payer SELFPAY ==
--- OUTSIDE RECORDS SUMMARY | 2022-06-26 08:37 | XMS REPORT | Continuity of Care Document ---
:1970 Author Organization [facility] t Address [address] 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 00 l Left Left Disease Recurre Methodi carpal carpal 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 00 l Trigger Trigger Disease Recurre Method i finger of finger of nce 6-06 st right right 00:00: Hospita thumb thumb 00 l Trigger Trigger Disease Recurre Method i finger of finger of nce 6-06 st left thumb left thumb 00:00: Ho spita 00 l Bilateral Bilateral Disease Active Met hodi thumb pain thumb pain 09-11 st 00:00: Hospita 00 l Allergies, Adverse Reactions, Alerts Allergy Allergy Status Severity Reaction(s) Onset Inactive Treating Comm ents Source Name Type Date Date Clinician AMOXICIL Allergy Active Other [facility] ADHESIVE Allergy Active Low Rash [address] [facility] TAPE 227 [facility] LATEX, Allergy Active Low Rash 2017-[address] [facility] NATURAL 2-27 [facility] RUBBER 00:[facility]: Medical 00 Center TOPIRAMA Allergy Active Low Rash [address] [facility] TE 27 [facility] 00 Center Adhesive Drug Active Rash [address] [facility] Tape Allergy 06-04 [facility] 00 Center Amoxicil Drug Active Other (See [address] flaco Allergy Comments) 06-04 [facility] 00 [place] Latex, Drug Active Rash [address] [facility] Natural Allergy 06-04 [facility] Rubber 00:[facility]: Medical 00 Center Topirama Drug Active Rash [facility] Allergy 06[facility]04 [facility]: [facility] 00 [place] TRAMADOL Allergy Active High Other [address] [facility] [facility] 09-11 [facility] 00:[facility]: [facility] 00 [place] AZITHROM Allergy Active Other [address] [facility] YCIN 09-11 [facility] 00:[facility] 00 Center Azithrom Drug Active Other (See [address] ycin Allergy Comments) 09-11 [facility] 00 Center Tramadol Drug Active Other (See [address] Allergy Comments) 09-11 [facility] 00:[facility]: Medical 00 [place] Azithrom Propensi Active 2016-0 Method i ycin ty to 09-11 adverse 00:00: Hospita reaction 00 l s to drug Tramadol Propensi Active Other (See 2017-0 Me thodi ty to Comments) 09-11 adverse 00:00: Hospita reaction 00 l s to drug CEPHALEX Allergy Active High Anaphylaxis [facility]21 [facility] 00 [place] FUROSEMI Allergy Active Low Rash [facility] DE 09[facility]21 [facility] 00 Center Cephalex Drug Active Anaphylaxis, [address] [facility] Allergy Rash 09-21 [facility] Center Furosemi Drug Active Rash [facility] de Allergy 09[facility]21 [facility]: Medical 00 [place] Cephalex Propensi Active Rash Method i in ty to 09-21 adverse 00:00: Hospita reaction 00 l s to drug Furosemi Propensi Active Rash Method i de ty to 6-16 st adverse 00:00: Hospita reaction 00 l s to drug NO KNOWN Allergy Active [facility]ERGIE S Social History Social Habit Start Date Stop Date Quantity Comments Source History of tobacco Smoker [facility] Hospital use Sex Assigned At [address] [facility] 00:[facility]00 [facility] Smoking Status Start Date Stop Date Source Never smoked tobacco [facility] Smoker 2015-09-22 00:00:00 [facility] Miguelito spital Medications Ordered Filled Start Stop Current Ordering Indication Dosage Frequency Signature Comments Components Source Medication Medication Date Date Medication? Clinician (SIG) Name Name rosuvastati Yes 20mg QD Take [address] [facility] n (CRESTOR) 3-11 by mouth Luke s 20 MG 16:24: nightly. Medical tablet 11 Center diphenhydrA Yes 100mg Take [address] MINE 3-11 mg by [facility] (BENADRYL) 16:24: mouth Medica l 50 MG 11 every Center capsule night as needed for Itching or Allergies. zolpidem 0 Yes 10mg Take [address] (AMBIEN) 10 3-11 by mouth Luke s mg tablet 16:24: every Medical 11 night as Center needed for Insomnia. ziprasidone Yes 40mg Take [address] (GEODON) 40 3-11 by mouth 2 Bety kes MG capsule 16:24: (two) Medica l 11 times Center daily with breakfast and dinner. isosorbide Yes 30mg QD Take [address] dinitrate 3-11 by mouth [facility] (ISORDIL) 16:24: daily. Medica l 30 MG 11 Center tablet methocarbam Yes 750mg Q.5D Take [address] oL 3-11 mg by [facility] (ROBAXIN) 16:24: mouth 2 Medic al 750 MG 11 (two) Center tablet times daily. HYDROcodone 0 Yes 1{tbl} Take [address] -acetaminop 3-11 tablet by [facility]a [place] (NORCO 16:24: mouth Medica l 7.5-325) 11 every 6 Center 7.5-325 mg (six) per tablet hours as needed for Pain. ticagrelor 2022-0 Yes 90mg Q.5D Take 1 [facility] (BRILINTA) -11 tablet (90 Zaina es 90 mg Tab 00:00: mg total) Med ical tablet 00 by mouth 2 Center (two) times daily. aspirin 81 2022- No 81mg QD Take [address] MG chewable 06-16 tablet (81 L ukes tablet 00:00: 23:59 mg total) Medic al 00 :00 by mouth Center daily. losartan 2022- No 50mg QD Take [address] (COZAAR) 50 06-16 tablet (50 L ukes MG tablet 00:00: 23:59 mg total) Me dical 00 :00 by mouth Center daily. metoprolol 2022- No 25mg Q.5D Take [address] tartrate 06-16 tablet (25 Luke s (LOPRESSOR) 00:00: 23:59 mg total) Medical 25 MG 00 :00 by mouth 2 Center tablet (two) times daily. gabapentin Yes 300mg Q.[id number] Take 300 Methodi (NEURONTIN) 6-06 [id number] mg by s t 300 mg 15:11: 3D mouth 3 Hospita capsule 16 (three) l times a day. losartan Yes 100mg QD Take 100 Meth zhao (COZAAR) 6-[address] 100 MG 15:11: mouth Hospita tablet 16 daily. l montelukast Yes 10mg QD Take 10 mg Methodi (SINGULAIR) 6-[address] 10 mg 15:11: nightly. Hospita tablet 16 l esomeprazol Yes 20mg QD Take 20 mg Methodi e (NexIUM) 6-[address] 20 MG 15:11: daily Hospita capsule 16 before l breakfast. primidone 2017-0 Yes 50mg Q.25D Take 50 mg M ethodi (MYSOLINE) 6-[address] 50 MG 15:11: (four) Hospita tablet 16 times a l day. propranolol Yes 60mg Q.[id number] Take 60 mg Methodi (INDERAL) 6-06 [id number] mouth [address] 60 MG 15:11: 3D (three) Hospita tablet 16 times a l day. sertraline Yes 100mg QD Take 100 Me thodi (ZOLOFT) 6-[address] 100 MG 15:11: mouth Hospita tablet 16 daily. l zolpidem Yes 10mg QD Take 10 mg Met hodi (AMBIEN) 10 6-[address] mg tablet 15:11: nightly as Ho spita 16 needed for l sleep. cetirizine Yes 10mg QD Take 10 mg M ethodi (ZyrTEC) 10 6-[address] MG tablet 15:11: daily. Hospit a 16 l aspirin Yes 81mg QD Take 81 mg Meth zhao (ASPIR-81) 6-[address] 81 MG 15:11: daily. Hospita enteric 16 l coated tablet atorvastati Yes 80mg QD Take 80 mg Methodi n (LIPITOR) 6-[address] 80 MG 15:11: daily. Hospita tablet 16 l Vital Signs Vital Name Observation Time Observation Value Comments Source WEIGHT 2021-06-16 03:24:00 123.378 kg HEIGHT 2021-06-14 09:00:00 162.6 cm WEIGHT 2021-06-14 09:00:00 108.863 kg WEIGHT 2021-06-16 03:24:00 123.378 kg HEIGHT 2021-06-14 09:00:00 162.6 cm WEIGHT 2021-06-14 09:00:00 108.863 kg Procedures This patient has no known procedures. Plan of Care Planned Activity Planned Date Details Comments Source Future Scheduled 2024-06-[address] Test 00:00:00 (procedure) [code = [facility] [id number]] Future Scheduled 2022-04-[address] [facility] Test 00:00:00 (12+) [code = [facility] DEPRESSION SCREENING (12+)] Future Scheduled 2022-03-30 COVID-19 VACCINE (#1) [facility] Test 03:35:21 [code = COVID-19 VACCINE (#1)] Future Scheduled 2022-03-30 Screening for [facility] Test 03:35:21 malignant neoplasm of cervix (procedure) [code = 570278710] Future Scheduled 2022-03-30 BREAST CANCER [facility] Test 03:35:21 SCREENING [code = BREAST CANCER SCREENING] Future Scheduled 2022-03-30 COLONOSCOPY SCREENING [facility] Test 03:35:21 [code = COLONOSCOPY SCREENING] Future Scheduled 2022-03-30 SHINGLES VACCINES ([address] [facility] Test 03:35:21 of 2) [code = SHINGLES VACCINES (1 of 2)] Future Scheduled 2022-03-30 INFLUENZA VACCINE [facility] Test 03:35:21 [code = INFLUENZA VACCINE] Future Scheduled 2021-12-07 INFLUENZA VACCINE (#1) [facility] 00:[facility]:00 [code = INFLUENZA Medical Ce nter VACCINE (#1)] Future Scheduled 2021 SHINGLES VACCINES ([address] [facility] Test 00:00:00 of 2) [code = SHINGLES Medic al Center VACCINES (1 of 2)] Future Scheduled 1992-01-[address] [facility] Test 00:00:00 malignant neoplasm of Medica l Center cervix (procedure) [code = 355541026] Future Scheduled 1990 DTAP/TDAP/TD VACCINES [facility] Test 00:00:00 (1 - Tdap) [code = Medical C enter DTAP/TDAP/TD VACCINES (1 - Tdap)] Future Scheduled 1989 HEPATITIS C SCREENING [facility] Test 00:00:00 [code = HEPATITIS C Medical Center SCREENING] Future Scheduled [address] [facility] Test 00:00:00 Counseling and Medical Cente r Screening (12+) [code = Tobacco Cessation Counseling and Screening (12+)] Future Scheduled 1970 COVID-19 VACCINE (#1) [facility] Test 00:00:00 [code = COVID-[address] VACCINE (#1)] Future Scheduled [address] [facility] Test 00:00:00 malignant neoplasm of Medica l Center breast (procedure) [code = 161854677] Future Scheduled [address] [facility] Test 00:00:00 (combo) [code = CT Medical C enter Colonography (combo)] Future Scheduled [address] [facility] Test 00:00:00 malignant neoplasm of Medica l Center colon (procedure) [code = 528996915] Future Scheduled [address] [facility] Test 00:00:00 malignant neoplasm of Medica l Center colon (procedure) [code = 580854814] Future Scheduled [address] [facility] Test 00:00:00 malignant neoplasm of Medica l Center colon (procedure) [code = 150431846] Future Scheduled [address] [facility] Test 00:00:00 malignant neoplasm of Medica l Center colon (procedure) [code = 935948325] Future Scheduled 1970 Sigmoidoscopy [code = [facility] 00:[facility] Sigmoidoscopy] Medical Cente r Encounters Start End Encounter Admission Attending Care Care Encounter Source Date/Time Date/Time Type Type Clinicians Facility Department ID 2021-06-14 2021-06-16 Inpatient ER MAGGI, [facility] Cardiology [id number] [facility] 07:13:00 16:18:00 STEF 2021-06-14 2021-06-14 Outpatient [facility] [id number] 6 [facility] 00:00:00 23:59:00 [facility] 2021-06-14 2021-06-14 Outpatient DOMINGA TAY [id number] [facility] 00:00:00 00:00:00 STEF umaña Results Test Description Test Time Test Comments Results Result Comments Source POCT-ACT 2021-06-16 11:21:18 Test Item Value Reference Range Interpretation Comme nts ACTIVATED CLOTTING TIME (BEAKER) 345 sec : 74-137 seconds, Baseline: TESTED AT (test code = 441) [address], [address]: Learning Center Instructor/Techni bri ID = [id number] for LEE RAMOS [id number] 04:20:09 Test Item Value Reference Range Interpretation Comments MAGNESIUM (BEAKER) 2.1 mg/dL 1.6-2.6 Specimen slightly (test code = 627) hemolyzed Learning Center Instructor ID - DBBASI METABOLIC [id number] 04:20:09 Test Item Value Reference Range Interpretation Comments SODIUM (BEAKER) 137 meq/L 136-145 (test code = 381) POTASSIUM (BEAKER) 4.1 meq/L 3.5-5.1 Specimen slightly (test code = 379) hemolyzed CHLORIDE (BEAKER) 104 meq/L 98-107 (test code = 382) CO2 (BEAKER) (test 24 meq/L 22-29 code = 355) BLOOD UREA NITROGEN 20 mg/dL 7-21 (BEAKER) (test code = 354) CREATININE (BEAKER) 0.87 mg/dL 0.57-1.25 Specimen slightly (test code = 358) hemolyzed GLUCOSE RANDOM 91 mg/dL 70-105 (BEAKER) (test code = 652) CALCIUM (BEAKER) 9.3 mg/dL 8.4-10.2 (test code = 697) EGFR (BEAKER) (test 69 mL/min/1.73 ESTIMA JESSY GFR IS code = 1092) sq m NOT ACCURATE CREATININE CLEARANCE IN PREDICTING GLOMERULAR FILTRATION RATE . ESTIMATED GFR I S NOT APPLICABLE FOR DIALYSIS PATIEN TS. Learning Center Instructor ID - DBCBC W/PLT COUNT & AUTO [id number] 03:51:08 Test Item Value Reference Range Interpretation Comments WHITE BLOOD CELL COUNT (BEAKER) 12.5 K/ L 3.5-10.5 H (test code = 775) RED BLOOD CELL COUNT (BEAKER) 4.31 M/ L 3.93-5.22 (test code = 761) HEMOGLOBIN (BEAKER) (test code = 10.7 GM/DL 11.2-15.7 L 410) HEMATOCRIT (BEAKER) (test code = 36.3 % 34.1-44.9 411) MEAN CORPUSCULAR VOLUME (BEAKER) 84.2 fL 79.4-94.8 (test code = 753) MEAN CORPUSCULAR HEMOGLOBIN 24.8 pg 25.6-32.2 L (BEAKER) (test code = 751) MEAN CORPUSCULAR HEMOGLOBIN CONC 29.5 GM/DL 32.2-35.5 L (BEAKER) (test code = 752) RED CELL DISTRIBUTION WIDTH 15.9 % 11.7-14.4 H (BEAKER) (test code = 412) PLATELET COUNT (BEAKER) (test 267 K/CU MM 150-450 code = 756) MEAN PLATELET VOLUME (BEAKER) 9.7 fL 9.4-12.3 (test code = 754) NUCLEATED RED BLOOD CELLS 0 /100 WBC 0-0 (BEAKER) (test code = 413) NEUTROPHILS RELATIVE PERCENT 64 % (BEAKER) (test code = 429) LYMPHOCYTES RELATIVE PERCENT 26 % (BEAKER) (test code = 430) MONOCYTES RELATIVE PERCENT 7 % (BEAKER) (test code = 431) EOSINOPHILS RELATIVE PERCENT 2 % (BEAKER) (test code = 432) BASOPHILS RELATIVE PERCENT 0 % (BEAKER) (test code = 437) NEUTROPHILS ABSOLUTE COUNT 8.01 K/ L 1.56-6.13 H (BEAKER) (test code = 670) LYMPHOCYTES ABSOLUTE COUNT 3.20 K/ L 1.18-3.74 (BEAKER) (test code = 414) MONOCYTES ABSOLUTE COUNT (BEAKER) 0.92 K/ L 0.24-0.36 H (test code = 415) EOSINOPHILS ABSOLUTE COUNT 0.25 K/ L 0.04-0.36 (BEAKER) (test code = 416) BASOPHILS ABSOLUTE COUNT (BEAKER) 0.04 K/ L 0.01-0.08 (test code = 417) IMMATURE GRANULOCYTES-RELATIVE 1 % 0-1 PERCENT (BEAKER) (test code = 2801) HEMOGLOBIN [id number] 11:26:10 Test Item Value Reference Range Interpretation Comments HEMOGLOBIN A1C 5.8 % See_Comment H [Automated m essage] ELECTROPHORESIS (BEAKER) The system which (test code = 6743) generated this result transmitted ref erence range: <=5.6%. The reference range was not used to int erpret this result as normal/abnormal . "The A1c is measured using a NGSP-certified method. HbA1c value equal to or greater than 6.5% as thediagnosis cutoff for diabetes. An HbA1c value of 5.7- 6.4% indicates increased risk for diabetes (prediabetes)."Learning Center Instructor ID - ADMTSH 2021-06-15 06:00:55 Test Item Value Reference Range Interpretation Comments THYROID STIMULATING HORMONE 0.901 uIU/mL 0.350-4.940 (BEAKER) (test code = 772) Learning Center Instructor ID - JENNI MLIPID [id number] 05:13:03 Test Item Value Reference Range Interpretation Comments TRIGLYCERIDES (BEAKER) (test code = 257 mg/dL 540) CHOLESTEROL (BEAKER) (test code = 144 mg/dL 631) HDL CHOLESTEROL (BEAKER) (test code 32 mg/dL = 976) LDL CHOLESTEROL CALCULATED (BEAKER) 61 mg/dL (test code = 633) Triglyceride Reference Range: Low Risk <150 Borderline 150-199 High Risk 200- 499 Very High Risk >=500Cholesterol Reference Range: Low Risk <200 Borderline 200-239 High Risk >240HDL Cholesterol Reference Range: Low Risk >=60 High Risk <40LDL Cholesterol Reference Range: Optimal <100 Near Optimal 100-129 Borderline 130-159 High 160-189 Very High >=190 Learning Center Instructor ID - [id number] 05:13:02 Test Item Value Reference Range Interpretation Comments MAGNESIUM (BEAKER) (test code = 2.3 mg/dL 1.6-2.6 627) Learning Center Instructor ID - LMBASIC METABOLIC [id number] 05:13:01 Test Item Value Reference Range Interpretation Comments SODIUM (BEAKER) 139 meq/L 136-145 (test code = 381) POTASSIUM (BEAKER) 4.1 meq/L 3.5-5.1 (test code = 379) CHLORIDE (BEAKER) 107 meq/L 98-107 (test code = 382) CO2 (BEAKER) (test 25 meq/L 22-29 code = 355) BLOOD UREA NITROGEN 20 mg/dL 7-21 (BEAKER) (test code = 354) CREATININE (BEAKER) 0.85 mg/dL 0.57-1.25 (test code = 358) GLUCOSE RANDOM 101 mg/dL 70-105 (BEAKER) (test code = 652) CALCIUM (BEAKER) 8.8 mg/dL 8.4-10.2 (test code = 697) EGFR (BEAKER) (test 71 mL/min/1.73 ESTIMA JESSY GFR IS code = 1092) sq m NOT ACCURATE CREATININE CLEARANCE IN PREDICTING GLOMERULAR FILTRATION RATE . ESTIMATED GFR I S NOT APPLICABLE FOR DIALYSIS PATIEN TS. Learning Center Instructor ID - [id number] 05:00:55 Test Item Value Reference Range Interpretation Comments PROTIME (BEAKER) (test 14.2 seconds 11.9-14.2 code = 759) INR (BEAKER) (test 1.12 See_Comment [Automat ed code = 370) message] The sy stem which generated this result transmitted reference range : <=5.90. The reference range was not used to interpret this result as normal/abnormal . PARTIAL THROMBOPLASTIN 43.8 seconds 22.5-36.0 H TIME (BEAKER) (test code = 760) RECOMMENDED COUMADIN/WARFARIN INR THERAPY RANGESSTANDARD DOSE: 2.0 - 3.0 Includes: PROPHYLAXIS for venous thrombosis, systemic embolization; TREATMENT for venous thrombosis and/or pulmonary embolus.HIGH RISK: Target INR is 2.5-3.5 for patients with mechanical heart valves.CBC W/PLT COUNT & AUTO [id number] 04:53:54 Test Item Value Reference Range Interpretation Comments WHITE BLOOD CELL COUNT (BEAKER) 10.8 K/ L 3.5-10.5 H (test code = 775) RED BLOOD CELL COUNT (BEAKER) 3.95 M/ L 3.93-5.22 (test code = 761) HEMOGLOBIN (BEAKER) (test code = 9.8 GM/DL 11.2-15.7 L 410) HEMATOCRIT (BEAKER) (test code = 33.4 % 34.1-44.9 L 411) MEAN CORPUSCULAR VOLUME (BEAKER) 84.6 fL 79.4-94.8 (test code = 753) MEAN CORPUSCULAR HEMOGLOBIN 24.8 pg 25.6-32.2 L (BEAKER) (test code = 751) MEAN CORPUSCULAR HEMOGLOBIN CONC 29.3 GM/DL 32.2-35.5 L (BEAKER) (test code = 752) RED CELL DISTRIBUTION WIDTH 15.7 % 11.7-14.4 H (BEAKER) (test code = 412) PLATELET COUNT (BEAKER) (test 246 K/CU MM 150-450 code = 756) MEAN PLATELET VOLUME (BEAKER) 10.0 fL 9.4-12.3 (test code = 754) NUCLEATED RED BLOOD CELLS 0 /100 WBC 0-0 (BEAKER) (test code = 413) NEUTROPHILS RELATIVE PERCENT 62 % (BEAKER) (test code = 429) LYMPHOCYTES RELATIVE PERCENT 28 % (BEAKER) (test code = 430) MONOCYTES RELATIVE PERCENT 8 % (BEAKER) (test code = 431) EOSINOPHILS RELATIVE PERCENT 2 % (BEAKER) (test code = 432) BASOPHILS RELATIVE PERCENT 0 % (BEAKER) (test code = 437) NEUTROPHILS ABSOLUTE COUNT 6.63 K/ L 1.56-6.13 H (BEAKER) (test code = 670) LYMPHOCYTES ABSOLUTE COUNT 3.01 K/ L 1.18-3.74 (BEAKER) (test code = 414) MONOCYTES ABSOLUTE COUNT (BEAKER) 0.85 K/ L 0.24-0.36 H (test code = 415) EOSINOPHILS ABSOLUTE COUNT 0.19 K/ L 0.04-0.36 (BEAKER) (test code = 416) BASOPHILS ABSOLUTE COUNT (BEAKER) 0.03 K/ L 0.01-0.08 (test code = 417) IMMATURE GRANULOCYTES-RELATIVE 1 % 0-1 PERCENT (BEAKER) (test code = 2801) [id number] 21:15:27 Test Item Value Reference Range Interpretation Comments PROTIME (BEAKER) (test 13.6 seconds 11.9-14.2 code = 759) INR (BEAKER) (test 1.06 See_Comment [Automat ed code = 370) message] The sy stem which generated this result transmitted reference range : <=5.90. The reference range was not used to interpret this result as normal/abnormal . PARTIAL THROMBOPLASTIN 50.0 seconds 22.5-36.0 H TIME (BEAKER) (test code = 760) RECOMMENDED COUMADIN/WARFARIN INR THERAPY RANGESSTANDARD DOSE: 2.0 - 3.0 Includes: PROPHYLAXIS for venous thrombosis, systemic embolization; TREATMENT for venous thrombosis and/or pulmonary embolus.HIGH RISK: Target INR is 2.5-3.5 for patients with mechanical heart valves.[id number] 20:54:46 Test Item Value Reference Range Interpretation Comments MAGNESIUM (BEAKER) (test code = 2.5 mg/dL 1.6-2.6 627) Learning Center Instructor ID - [id number] 20:54:46 Test Item Value Reference Range Interpretation Comments POTASSIUM (BEAKER) (test code = 3.6 meq/L 3.5-5.1 379) Learning Center Instructor ID - [id number] 13:34:14 Test Item Value Reference Range Interpretation Comments PROTIME (BEAKER) (test 13.8 seconds 11.9-14.2 code = 759) INR (BEAKER) (test 1.08 See_Comment [Automat ed code = 370) message] The sy stem which generated this result transmitted reference range : <=5.90. The reference range was not used to interpret this result as normal/abnormal . PARTIAL THROMBOPLASTIN 43.1 seconds 22.5-36.0 H TIME (BEAKER) (test code = 760) RECOMMENDED COUMADIN/WARFARIN INR THERAPY RANGESSTANDARD DOSE: 2.0 - 3.0 Includes: PROPHYLAXIS for venous thrombosis, systemic embolization; TREATMENT for venous thrombosis and/or pulmonary embolus.HIGH RISK: Target INR is 2.5-3.5 for patients with mechanical heart valves.[id number] 12:03:07 Test Item Value Reference Range Interpretation Comments PROTIME (BEAKER) (test 14.6 seconds 11.9-14.2 H code = 759) INR (BEAKER) (test 1.16 See_Comment [Automat ed code = 370) message] The sy stem which generated this result transmitted reference range : <=5.90. The reference range was not used to interpret this result as normal/abnormal . PARTIAL THROMBOPLASTIN 90.0 seconds 22.5-36.0 H TIME (BEAKER) (test code = 760) RECOMMENDED COUMADIN/WARFARIN INR THERAPY RANGESSTANDARD DOSE: 2.0 - 3.0 Includes: PROPHYLAXIS for venous thrombosis, systemic embolization; TREATMENT for venous thrombosis and/or pulmonary embolus.HIGH RISK: Target INR is 2.5-3.5 for patients with mechanical heart valves.[id number] 10:54:56 Test Item Value Reference Range Interpretation Comments PARTIAL THROMBOPLASTIN TIME > seconds 22.5-36.0 HH (BEAKER) (test code = 760) [id number] 10:38:23 Test Item Value Reference Range Interpretation Comments MAGNESIUM (BEAKER) (test code = 1.9 mg/dL 1.6-2.6 627) Learning Center Instructor ID - JENNI MBASIC METABOLIC [id number] 10:38:22 Test Item Value Reference Range Interpretation Comments SODIUM (BEAKER) 137 meq/L 136-145 (test code = 381) POTASSIUM (BEAKER) 3.9 meq/L 3.5-5.1 (test code = 379) CHLORIDE (BEAKER) 101 meq/L 98-107 (test code = 382) CO2 (BEAKER) (test 23 meq/L 22-29 code = 355) BLOOD UREA NITROGEN 26 mg/dL 7-21 H (BEAKER) (test code = 354) CREATININE (BEAKER) 0.96 mg/dL 0.57-1.25 (test code = 358) GLUCOSE RANDOM 142 mg/dL 70-105 H (BEAKER) (test code = 652) CALCIUM (BEAKER) 9.5 mg/dL 8.4-10.2 (test code = 697) EGFR (BEAKER) (test 62 mL/min/1.73 ESTIMA JESSY GFR IS code = 1092) sq m NOT ACCURATE CREATININE CLEARANCE IN PREDICTING GLOMERULAR FILTRATION RATE . ESTIMATED GFR I S NOT APPLICABLE FOR DIALYSIS PATIEN TS. Learning Center Instructor ID - JENNI MCBC W/PLT COUNT & AUTO [id number] 10:10:49 Test Item Value Reference Range Interpretation Comments WHITE BLOOD CELL COUNT (BEAKER) 15.3 K/ L 3.5-10.5 H (test code = 775) RED BLOOD CELL COUNT (BEAKER) 4.70 M/ L 3.93-5.22 (test code = 761) HEMOGLOBIN (BEAKER) (test code = 11.8 GM/DL 11.2-15.7 410) HEMATOCRIT (BEAKER) (test code = 39.8 % 34.1-44.9 411) MEAN CORPUSCULAR VOLUME (BEAKER) 84.7 fL 79.4-94.8 (test code = 753) MEAN CORPUSCULAR HEMOGLOBIN 25.1 pg 25.6-32.2 L (BEAKER) (test code = 751) MEAN CORPUSCULAR HEMOGLOBIN CONC 29.6 GM/DL 32.2-35.5 L (BEAKER) (test code = 752) RED CELL DISTRIBUTION WIDTH 15.4 % 11.7-14.4 H (BEAKER) (test code = 412) PLATELET COUNT (BEAKER) (test 360 K/CU MM 150-450 code = 756) MEAN PLATELET VOLUME (BEAKER) 9.8 fL 9.4-12.3 (test code = 754) NUCLEATED RED BLOOD CELLS 0 /100 WBC 0-0 (BEAKER) (test code = 413) NEUTROPHILS RELATIVE PERCENT 77 % (BEAKER) (test code = 429) LYMPHOCYTES RELATIVE PERCENT 18 % (BEAKER) (test code = 430) MONOCYTES RELATIVE PERCENT 4 % (BEAKER) (test code = 431) EOSINOPHILS RELATIVE PERCENT 1 % (BEAKER) (test code = 432) BASOPHILS RELATIVE PERCENT 0 % (BEAKER) (test code = 437) NEUTROPHILS ABSOLUTE COUNT 11.75 K/ L 1.56-6.13 H (BEAKER) (test code = 670) LYMPHOCYTES ABSOLUTE COUNT 2.67 K/ L 1.18-3.74 (BEAKER) (test code = 414) MONOCYTES ABSOLUTE COUNT (BEAKER) 0.60 K/ L 0.24-0.36 H (test code = 415) EOSINOPHILS ABSOLUTE COUNT 0.11 K/ L 0.04-0.36 (BEAKER) (test code = 416) BASOPHILS ABSOLUTE COUNT (BEAKER) 0.04 K/ L 0.01-0.08 (test code = 417) IMMATURE GRANULOCYTES-RELATIVE 1 % 0-1 PERCENT (BEAKER) (test code = 2801) [id number] 08:57:10 Test Item Value Reference Range Interpretation Comments ACTIVATED CLOTTING TIME 267 sec : 74 -137 seconds, (BEAKER) (test code = Baseli ne: TESTED AT 441) 49 MYERS [address], [facility] 30: Learning Center Instructor/Techni bri ID = [id number] for CONSUELO CLAROS SA [id number] 08:31:48 Test Item Value Reference Range Interpretation Comments ACTIVATED CLOTTING TIME 261 sec : 74 -137 seconds, (BEAKER) (test code = Baseli ne: TESTED AT 441) [address], [facility] 30: Learning Center Instructor/Techni bri ID = [id number] for DARLIN STONER [id number] 08:16:06 Test Item Value Reference Range Interpretation Comments ACTIVATED CLOTTING TIME 214 sec : 74 -137 seconds, (BEAKER) (test code = Baseli ne: TESTED AT 441) [address], [facility] 30: Learning Center Instructor/Techni bri ID = [id number] for DARLIN STONER
[2022-06-26 09:14] LABS: Protime INR 1.01
--- NOTE | 2022-06-26 09:38 | RAD REPORT ---
EXAM DESCRIPTION: RADChest Single View06/26/2022 9:13 am CLINICAL HISTORY: CHEST PAIN COMPARISON: Chest Single View dated 10/19/2021; Chest Single View dated 06/14/2021; Chest Single View d ated 12/04/2019; Chest Pa And Lat (2 Views) dated 06/12/2018 TECHNIQUE: Portable AP view of the chest. FINDINGS: The lungs are clear. No pneumothorax or effusion. The cardiomediastinal contours are unrem arkable. IMPRESSION: No acute cardiopulmonary process.
[2022-06-26 09:56] LABS: Absolute Lymphocytes (CBC) 3.2 K/uL (0.7-4.9); Hematocrit 36.5 % (36.0-45.0); Lymphocytes % 31.8 % (15.3-44.8); MCV 79.4 fL (80-100); MPV 8.1 fL (7.6-11.3); RBC Red Blood Cell Count 4.59 M/uL (3.86-4.86)
[2022-06-26] MEDS ORDERED: PANTOPRAZOLE 40 MG INJ ONE (10:06)
[2022-06-26 10:22] LABS: Potassium 3.8 mEq/L (3.5-5.1); Sodium Level 139 mEq/L (136-145)
[2022-06-26 10:23] LABS: BUN Blood Urea Nitrogen 20 mg/dL (7-18); Bicarbonate 29 mEq/L (21-32); Glomerular Filtration Rate 64 ml/min (=/>90); Glucose Level 108 mg/dL (74-106)
[2022-06-26 10:25] LABS: ALT/SGPT 17 U/L (13-56); AST/SGOT 14 U/L (15-37); Albumin 3.6 g/dL (3.4-5.0); Alkaline Phosphatase 103 U/L (45-117); Bilirubin Direct < 0.1 mg/dL (0-0.2); Bilirubin Total 0.4 mg/dL (0.2-1.0); Protein, Total 7.3 g/dL (6.4-8.2)
[2022-06-26 10:26] LABS: Magnesium 2.1; NT PRO-BNP 148 pg/mL (<125); Troponin High Sensitivity 6.4 (<58.9)
--- NOTE | 2022-06-26 11:07 | RAD REPORT ---
EXAM DESCRIPTION: US - Abdomen Exam Limited - 06/26/2022 9:34 am CLINICAL HISTORY: EPIGASTRIC PAIN COMPARISON: CT abdomen and pelvis 09/21/2016 TECHNIQUE: Sonographic grayscale and color flow images of the right upper quadrant were obtained. FINDINGS: The gallbladder demonstrates no gallstones. No pericholecystic fluid or gallbladder wall t hickening. The common bile duct is normal measuring 4 mm. The liver demonstrates no findings of intrahepatic biliary dilatation. IMPRESSION: Normal right upper quadrant ultrasound.
[2022-06-26] MEDS ORDERED: LIDOCAINE VISCOUS 2% SOLN 15 ML UDC ONE (11:36)
[2022-06-26] MEDS ORDERED: MAGNES/ALUMIN/SIMET 30ML UCUP ONE (11:36)
[2022-06-26] MEDS ORDERED: ACETAMINOPHEN 500 MG TAB ONE (13:35)
--- NOTE | 2022-06-26 14:07 | EDPHYS ---
Physician Documentation [facility] Name: Niesha Lyon Age: 52 yrs Sex: Female : 1970 Arrival Date: 06/26/2022 Time: 08:33 Bed 19 Private MD: ED Physician Rohith Austin HPI: 06/26 09:05 This 52 yrs old Female presents to ER via Wheelchair with complaints of Chest Pain. snw 09:05 The patient or guardian reports chest pain that is located primarily in the epigastric snw area. 09:06 Onset: acutely. The pain radiates to Associated signs and symptoms: Pertinent snw positives: nausea, shortness of breath. The chest pain is described as sharp. Duration: The patient or guardian reports a single episode. Severity of pain: At its worst the pain was moderate. The patient has experienced similar episodes in the past. Pt has a pain management MD, Dr. Leal. 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 - Social history:: Smoking status: Patient/guardian denies using tobacco, the patient reports quitting approximately 5 years ago. ROS: 09:07 Eyes: Negative for injury, pain, redness, and discharge, ENT: Negative for injury, snw pain, and discharge, Neck: Negative for injury, pain, and swelling. 09:07 : Negative for injury, bleeding, discharge, and swelling, MS/Extremity: Negative for injury and deformity, Skin: Negative for injury, rash, and discoloration, Neuro: Negative for headache, weakness, numbness, tingling, and seizure, Psych: Negative for depression, anxiety, suicide ideation, homicidal ideation, and hallucinations. 09:07 Constitutional: Positive for body aches, fever, malaise, chest pain. 09:07 Cardiovascular: Positive for chest pain, of the mid-sternal area. 09:07 Respiratory: Positive for shortness of breath. 09:07 Abdomen/GI: Positive for nausea. 09:07 Back: Positive for radiated pain. Exam: 09:05 Constitutional: This is a well developed, well nourished patient who is awake, alert, snw and in no acute distress. Essential tremor Head/Face: Normocephalic, atraumatic. Eyes: Pupils equal round and reactive to light, extra-ocular motions intact. Lids and lashes normal. Conjunctiva and sclera are non-icteric and not injected. Cornea within normal limits. Periorbital areas with no swelling, redness, or edema. ENT: Nares patent. No nasal discharge, no septal abnormalities noted. Tympanic membranes are normal and external auditory canals are clear. Oropharynx with no redness, swelling, or masses, exudates, or evidence of obstruction, uvula midline. Mucous membranes moist. Neck: Trachea midline, no thyromegaly or masses palpated, and no cervical lymphadenopathy. Supple, full range of motion without nuchal rigidity, or vertebral point tenderness. No Meningismus. Chest/axilla: Normal chest wall appearance and motion. Nontender with no deformity. No lesions are appreciated. Cardiovascular: Regular rate and rhythm with a normal S1 and S2. No gallops, murmurs, or rubs. Normal PMI, no JVD. No pulse deficits. Respiratory: Lungs have equal breath sounds bilaterally, clear to auscultation and percussion. No rales, rhonchi or wheezes noted. No increased work of breathing, no retractions or nasal flaring. Abdomen/GI: Soft, non-tender, with normal bowel sounds. No distension or tympany. No guarding or rebound. No evidence of tenderness throughout. Back: No spinal tenderness. No costovertebral tenderness. Full range of motion. Skin: Warm, dry with normal turgor. Normal color with no rashes, no lesions, and no evidence of cellulitis. MS/ Extremity: Pulses equal, no cyanosis. Neurovascular intact. Full, normal range of motion. Neuro: Awake and alert, GCS 15, oriented to person, place, time, and situation. Cranial nerves II-XII grossly intact. Motor strength 5/5 in all extremities. Sensory grossly intact. Cerebellar exam normal. Normal gait. Psych: Awake, alert, with orientation to person, place and time. Behavior, mood, and affect are within normal limits. Vital Signs: 08:41 BP 187 / 93; Pulse 57; Resp 18 S; Pulse Ox 96% ; Weight 113.4 kg; Height 5 ft. 4 in. ; iw Pain 9/10; 09:56 BP 134 / 83; Pulse 54; Resp 18; Pulse Ox 96% on R/A; db 10:30 BP 127 / 82; Pulse 53; Resp 18; Pulse Ox 97% on R/A; db 11:30 BP 134 / 70; Pulse 54; Resp 16; Pulse Ox 97% on R/A; db 12:26 BP 125 / 79; Pulse 61; Resp 15; Pulse Ox 98% on R/A; zm 13:00 BP 137 / 115; Pulse 57; Resp 18; Pulse Ox 96% on R/A; db 13:30 BP 121 / 79; Pulse 54; Resp 18; Pulse Ox 98% ; db 14:30 BP 101 / 63; Pulse 67; Resp 16; Pulse Ox 96% on R/A; db 08:41 Body Mass Index 42.91 (113.40 kg, 162.56 cm) iw 08:41 Pain Scale: Adult iw MDM: 08:54 Patient medically screened. snw 12:30 Differential diagnosis: cholecystitis, Cholelithiasis gastritis, myocarditis, snw pancreatitis, peptic ulcer disease. HEART Score: History: Slightly Suspicious (0), ECG: Non specific repolarization disturbance / LBTB / PM (1), Age: > 45 and < 65 years (1), Risk Factors: > or = 3 Risk factors for atherosclerotic disease (2), [Hypercholesterolemia] [Hypertension] [+ Family HX] Troponin: < or = 1 x Normal Limit (0), Total Score = 4. The patient was not given aspirin in the Emergency Department. Patient reports taking aspirin within the past 24 hours. Data reviewed: vital signs, nurses notes, lab test result(s), EKG, radiologic studies. I considered the following discharge prescriptions or medication management in the emergency department Medications were administered in the Emergency Department. See MAR. Historians other than the Patient: Spouse/Significant Other: . Counseling: I had a detailed discussion with the patient and/or guardian regarding: the historical points, exam findings, and any diagnostic results supporting the discharge/admit diagnosis, lab results, radiology results, the need for outpatient follow up, to return to the emergency department if symptoms worsen or persist or if there are any questions or concerns that arise at home. Response to treatment: the patient's symptoms have markedly improved after treatment. Special discussion: Based on the history and exam findings, there is no indication for further emergent testing or inpatient evaluation. I discussed with the patient/guardian the need to see the primary care provider for further evaluation of the symptoms. 06/26 08:35 Order name: Basic Metabolic Panel; Complete Time: 10:28 snw 06/26 08:35 Order name: CBC with Diff; Complete Time: 09:57 snw 06/26 08:35 Order name: LFT's; Complete Time: 10:28 w 06/26 08:35 Order name: Magnesium; Complete Time: 10:28 w 06/26 08:35 Order name: NT PRO-BNP; Complete Time: 10:28 w 06/26 08:35 Order name: PT-INR; Complete Time: 09:17 snw 06/26 08:35 Order name: Troponin HS; Complete Time: 10:28 w 06/26 08:45 Order name: Blood Culture Adult (2[facility] 06/26 08:45 Order name: Lactate w/ 2H reflex if indic. 06/26 08:45 Order name: Procalcitonin [facility] 06/26 08:45 Order name: CRP [facility] 06/26 08:46 Order name: COVID-19/FLU A+B; Complete Time: 14:20 w 06/26 11:18 Order name: Troponin High Sensitivity; Complete Time: 12:17 w 06/26 14:25 Order name: Lipase EDMS 06/26 08:35 Order name: XRAY Chest (1 view); Complete Time: 09:49 snw 06/26 08:54 Order name: US Abdomen Limited; Complete Time: 11:09 snw 06/26 08:35 Order name: EKG; Complete Time: 08:36 snw 06/26 11:18 Order name: EKG; Complete Time: 11:18 snw 06/26 08:35 Order name: Cardiac monitoring; Complete Time: 09:09 snw 06/26 08:35 Order name: EKG - Nurse/Tech; Complete Time: 09:09 snw 06/26 08:35 Order name: IV Saline Lock; Complete Time: 09:09 snw 06/26 08:35 Order name: Labs collected and sent; Complete Time: 09:10 snw 06/26 08:35 Order name: O2 Per Protocol; Complete Time: 09:10 snw 06/26 08:35 Order name: O2 Sat Monitoring; Complete Time: 09:10 snw 06/26 09:16 Order name: Labs - recollect needed; Complete Time: 09:47 em1 06/26 11:18 Order name: EKG - Nurse/Tech; Complete Time: 11:43 snw 06/26 11:47 Order name: Recheck VS; Complete Time: 12:28 snw EC:52 Rate is 54 beats/min. Rhythm is regular. QRS [place] is Normal. MI interval is normal. snw Clinical impression: Sinus bradycardia. 11:40 Rate is 54 beats/min. Rhythm is regular. QRS [place] is Normal. MI interval is normal. QRS snw interval is normal. Clinical impression: Sinus bradycardia. Administered Medications: 10:00 Drug: Pantoprazole IVP 40 mg Route: IVP; Site: left antecubital; db 13:07 Follow up: Response: No adverse reaction db 11:43 Drug: GI Cocktail without - (Maalox PO Suspension 30 ml, Lidocaine Mucous db Membrane Liquid 2 % 15 ml) Route: PO; 13:07 Follow up: Response: No adverse reaction db 13:33 Drug: Acetaminophen PO 1000 mg Route: PO; db 14:49 Follow up: Response: No adverse reaction db Disposition: 17:46 Co-signature as Attending Physician, Rohith Austin MD I reviewed the patient's care rn provided by the Advanced Practice Provider and agree with the diagnosis and treatment plan. Disposition Summary: 06/26/22 14:06 Discharge Ordered Location: Home snw Condition: Stable snw Diagnosis - Acute bronchitis, unspecified snw - Gastro-esophageal reflux disease without esophagitis snw Followup: snw - With: Emergency Department - When: As needed - Reason: Worsening of condition Followup: snw - With: Private Physician - When: 2 - 3 days - Reason: Recheck today's complaints, Continuance of care, Re-evaluation by your physician Discharge Instructions: - Discharge Summary Sheet snw - Acute Bronchitis, Adult snw - Food Choices for Gastroesophageal Reflux Disease, Adult snw - Gastroesophageal Reflux Disease, Adult snw - Rehydration, Adult snw Forms: - Work release form snw - Medication Reconciliation Form snw - Thank You Letter snw - Antibiotic Education snw - Prescription Opioid Use snw Prescriptions: - Protonix 40 mg Oral Tablet - take 1 tablet by ORAL route once daily; 30 tablet; Refills: 0, Product snw Selection Permitted - Zyrtec 10 mg Oral Tablet - take 1 tablet by ORAL route once daily As needed; 20 tablet; Refills: 0, snw Product Selection Permitted - Pepcid 20 mg Oral Tablet - take 1 tablet by ORAL route once daily; 20 tablet; Refills: 0, Product snw Selection Permitted Signatures: Dispatcher [employer] EDMS Madelyn Forrest FNP-C FOREST AIDE-Csnw Evita Raygoza, RN RN iw Rohith Austin MD MD rn Martinez, [facility] Mandy Erazo RN RN db Corrections: (The following items were deleted from the chart) 14:25 08:49 LIPASE+C.LAB.BRZ ordered. EDMS EDMS
--- NOTE | 2022-06-26 14:07 | ER ---
Nurse's Notes [facility] Name: Niesha Lyon Age: 52 yrs Sex: Female : 1970 Arrival Date: 06/26/2022 Time: 08:33 Bed 19 Private MD: Diagnosis: Acute bronchitis, unspecified;Gastro-esophageal reflux disease without esophagitis Presentation: 06/26 08:39 Chief complaint: Patient states: sharp pain in mid chest radiating to upper back, has iw been running low grade fever, pain takes her breath away, had [place] and two stents placed about one year ago. 08:39 Method Of Arrival: Wheelchair iw 08:42 Coronavirus screen: At this time, the client does not indicate any symptoms associated iw with coronavirus-19. Ebola Screen: Patient negative for fever greater than or equal to 101.5 degrees Fahrenheit, and additional compatible Ebola Virus Disease symptoms Patient denies exposure to infectious person. Patient denies travel to an Ebola-affected area in the 21 days before illness onset. No symptoms or risks identified at this time. Initial Sepsis Screen: Does the patient meet any 2 criteria? No. Patient's initial sepsis screen is negative. Does the patient have a suspected source of infection? No. Patient's initial sepsis screen is negative. Risk Assessment: Do you want to hurt yourself or someone else? Patient reports no desire to harm self or others. Onset of symptoms was June 26, 2022. 08:42 Acuity: CHRISTIAN 2 iw Triage Assessment: 08:50 General: Appears in no apparent distress. Behavior is cooperative, anxious. Pain: db Complains of pain in chest. 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 - Social history:: Smoking status: Patient/guardian denies using tobacco, the patient reports quitting approximately 5 years ago. Screenin:08 [facility] ED Fall Risk Assessment (Adult) History of falling in the last 3 months, db including since admission No falls in past 3 months (0 pts) Confusion or Disorientation No (0 pts) Intoxicated or Sedated No (0 pts) Impaired Gait No (0 pts) Mobility Assist Device Used No (0 pt) Altered Elimination No (0 pt) Score/Fall Risk Level 0 - 2 = Low Risk Oriented to surroundings, Maintained a safe environment. Abuse screen: Denies threats or abuse. Denies injuries from another. Nutritional screening: No deficits noted. Tuberculosis screening: No symptoms or risk factors identified. Assessment: 09:07 Reassessment: Patient appears in no apparent distress at this time. Patient and/or db family updated on plan of care and expected duration. Pain level reassessed. Patient is alert, oriented x 3, equal unlabored respirations, skin warm/dry/pink. chest pain similar to win had a previous heart attack. General: Appears in no apparent distress. comfortable, Behavior is cooperative, anxious. General: Behavior is. Pain: Complains of pain in chest. Cardiovascular: Reports chest pain, Capillary refill < 3 seconds. 10:30 Reassessment: Patient appears in no apparent distress at this time. Patient and/or db family updated on plan of care and expected duration. Pain level reassessed. Patient is alert, oriented x 3, equal unlabored respirations, skin warm/dry/pink. Pain: Pain radiates to mid-sternal area Pain began 0400. 11:30 Reassessment: Patient appears in no apparent distress at this time. Patient and/or db family updated on plan of care and expected duration. Pain level reassessed. Patient is alert, oriented x 3, equal unlabored respirations, skin warm/dry/pink. 12:50 Reassessment: Patient appears in no apparent distress at this time. Patient and/or db family updated on plan of care and expected duration. Pain level reassessed. Patient is alert, oriented x 3, equal unlabored respirations, skin warm/dry/pink. General: Appears in no apparent distress. comfortable. 12:59 Reassessment: provider is at bedside. db 13:34 Reassessment: Patient appears in no apparent distress at this time. Patient and/or db family updated on plan of care and expected duration. Pain level reassessed. Patient is alert, oriented x 3, equal unlabored respirations, skin warm/dry/pink. 14:49 Reassessment: Patient appears in no apparent distress at this time. Patient and/or db family updated on plan of care and expected duration. Pain level reassessed. Patient is alert, oriented x 3, equal unlabored respirations, skin warm/dry/pink. Vital Signs: 08:41 BP 187 / 93; Pulse 57; Resp 18 S; Pulse Ox 96% ; Weight 113.4 kg; Height 5 ft. 4 in. ; iw Pain 9/10; 09:56 BP 134 / 83; Pulse 54; Resp 18; Pulse Ox 96% on R/A; db 10:30 BP 127 / 82; Pulse 53; Resp 18; Pulse Ox 97% on R/A; db 11:30 BP 134 / 70; Pulse 54; Resp 16; Pulse Ox 97% on R/A; db 12:26 BP 125 / 79; Pulse 61; Resp 15; Pulse Ox 98% on R/A; zm 13:00 BP 137 / 115; Pulse 57; Resp 18; Pulse Ox 96% on R/A; db 13:30 BP 121 / 79; Pulse 54; Resp 18; Pulse Ox 98% ; db 14:30 BP 101 / 63; Pulse 67; Resp 16; Pulse Ox 96% on R/A; db 08:41 Body Mass Index 42.91 (113.40 kg, 162.56 cm) iw 08:41 Pain Scale: Adult iw Vitals: 13:00 Cardiac Rhythm Assessment Regular Sinus sigrid. db ED Course: 08:33 Patient arrived in ED. am2 08:35 Madelyn Forrest FNP-C is PHCP. snw 08:35 Rohith Austin MD is Attending Physician. snw 08:41 Arm band placed on. iw 08:42 Triage completed. iw 09:00 Inserted saline lock: 20 gauge in left antecubital area, using aseptic technique. Blood db collected. 09:07 Mandy Erazo, GAGE is Primary Nurse. db 09:08 Patient has correct armband on for positive identification. Bed in low position. Side db rails up X 1. Client placed on continuous cardiac and pulse oximetry monitoring. NIBP monitoring applied. 09:15 XRAY Chest (1 view) In Process Unspecified. EDMS 09:35 US Abdomen Limited In Process Unspecified. EDMS 10:00 First set of blood cultures drawn by me. db 10:25 Second set of blood cultures drawn by me. db 14:30 Warm blanket given. db 14:30 No provider procedures requiring assistance completed. IV discontinued, intact, db bleeding controlled, No redness/swelling at site. Patient maintains SpO2 saturation greater than 95% on room air. Administered Medications: 10:00 Drug: Pantoprazole IVP 40 mg Route: IVP; Site: left antecubital; db 13:07 Follow up: Response: No adverse reaction db 11:43 Drug: GI Cocktail without - (Maalox PO Suspension 30 ml, Lidocaine Mucous db Membrane Liquid 2 % 15 ml) Route: PO; 13:07 Follow up: Response: No adverse reaction db 13:33 Drug: Acetaminophen PO 1000 mg Route: PO; db 14:49 Follow up: Response: No adverse reaction db Medication: 10:30 VIS not applicable for this client. db Outcome: 14:06 Discharge ordered by . snw 14:30 Discharged to home ambulatory, with family. db 14:30 Condition: stable 14:30 Discharge instructions given to patient, Instructed on discharge instructions, follow up and referral plans. Prescriptions given X 3. 14:51 Patient left the ED. db Signatures: Dispatcher [employer] Madelyn Hernandez, LIZZIE SELLERSP-Evita Page, RN RN Zoila [place] Zaina zm Benton, Danielle, RN RN db
[2022-06-26 14:17] LABS: SARS-COV-2 RT PCR NEGATIVE (NEGATIVE)
[2022-06-26 14:47] LABS: C-Reactive Protein 4.94
[2022-06-26 16:30] VITALS: BP 101/63; O2SAT 96
--- NOTE | 2022-06-27 17:25 | EKG ---
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
--- NOTE | 2022-06-27 17:26 | EKG ---
Test Date: 2022-06-26 Test Time: 08:51:07 Payment Poster: RSUSELL MEASUREMENT RESULTS: Intervals: Rate: 54 CT: 206 QRSD: 94 QT: 454 QTc: 430 [place]: P: 42 CT: 206 QRS: -10 T: 31 INTERPRETIVE STATEMENTS: Sinus bradycardia Possible Anterior infarct, age undetermined Abnormal ECG Compared to ECG 10/19/2021 13:50:56 Sinus rhythm no longer present Myocardial infarct finding still present Electronically Signed On 06-27-22 17:22:05 CDT by [place]
== END 2022-06-26 14:51 | disposition home or self-care (01) ==
LOC: ER 08:32
DX: J20.9 Acute bronchitis, unspecified (principal); K21.9 Gastro-esophageal reflux disease without esophagitis; Z20.822 Contact with and (suspected) exposure to COVID-19
CPT/HCPCS: 0240U; 36415; 71045; 76705; 80048; 80076; 83605; 83690; 83735; 83880; 84145; 84484; 85025; 85610; 86140; 87040; 93005; 96374; 99284; C9113

== ENCOUNTER 2023-03-15 22:07 | Emergency (ER) | payer OTHER ==
[2023-03-15] MEDS ORDERED: IPRATROPIUM BROM 0.5MG/2.5ML ONE (23:03)
[2023-03-15] MEDS ORDERED: ALBUTEROL 2.5 MG/3 ML NEB SOL ONE (23:03)
[2023-03-15] MEDS ORDERED: LORazepam 2 MG/ML VIAL ONE (23:03)
[2023-03-15 23:30] LABS: Absolute Lymphocytes (CBC) 2.5 K/uL (0.7-4.9); Hematocrit 36.5 % (36.0-45.0); Lymphocytes % 16.7 % (15.3-44.8); MPV 8.4 fL (7.6-11.3); Platelets 237 thou/uL (152-406); RBC Red Blood Cell Count 4.69 M/uL (3.86-4.86)
[2023-03-15] MEDS ORDERED: ASPIRIN 81 MG CHEWABLE TABLET ONE (23:34)
[2023-03-15 23:41] LABS: Protime INR 1.1
[2023-03-15 23:52] LABS: ALT/SGPT 17 U/L (13-56); AST/SGOT 11 U/L (15-37); Albumin 3.3 g/dL (3.4-5.0); Alkaline Phosphatase 102 U/L (45-117); BUN Blood Urea Nitrogen 17 mg/dL (7-18); Bicarbonate 29 mEq/L (21-32); Bilirubin Total 0.3 mg/dL (0.2-1.0); Glomerular Filtration Rate 63 ml/min (=/>90); Glucose Level 108 mg/dL (74-106); Magnesium 1.8 mg/dL (1.6-2.4); NT PRO-BNP 652 pg/mL (<125); Potassium 3.4 mEq/L (3.5-5.1); Protein, Total 8.1 g/dL (6.4-8.2); Sodium Level 138 mEq/L (136-145)
[2023-03-15 23:58] LABS: Bilirubin Direct < 0.1 mg/dL (0-0.2); Bilirubin Indirect, Calculated ND mg/dL (0.2-0.8)
--- NOTE | 2023-03-16 03:01 | EDPHYS ---
Physician Documentation [facility] Name: Niesha Lyon Age: 53 yrs Sex: Female : 1970 Arrival Date: 03/15/2023 Time: 22:07 Bed 16 Private MD: Andrey Jett T ED Physician Carlos Alberto Gaona HPI: 03/15 22:45 This 53 yrs old Female presents to ER via Wheelchair with complaints of Shortness Of cp Breath, Chest Pain. 22:45 The patient or guardian reports chest pain that is located primarily in the anterior cp chest wall, right. 22:45 Onset: 3 day(s) ago. The pain radiates to right back. Associated signs and symptoms: cp Pertinent positives: cough, shortness of breath, Pertinent negatives: diaphoresis, lower extremity pain, lower extremity swelling, syncope, vomiting. Modifying factors: the symptoms are aggravated by cough. Severity of pain: in the emergency department the pain is unchanged despite home interventions. Historical: - Allergies: 22:25 Keflex; pf1 22:25 Latex; pf1 22:25 Oral steroids; pf1 22:25 Cephalexin Monohydrate; pf1 22:25 Azithromycin; pf1 22:25 Amoxicillin; pf1 - PMHx: 22:25 back problems; Hypercholesterolemia; Hypertensive disorder; Myocardial infarction; pf1 - PSHx: 22:25 back; cardiac stents; uterine ablation; pf1 - Immunization history:: Adult Immunizations up to date, Client reports receiving the 2nd dose of the Covid vaccine, Last tetanus immunization: > 10 years ago Flu vaccine is not up to date. - Social history:: Smoking status: Patient denies any tobacco usage or history of. Patient/guardian denies using alcohol, street drugs. ROS: 22:50 Constitutional: Negative for fever, poor PO intake, cp 22:50 Cardiovascular: Positive for chest pain, of the right side of chest, Negative for cp edema, palpitations, 22:50 Respiratory: Positive for cough, with no reported sputum, shortness of breath, at rest. 22:50 Eyes: Negative for injury, pain, redness, and discharge, cp 22:50 Neck: Negative for pain with movement, pain at rest, stiffness, 22:50 Abdomen/GI: Negative for abdominal pain, vomiting, diarrhea, constipation, 22:50 Neuro: Negative for altered mental status, dizziness, headache, syncope, weakness, cp 22:50 All other systems are negative, Exam: 22:30 ECG was reviewed by the Attending Physician. cp 22:55 Constitutional: The patient appears in no acute distress, alert, awake, cp non-diaphoretic, non-toxic, well developed, well nourished, obese, uncomfortable, 22:55 Head/Face: Normocephalic, atraumatic. cp 22:55 Eyes: Periorbital structures: appear normal, Conjunctiva: normal, no exudate, no injection, Sclera: no appreciated abnormality, Lids and lashes: appear normal, bilaterally, 22:55 ENT: External ear(s): are unremarkable, Nose: is normal, Mouth: Lips: moist, Oral mucosa: moist, Posterior pharynx: Airway: no evidence of obstruction, patent, Tonsils: no enlargement, no exudate, erythema, is not appreciated, exudate, is not appreciated, 22:55 Neck: ROM/movement: is normal, is supple, without pain, no range of motions limitations, no meningismus, no nuchal rigidity, 22:55 Chest/axilla: Inspection: normal, 22:55 Cardiovascular: Rate: normal, Rhythm: regular, Edema: is not appreciated, JVD: is not appreciated, 22:55 Respiratory: mild respiratory distress is noted, Respirations: labored breathing, that is mild, Breath sounds: bronchial sounds, that are mild, decreased breath sounds, that are moderate, stridor, is not appreciated, 22:55 Abdomen/GI: Inspection: obese Palpation: abdomen is soft and non-tender, in all quadrants, 22:55 Back: CVA tenderness, is absent, 22:55 Skin: no rash present. 22:55 Neuro: Orientation: to person, place \T\ time. Mentation: is normal, Motor: moves all fours, strength is normal, Sensation: is normal, Vital Signs: 22:15 Weight 122.47 kg; Height 5 ft. 3 in. ; Pain 9/10; pf1 22:15 BP 186 / 89; Pulse 64; Resp 16; Temp 97.1; Pulse Ox 95% on R/A; pf1 23:03 BP 141 / 64; Pulse 55; Resp 14; Pulse Ox 100% on nebulizer treatment; km8 12 00:00 BP 118 / 72; Pulse 51; Resp 13; Pulse Ox 97% on 2 lpm NC; km8 01:00 BP 116 / 66; Pulse 53; Resp 13; Pulse Ox 98% on 2 lpm NC; km8 02:30 BP 98 / 51; Pulse 49; Resp 12; Pulse Ox 98% on 1 lpm NC; km8 03:00 BP 97 / 71; Pulse 54; Resp 16; Pulse Ox 93% on R/A; km8 03/15 22:15 Body Mass Index 47.83 (122.47 kg, 160.02 cm) pf1 03/15 22:15 Pain Scale: Adult pf1 [place] Coma Score: 03/15 23:08 Eye Response: spontaneous(4). Motor Response: obeys commands(6). Verbal Response: km8 oriented(5). Total: 15. MDM: 22:16 Patient medically screened. cp 03/16 03:00 The patient was given aspirin in the Emergency Department. cp 03:00 Differential diagnosis: abnormal EKG, acute myocardial infarction, acute pericarditis, cp pericarditis, pleurisy, pneumonia, pneumothorax, pulmonary embolus. Data reviewed: vital signs, nurses notes, lab test result(s), EKG, radiologic studies, CT scan, plain films. Consideration of Admission/Observation Escalation of care including admission/observation considered. I considered the following discharge prescriptions or medication management in the emergency department Medications were administered in the Emergency Department. See MAR. Independent interpretation of the following test(s) in the Emergency Department EKG: See my EKG interpretation above. Care significantly affected by the following chronic conditions: Hypertension, Obesity. Counseling: I had a detailed discussion with the patient and/or guardian regarding the historical points, exam findings, and any diagnostic results supporting the discharge/admit diagnosis, lab results, radiology results, the need for outpatient follow up, a family practitioner, to return to the emergency department if symptoms worsen or persist or if there are any questions or concerns that arise at home. Response to treatment: the patient's symptoms have markedly improved after treatment, patient sleeping comfortably in exam room, and as a result, I will discharge patient. Special discussion: Based on the patient's history, exam, and Dx evaluation, there is no indication for emergent intervention or inpatient Tx. It is understood by the patient/guardian that if the Sx's persist or worsen they need to return immediately for re-evaluation. 03/15 22:40 Order name: Basic Metabolic Panel; Complete Time: 00:17 cp 03/16 00:17 Interpretation: Normal except: K 3.4; GLUC 108; CRE 1.07; GFR 63. cp 03/15 22:40 Order name: CBC with Diff; Complete Time: 00:17 cp 03/16 00:18 Interpretation: Normal except: WBC 14.70; HGB 11.8; MCV 78.0; MCH 25.3; RDW 16.3; ONUR% cp 74.0; NEUT A 10.9. 12 22:40 Order name: LFT's; Complete Time: 00:17 cp 03/15 22:40 Order name: Magnesium; Complete Time: 00:17 cp 03/15 22:40 Order name: NT PRO-BNP; Complete Time: 00:17 cp 03/15 22:40 Order name: PT-INR; Complete Time: 00:17 cp 03/15 22:40 Order name: Troponin HS; Complete Time: 00:17 cp 03/15 22:41 Order name: COVID-19 SARS RT PCR; Complete Time: 00:17 cp 03/15 22:41 Order name: Influenza Screen (a \T\ B); Complete Time: 00:17 cp 03/15 22:40 Order name: XRAY Chest (1 view) cp 03/16 00:19 Order name: CT Chest For PE Angio cp 03/15 22:40 Order name: EKG; Complete Time: 22:40 cp 03/15 22:40 Order name: Cardiac monitoring; Complete Time: 22:40 cp 03/15 22:40 Order name: EKG - Nurse/Tech; Complete Time: 22:43 cp 03/15 22:40 Order name: IV Saline Lock; Complete Time: 23:06 cp 1208 22:40 Order name: Labs collected and sent; Complete Time: 23:06 cp 03/15 22:40 Order name: O2 Per Protocol; Complete Time: 22:40 cp 03/15 22:40 Order name: O2 Sat Monitoring; Complete Time: 22:40 cp EC/08 22:30 Rate is 65 beats/min. Rhythm is regular. KS interval is normal. QRS interval is normal. cp QT interval is normal. T waves are Inverted in leads III, aVR. Interpreted by me. Reviewed by me. Administered Medications: 23:06 Drug: Ativan IVP 1 mg IVP once Route: IVP; Site: left antecubital; km8 23:21 Follow up: Response: No adverse reaction; Anxiety decreased 23:06 Drug: DuoNeb Nebulize (2.5 mg - 0.5 mg) 3 ml Nebulizer once Route: Nebulizer; km8 23:21 Follow up: Response: No adverse reaction 8 23:21 Drug: Aspirin PO Chewable Tablet 324 mg PO once; 81 mg tablets x 4 Route: PO; 8 03/16 01:19 Follow up: Response: No adverse reaction 8 02:48 CANCELLED (Physician Discretion): [id number] mg IVP once cp 03:01 Drug: Decadron - Dexamethasone IVP 10 mg IVP once Route: IVP; Site: left antecubital; 03:16 Follow up: Response: No adverse reaction km8 Disposition Summary: 03/16/23 03:00 Discharge Ordered Notes: Location: Home cp Problem: new cp Symptoms: have improved cp Condition: Stable cp Diagnosis - Cough cp - Chest pain, unspecified cp Followup: cp - With: Private Physician - When: 2 - 3 days - Reason: Recheck today's complaints Discharge Instructions: - Discharge Summary Sheet cp - Nonspecific Chest Pain, Adult cp - Cool Mist Vaporizer cp - Aspirin and Your Heart cp - Cough, Adult cp Forms: - Medication Reconciliation Form cp - Thank You Letter cp - Antibiotic Education cp - Prescription Opioid Use cp - Patient Portal Instructions cp - Leadership Thank You Letter cp Prescriptions: - Bromfed DM 2-30-10 mg/5 mL Oral syrup - administer 10 milliliter ORAL route every 6 hours as needed for cold symptoms; cp 240 milliliter; Refills: 0, Product Selection Permitted - Albuterol Sulfate 2.5 mg /3 mL (0.083 %) Inhalation Solution for Nebulization - inhale 1 unit NEBULIZATION route every 8 hours As needed; 1 unit; Refills: 0, cp Product Selection Permitted - Doxycycline Hyclate 100 mg Oral Tablet - take 1 tablet ORAL route every 12 hours; 20 tablet; Refills: 0, Product cp Selection Permitted - Prednisone 20 mg Oral Tablet - take 2 tablets ORAL route once daily for 5 days; 10 tablet; Refills: 0, Product cp Selection Permitted Signatures: Dispatcher [employer] Carlos Alberto Kong PA PA cp Nathaly Ren, RN RN pf1 Jesenia Corcoran RN RN km8 Corrections: (The following items were deleted from the chart) 02:48 02:46 MethylPrednisoLONE IVP 125 mg IVP once ordered. [facility] 02:50 03/15 22:27 ECG was reviewed by the Attending Physician. [facility] 03/16 02:50 03/15 22:27 Rate is 65 beats/min. Rhythm is regular. KS interval is normal. QRS cp interval is normal. QT interval is normal. T waves are Inverted in leads III, aVR. Interpreted by me. Reviewed by me. cp
--- NOTE | 2023-03-16 03:01 | ER ---
Nurse's Notes [facility] Name: Niesha Lyon Age: 53 yrs Sex: Female : 1970 Arrival Date: 03/15/2023 Time: 22:07 Bed 16 Private MD: Andrey Jett T Diagnosis: Cough;Chest pain, unspecified Presentation: 03/15 22:15 Chief complaint: Patient states: SOB with constant right side chest pain of 9 that pf1 radiates to back,onset yesterday with cough and congestion for 3 days with low grade fever. 22:15 Coronavirus screen: Vaccine status: Patient reports receiving the 2nd dose of the covid pf1 vaccine. [employer] Client denies travel out of the [place] in the last 14 days. Client presents with at least one sign or symptom that may indicate coronavirus-19. Ebola Screen: Patient negative for fever greater than or equal to 101.5 degrees Fahrenheit, and additional compatible Ebola Virus Disease symptoms. Initial Sepsis Screen: Does the patient meet any 2 criteria? No. Patient's initial sepsis screen is negative. Does the patient have a suspected source of infection? No. Patient's initial sepsis screen is negative. Risk Assessment: Do you want to hurt yourself or someone else? Patient reports no desire to harm self or others. 22:15 Method Of Arrival: Wheelchair pf1 22:15 Acuity: CHRISTIAN 2 pf1 23:10 Onset of symptoms was March 12, 2023. km8 Triage Assessment: 23:11 General: Appears in no apparent distress. comfortable, Behavior is cooperative, km8 appropriate for age, anxious. Respiratory: Reports shortness of breath Onset: The symptoms/episode began/occurred gradually, the patient has moderate shortness of breath. Historical: - Allergies: 22:25 Keflex; pf1 22:25 Latex; pf1 22:25 Oral steroids; pf1 22:25 Cephalexin Monohydrate; pf1 22:25 Azithromycin; pf1 22:25 Amoxicillin; pf1 - PMHx: 22:25 back problems; Hypercholesterolemia; Hypertensive disorder; Myocardial infarction; pf1 - PSHx: 22:25 back; cardiac stents; uterine ablation; pf1 - Immunization history:: Adult Immunizations up to date, Client reports receiving the 2nd dose of the Covid vaccine, Last tetanus immunization: > 10 years ago Flu vaccine is not up to date. - Social history:: Smoking status: Patient denies any tobacco usage or history of. Patient/guardian denies using alcohol, street drugs. Screenin:08 [facility] ED Fall Risk Assessment (Adult) History of falling in the last 3 months, km8 including since admission No falls in past 3 months (0 pts) Confusion or Disorientation No (0 pts) Intoxicated or Sedated No (0 pts) Impaired Gait No (0 pts) Mobility Assist Device Used No (0 pt) Altered Elimination No (0 pt) Score/Fall Risk Level 0 - 2 = Low Risk Oriented to surroundings, Maintained a safe environment, Educated pt \T\ family on fall prevention, incl call for assistance when getting out of bed, Assessed \T\ reinforced patient's understanding of fall precautions. Abuse screen: Denies threats or abuse. Denies injuries from another. Nutritional screening: No deficits noted. Tuberculosis screening: No symptoms or risk factors identified. Assessment: 23:08 General: Appears in no apparent distress. comfortable, Behavior is cooperative, km8 appropriate for age, anxious. Pain: Complains of pain in chest Pain radiates to back Pain currently is 8 out of 10 on a pain scale. Neuro: Lee Agitation-Sedation Scale (RASS): 0 - Alert and Calm Level of Consciousness is awake, alert, obeys commands, Oriented to person, place, time, situation. Cardiovascular: Reports chest pain, shortness of breath, Capillary refill < 3 seconds Patient's skin is warm and dry. Rhythm is sinus bradycardia. Respiratory: Airway is patent Respiratory effort is even, unlabored, Respiratory pattern is regular, symmetrical, Breath sounds with wheezes bilaterally. GI: No signs and/or symptoms were reported involving the gastrointestinal system. : No signs and/or symptoms were reported regarding the genitourinary system. EENT: No signs and/or symptoms were reported regarding the EENT system. Derm: No signs and/or symptoms reported regarding the dermatologic system. Skin is intact, is healthy with good turgor, Skin is dry, Skin is pink, warm \T\ dry. normal, Skin temperature is warm. Musculoskeletal: No signs and/or symptoms reported regarding the musculoskeletal system. Range of motion: intact in all extremities. 03/16 00:02 Reassessment: Patient appears in no apparent distress at this time. Patient and/or km8 family updated on plan of care and expected duration. Pain level reassessed. Patient is alert, oriented x 3, equal unlabored respirations, skin warm/dry/pink. Patient states feeling better. Patient states symptoms have improved. 01:00 Reassessment: Patient appears in no apparent distress at this time. No changes from [facility] previously documented assessment. Patient and/or family updated on plan of care and expected duration. Pain level reassessed. Patient is alert, oriented x 3, equal unlabored respirations, skin warm/dry/pink. 02:00 Reassessment: Patient appears in no apparent distress at this time. No changes from [facility] previously documented assessment. Patient and/or family updated on plan of care and expected duration. Pain level reassessed. Patient is alert, oriented x 3, equal unlabored respirations, skin warm/dry/pink. 03:00 Reassessment: Patient appears in no apparent distress at this time. No changes from [facility] previously documented assessment. Patient and/or family updated on plan of care and expected duration. Pain level reassessed. Patient is alert, oriented x 3, equal unlabored respirations, skin warm/dry/pink. Vital Signs: 03/15 22:15 Weight 122.47 kg; Height 5 ft. 3 in. ; Pain 9/10; pf1 22:15 BP 186 / 89; Pulse 64; Resp 16; Temp 97.1; Pulse Ox 95% on R/A; pf1 23:03 BP 141 / 64; Pulse 55; Resp 14; Pulse Ox 100% on nebulizer treatment; [facility] 12 00:00 BP 118 / 72; Pulse 51; Resp 13; Pulse Ox 97% on 2 lpm NC; 8 01:00 BP 116 / 66; Pulse 53; Resp 13; Pulse Ox 98% on 2 lpm NC; 8 02:30 BP 98 / 51; Pulse 49; Resp 12; Pulse Ox 98% on 1 lpm NC; [facility] 03:00 BP 97 / 71; Pulse 54; Resp 16; Pulse Ox 93% on R/A; 8 12 22:15 Body Mass Index 47.83 (122.47 kg, 160.02 cm) pf1 03/15 22:15 Pain Scale: Adult pf1 [place] Coma Score: 03/15 23:08 Eye Response: spontaneous(4). Motor Response: obeys commands(6). Verbal Response: km8 oriented(5). Total: 15. ED Course: 22:12 Patient arrived in ED. es 22:13 Andrey Jett MD is Private Physician. es 22:16 [facility] cp 22:16 Carlos Alberto Gaona MD is Attending Physician. cp 22:25 Triage completed. pf1 22:36 Jesenia Corcoran, RN is Primary Nurse. km8 23:00 XRAY Chest (1 view) In Process Unspecified. EDMS 23:00 Inserted saline lock: 22 gauge in left antecubital area, using aseptic technique. Blood km8 collected. 23:06 Basic Metabolic Panel Sent. km8 23:06 CBC with Diff Sent. km8 23:06 LFT's Sent. km8 23:06 Magnesium Sent. km8 23:06 NT PRO-BNP Sent. km8 23:06 PT-INR Sent. km8 23:06 Troponin HS Sent. km8 23:06 COVID-19 SARS RT PCR Sent. km8 23:06 Influenza Screen (a \T\ B) Sent. km8 23:08 No provider procedures requiring assistance completed. Patient maintains SpO2 km8 saturation greater than 95% on room air. 23:08 Patient has correct armband on for positive identification. Bed in low position. Call km8 light in reach. Side rails up X2. Client placed on continuous cardiac and pulse oximetry monitoring. NIBP monitoring applied. Door closed. Noise minimized. Lights dimmed. Warm blanket given. 23:10 Arm band placed on right wrist. km8 23:46 Oxygen administration via nasal cannula \T\ 2L/min. km8 03/16 01:57 CT Chest For PE Angio In Process Unspecified. EDMS 03:15 IV discontinued, intact, bleeding controlled, No redness/swelling at site. Pressure km8 dressing applied. 03:15 Provided Education on: d/c teaching. km8 Administered Medications: 03/15 23:06 Drug: Ativan IVP 1 mg IVP once Route: IVP; Site: left antecubital; km8 23:21 Follow up: Response: No adverse reaction; Anxiety decreased km8 23:06 Drug: DuoNeb Nebulize (2.5 mg - 0.5 mg) 3 ml Nebulizer once Route: Nebulizer; km8 23:21 Follow up: Response: No adverse reaction km8 23:21 Drug: Aspirin PO Chewable Tablet 324 mg PO once; 81 mg tablets x 4 Route: PO; km8 03/16 01:19 Follow up: Response: No adverse reaction 02:48 CANCELLED (Physician Discretion): [id number] mg IVP once cp 03:01 Drug: Decadron - Dexamethasone IVP 10 mg IVP once Route: IVP; Site: left antecubital; 8 03:16 Follow up: Response: No adverse reaction Medication: 03/15 23:08 VIS not applicable for this client. Outcome: 03/16 03:00 Discharge ordered by . cp 03:15 Discharged to home ambulatory, with family, km8 03:15 Condition: good 03:15 Discharge instructions given to patient, family, Instructed on discharge instructions, follow up and referral plans. medication usage, Demonstrated understanding of instructions, follow-up care, medications, Prescriptions given X 4, 03:17 Patient left the ED. ha1 Signatures: Dispatcher [employer] EDMS Silvina Dye Corey, PA PA cp Michela Durán RN RN ha1 Nathaly Ren RN RN 1 Jesenia Corcoran RN RN 8 Corrections: (The following items were deleted from the chart) 02:43 01:00 BP 116 / 66; Pulse 53bpm; Resp 13bpm; Pulse Ox 98% RA; 02:43 00:00 BP 118 / 72; Pulse 51bpm; Resp 13bpm; Pulse Ox 97% RA; [facility] 02:43 02:30 BP 98 / 51; Pulse 49bpm; Resp 12bpm; Pulse Ox 98% RA; [facility] 03:16 03:15 Discharge instructions given to patient, family, Instructed on discharge 8 instructions, follow up and referral plans. medication usage, Demonstrated understanding of instructions, follow-up care, medications, Prescriptions given X 2, 8
[2023-03-16] MEDS ORDERED: dexAMETHasone 10 MG/ML VIAL ONE (03:08)
[2023-03-16 03:41] VITALS: TEMP 97.1
[2023-03-16 03:48] VITALS: BP 97/71; O2SAT 93
--- NOTE | 2023-03-18 14:16 | RAD REPORT ---
EXAM DESCRIPTION: RAD - Chest Single View - 03/15/2023 10:58 pm CLINICAL HISTORY: 3 years Female, Chest pain;Cough COMPARISON: Chest radiograph dated 06/26/2022 IMPRESSION: No focal lung consolidation. No pleural effusion. No pneumothorax. Cardiomediastinal silhouette is enlarged Mild vascular congestion. No acute osseous abnormality. Electronically signed by: Jadiel Palma DO 03/15/2023 11:11 PM ARTIFICIAL FOLIAGE ARRANGER Due to temporary technical issues with the PACS/Fluency reporting system, reports are being signed by the in house radiologist without review as a courtesy to ensure prompt reporting. The interpreting r adiologist is fully responsible for the content of the report.
--- NOTE | 2023-03-18 14:17 | RAD REPORT ---
EXAM DESCRIPTION: CT - Chest For Pe Angio - 03/16/2023 7:24 am CLINICAL HISTORY: Chest pain;SOB COMPARISON: None Available. TECHNIQUE: CTA of the chest obtained following the uncomplicated intravenous administration of iodin ated contrast. 3-D/MIP reformatted images of the chest available for evaluation. This exam was perfor med according to our departmental dose-optimization program, which includes automated exposure contro l, adjustment of the mA and/or kV according to patient size and/or use of iterative reconstruction te [place]nique. FINDINGS: Chest: Pulmonary arteries: Contrast bolus is adequate.No filling defects identified in the pulmonary arterie s to suggest pulmonary embolus. Thyroid: No abnormalities of the visualized thyroid. Great Vessels: Great vessels have normal anatomic configuration. Thoracic Aorta: Atherosclerotic calcification thoracic aorta. No evidence of aortic dissection. Heart: Cardiomegaly. Coronary artery atherosclerosis. Lymph Nodes: No enlarged mediastinal lymph nodes identified. Esophagus: Small hiatal hernia. Other: No additional findings. Lungs: Rotatory motion artifact. Mild bilateral dependent atelectasis. Fine interlobular septal thick ening. Pleura: No pleural effusion or pneumothorax. Trachea/Airways: No abnormalities of the visualized trachea or airways. Bones: No destructive osseous lesions. Upper Abdomen: Limited images of the upper abdomen demonstrate no definite abnormalities of visualize d portions of the liver, gallbladder, pancreas, spleen, adrenal glands, or kidneys. IMPRESSION: 1. No pulmonary embolus. No aortic dissection. No acute pneumonic process. 2. Cardiomegaly with mild interstitial pulmonary edema pattern. Electronically signed by: Ryan Do DO 03/16/2023 02:18 AM DANCE TEACHER M Due to temporary technical issues with the PACS/Fluency reporting system, reports are being signed by the in house radiologist without review as a courtesy to ensure prompt reporting. The interpreting r adiologist is fully responsible for the content of the report.
--- NOTE | 2023-03-19 13:55 | EKG ---
Test Date: 2023-03-15 Test Time: 22:20:55 Police Detective: JAVAN MEASUREMENT RESULTS: Intervals: Rate: 65 OK: 176 QRSD: 88 QT: 406 QTc: 422 [place]: P: 46 OK: 176 QRS: 56 T: 24 INTERPRETIVE STATEMENTS: Normal sinus rhythm Septal infarct, age undetermined Abnormal ECG Compared to ECG 06/26/2022 11:38:40 Myocardial infarct finding now present Sinus bradycardia no longer present Electronically Signed On 03-19-23 13:42:58 MANAGER TRADE by [place]
== END 2023-03-16 03:17 | disposition home or self-care (01) ==
LOC: ER 22:07
DX: R07.9 Chest pain, unspecified (principal); R05.9 Cough, unspecified; I10 Essential (primary) hypertension; I25.2 Old myocardial infarction; E78.00 Pure hypercholesterolemia, unspecified; Z95.5 Presence of coronary angioplasty implant and graft
CPT/HCPCS: 93005; 85025; 80048; 36415; 83735; 85610; 80076; 84484; 83880; 87635; 87804 ×2; 71275; 71045; 94640; 96375; 96374; 99285; Q9967; J7613; J7644; J1100

== ENCOUNTER → 2023-04-20 | Emergency (ER) | payer OTHER ==
--- NOTE | 2023-04-20 13:09 | RAD REPORT ---
EXAM DESCRIPTION: RAD - Chest Single View - 04/20/2023 1:03 pm CLINICAL HISTORY: Congestion;Cough Chest pain. COMPARISON: <Comparisons> FINDINGS: Portable technique limits examination quality. The lungs are grossly clear. The heart is normal in size. No displaced fractures. IMPRESSION: No acute intrathoracic process suspected.
--- NOTE | 2023-04-20 14:49 | ER ---
Nurse's Notes [facility] Name: Niesha Lyon Age: 53 yrs Sex: Female : 1970 Arrival Date: 04/20/2023 Time: 11:36 Bed DX4 Private MD: Diagnosis: Acute upper respiratory infection, unspecified Presentation: 04/20 12:02 Chief complaint: Patient states: cough, congestion, shortness of breath, headache, nj1 chest pains since yesterday. Coronavirus screen: Vaccine status: Patient reports receiving the 2nd dose of the covid vaccine. Ebola Screen: Patient denies travel to an Ebola-affected area in the 21 days before illness onset. Initial Sepsis Screen: Does the patient meet any 2 criteria? No. Patient's initial sepsis screen is negative. Does the patient have a suspected source of infection? No. Patient's initial sepsis screen is negative. Risk Assessment: Do you want to hurt yourself or someone else? Patient reports no desire to harm self or others. Onset of symptoms was April 19, 2023. 12:02 Method Of Arrival: Ambulatory nj1 12:02 Acuity: CHRISTIAN 3 nj1 Historical: - Allergies: 12:04 Amoxicillin; nj1 12:04 Azithromycin; nj1 12:04 Cephalexin Monohydrate; nj1 12:04 Keflex; nj1 12:04 Latex; nj1 12:04 Oral steroids; nj1 - PMHx: 12:04 back problems; Hypercholesterolemia; Hypertensive disorder; Myocardial infarction; nj1 - PSHx: 12:04 back; cardiac stents; uterine ablation; nj1 - Immunization history:: Client reports receiving the 2nd dose of the Covid vaccine. - Social history:: Smoking status: Patient denies any tobacco usage or history of. Screenin:55 [facility] ED Fall Risk Assessment (Adult) Score/Fall Risk Level 0 - 2 = Low Risk hb Oriented to surroundings, Maintained a safe environment, Educated pt \T\ family on fall prevention, incl call for assistance when getting out of bed. Abuse screen: Denies threats or abuse. Denies injuries from another. Nutritional screening: No deficits noted. Tuberculosis screening: No symptoms or risk factors identified. Assessment: 14:53 Reassessment: Patient appears in no apparent distress at this time. No changes from hb previously documented assessment. Patient and/or family updated on plan of care and expected duration. Pain level reassessed. Patient is alert, oriented x 3, equal unlabored respirations, skin warm/dry/pink. Vital Signs: 12:02 BP 154 / 109; Pulse 62; Resp 18; Temp 98.2; Pulse Ox 95% ; Weight 117.93 kg; Height 5 nj1 ft. 4 in. ; 14:52 BP 145 / 77; Pulse 62; Resp 18; Temp 98.1(O); Pulse Ox 95% ; Pain 8/10; hb 12:02 Body Mass Index 44.63 (117.93 kg, 162.56 cm) nj1 14:52 Pain Scale: Adult hb ED Course: 11:37 Patient arrived in ED. ts1 11:38 Blaire Lyon FNP-C is [facility]. kb 11:38 Carlos Alberto Gaona MD is Attending Physician. kb 12:04 Triage completed. nj1 12:05 Arm band placed on right wrist. nj1 13:04 Chest Single View XRAY In Process Unspecified. EDMS 14:55 Patient has correct armband on for positive identification. hb 14:55 No provider procedures requiring assistance completed. Patient did not have IV access hb during this emergency room visit. Administered Medications: No medications were administered Outcome: 14:48 Discharge ordered by MD. kb 14:55 Discharged to home ambulatory, with significant other, hb 14:55 Condition: stable 14:55 Discharge instructions given to patient, Instructed on discharge instructions, follow up and referral plans. medication usage, Demonstrated understanding of instructions, follow-up care, medications, 15:07 Patient left the ED. hb Signatures: Dispatcher [employer] EDIA Blaire Lyon FNP-C FNP-Ckb Baxter, Heather RN RN Annie Miguel RN RN nj1 Jennifer Porras PAS PAS ts1
--- NOTE | 2023-04-20 14:49 | EDPHYS ---
Physician Documentation [facility] Name: Niesha Lyon Age: 53 yrs Sex: Female : 1970 Arrival Date: 04/20/2023 Time: 11:36 Bed DX4 Private MD: ED Physician Carlos Alberto Gaona HPI: 04/20 14:58 This 53 yrs old Female presents to ER via Ambulatory with complaints of Chest kb Congestion, Cough, Shortness Of Breath. 14:58 Patient is a 53-year-old female who presents for cough, congestion, body aches, fever, kb headache, shortness of breath that started 2 days ago. Spouse has similar symptoms that started 3 days ago. Denies nausea, vomiting, diarrhea. Historical: - Allergies: 12:04 Amoxicillin; nj1 12:04 Azithromycin; nj1 12:04 Cephalexin Monohydrate; nj1 12:04 Keflex; nj1 12:04 Latex; nj1 12:04 Oral steroids; nj1 - PMHx: 12:04 back problems; Hypercholesterolemia; Hypertensive disorder; Myocardial infarction; nj1 - PSHx: 12:04 back; cardiac stents; uterine ablation; nj1 - Immunization history:: Client reports receiving the 2nd dose of the Covid vaccine. - Social history:: Smoking status: Patient denies any tobacco usage or history of. ROS: 14:57 Abdomen/GI: Negative for abdominal pain, nausea, vomiting, diarrhea, and constipation, kb 14:57 Constitutional: Positive for body aches, fatigue, fever, malaise, 14:57 ENT: Positive for rhinorrhea, sinus congestion, 14:57 Respiratory: Positive for cough, shortness of breath, 14:57 Neuro: Positive for headache, 14:57 All other systems are negative, Exam: 14:57 Constitutional: This is a well developed, well nourished patient who is awake, alert, kb and in no acute distress. Head/Face: Normocephalic, atraumatic. ENT: Moist Mucous membranes Cardiovascular: Regular rate Respiratory: Respirations even and unlabored. No increased work of breathing. Talking in full sentences Skin: Warm, dry with normal turgor. Normal color. MS/ Extremity: Pulses equal, no cyanosis. Neurovascular intact. Full, normal range of motion. Neuro: Awake and alert, GCS 15, oriented to person, place, time, and situation. Moves all extremities. Normal gait. Vital Signs: 12:02 BP 154 / 109; Pulse 62; Resp 18; Temp 98.2; Pulse Ox 95% ; Weight 117.93 kg; Height 5 nj1 ft. 4 in. ; 14:52 BP 145 / 77; Pulse 62; Resp 18; Temp 98.1(O); Pulse Ox 95% ; Pain 8/10; hb 12:02 Body Mass Index 44.63 (117.93 kg, 162.56 cm) nj1 14:52 Pain Scale: Adult hb MDM: 11:38 Patient medically screened. kb 14:58 Differential diagnosis: flu, covid, uri, pneumonia. Data reviewed: vital signs, nurses kb notes. Counseling: I had a detailed discussion with the patient and/or guardian regarding the historical points, exam findings, and any diagnostic results supporting the discharge/admit diagnosis, lab results, radiology results, the need for outpatient follow up, a family practitioner, to return to the emergency department if symptoms worsen or persist or if there are any questions or concerns that arise at home. 04/20 12:05 Order name: Flu; Complete Time: 12:53 kb 04/20 12:05 Order name: SARS-COV-2 RT PCR; Complete Time: 13:03 kb 04/20 12:05 Order name: Chest Single View XRAY; Complete Time: 13:15 kb Administered Medications: No medications were administered Disposition Summary: 04/20/23 14:48 Discharge Ordered Notes: Location: Home kb Condition: Stable kb Diagnosis - Acute upper respiratory infection, unspecified kb Followup: kb - With: Emergency Department - When: As needed - Reason: Worsening of condition Followup: kb - With: Private Physician - When: 2 - 3 days - Reason: Recheck today's complaints, Continuance of care, Re-evaluation by your physician Discharge Instructions: - Discharge Summary Sheet kb - Upper Respiratory Infection, Adult, [id number] kb - Viral Respiratory Infection, [id number] kb Forms: - Work release form kb - Medication Reconciliation Form kb - Thank You Letter kb - Antibiotic Education kb - Prescription Opioid Use kb - Patient Portal Instructions kb - Leadership Thank You Letter kb Signatures: Dispatcher [employer] Blaire Henry, FRONTEND ENGINEER-C GERMÁN-Annie Mcdowell RN RN nj1
[2023-04-20 15:58] VITALS: BP 145/77; TEMP 98.1; O2SAT 95
== END ==
LOC: ER 11:36
DX: J06.9 Acute upper respiratory infection, unspecified (principal); Z11.52 Encounter for screening for COVID-19; Z88.1 Allergy status to other antibiotic agents; Z88.3 Allergy status to other anti-infective agents; Z88.8 Allergy status to other drugs, medicaments and biological substances; Z91.040 Latex allergy status
CPT/HCPCS: 71045; 87635; 87804; 99283

== ENCOUNTER 2023-05-12 01:06 | Observation (INO) | payer OTHER ==
[2023-05-12 01:44] LABS: Absolute Lymphocytes (CBC) 2.6 K/uL (0.7-4.9); Hematocrit 38.3 % (36.0-45.0); Lymphocytes % 32.9 % (15.3-44.8); MCV 78.4 fL (80-100); Platelets 271 thou/uL (152-406); RBC Red Blood Cell Count 4.88 M/uL (3.86-4.86)
[2023-05-12 01:55] LABS: Potassium 3.9 mEq/L (3.5-5.1); Troponin High Sensitivity 9.2 pg/mL (<58.9)
--- NOTE | 2023-05-12 02:18 | EDPHYS ---
Physician Documentation [facility] Name: Niesha Lyon Age: 53 yrs Sex: Female : 1970 Arrival Date: 05/12/2023 Time: 01:06 Bed 7 Private MD: ED Physician Rohith Austin HPI: 05/12 01:31 This 53 yrs old Female presents to ER via Wheelchair with complaints of chest pain. rn 01:31 The patient or guardian reports chest pain that is located primarily in the substernal rn area. Onset: 45 minute(s) ago. The pain radiates to left neck. Associated signs and symptoms: Pertinent positives: None. Pertinent negatives: abdominal pain, palpitations, shortness of breath, syncope, vomiting. The chest pain is described as aching, a heaviness. Duration: The patient or guardian reports multiple episodes, that are intermittent. Modifying factors: The symptoms are alleviated by NTG, X1. the symptoms are aggravated by nothing. Severity of pain: At its worst the pain was moderate in the emergency department the pain has improved. The patient has experienced a previous episode. Patient reports substernal chest pain, started 45 minutes prior to arrival, radiates up to left neck. Does report was sick 2 weeks ago with cough. No fever. No abdominal pain. No vomiting. Patient states feels similar to previous VT. Last stent/VT was 2 years ago.. Historical: - Allergies: 01:16 Amoxicillin; jb4 01:16 Cephalexin Monohydrate; jb4 01:16 Azithromycin; jb4 01:16 Keflex; jb4 01:16 Latex; jb4 01:16 Oral steroids; jb4 - PMHx: 01:16 Hypercholesterolemia; Hypertensive disorder; Myocardial infarction; back problems; jb4 - PSHx: 01:16 back; cardiac stents; uterine ablation; jb4 - Immunization history:: Adult Immunizations up to date. - Social history:: Smoking status: Patient denies any tobacco usage or history of. - Family history:: not pertinent. - Hospitalizations: : No recent hospitalization is reported. ROS: 01:31 Constitutional: Negative for fever, chills, and weight loss, Cardiovascular: Positive rn for chest pain Respiratory: Negative for shortness of breath, cough, wheezing, and pleuritic chest pain, Abdomen/GI: Negative for abdominal pain, nausea, vomiting, diarrhea, and constipation, MS/Extremity: Negative for injury and deformity, Skin: Negative for injury, rash, and discoloration, Neuro: Negative for headache, weakness, numbness, tingling, and seizure, Exam: 01:31 Constitutional: This is a well developed, well nourished patient who is awake, alert, rn appears anxious Head/Face: Normocephalic, atraumatic. Cardiovascular: Regular rate and rhythm. No pulse deficits. Respiratory: No increased work of breathing, no retractions or nasal flaring. Abdomen/GI: Soft, nontender Neuro: Awake and alert, GCS 15 02:28 ECG was reviewed by the Attending Physician. rn Vital Signs: 01:13 BP 201 / 101; Pulse 95; Resp 18; Temp 98.1(O); Pulse Ox 95% on R/A; Weight 122.47 kg; jb4 Height 5 ft. 4 in. ; 02:05 BP 187 / 86; Pulse 54; Pulse Ox 95% on R/A; tm6 02:59 BP 169 / 114; Pulse 54; Pulse Ox 96% on R/A; tm6 01:13 Body Mass Index 46.34 (122.47 kg, 162.56 cm) jb4 [place] Coma Score: 01:23 Eye Response: spontaneous(4). Motor Response: obeys commands(6). Verbal Response: km8 oriented(5). Total: 15. MDM: 01:12 Patient medically screened. rn 02:15 Differential diagnosis: acute myocardial infarction, acute pericarditis, anxiety, rn coronary artery disease costochondritis, esophagitis, gastritis, gastroesophageal reflux disease (GERD), pericarditis, pleurisy, pneumonia, pneumothorax, pulmonary embolus, stable angina, thoracic aortic disection, unstable angina. HEART Score: History: Moderately Suspicious (1), ECG: Normal (0), Age: > 45 and < 65 years (1), Risk Factors: > or = 3 Risk factors for atherosclerotic disease (2), Troponin: < or = 1 x Normal Limit (0), Total Score = 4. Data reviewed: vital signs, nurses notes, lab test result(s), EKG, radiologic studies, plain films. 02:16 The patient was given aspirin in the Emergency Department. Consideration of recording studio intern/Observation Patient was admitted/placed on observation. Escalation of care including admission/observation considered. Counseling: I had a detailed discussion with the patient and/or guardian regarding the historical points, exam findings, and any diagnostic results supporting the discharge/admit diagnosis, lab results, radiology results, the need for further work-up and treatment in the hospital. Response to treatment: the patient's symptoms have mildly improved after treatment, and as a result, I will admit patient. 05/12 01:20 Order name: Basic Metabolic Panel; Complete Time: 02: rn 05/12 01:20 Order name: CBC with Diff; Complete Time: 02: rn 05/12 01:20 Order name: NT PRO-BNP; Complete Time: 02: rn 05/12 01:20 Order name: Troponin HS; Complete Time: 02: rn 05/12 03:22 Order name: Urinalysis w/ reflexes EDMS 05/12 03:22 Order name: Troponin High Sensitivity EDMS 05/12 03:22 Order name: Troponin High Sensitivity EDMS 05/12 03:22 Order name: Troponin High Sensitivity EDMS 05/12 03:22 Order name: Troponin High Sensitivity EDMS 05/12 01:20 Order name: XRAY Chest (1 view) rn 05/12 01:20 Order name: CT Chest For PE Angio rn 05/12 01:20 Order name: EKG; Complete Time: 01:20 rn 05/12 01:20 Order name: Cardiac monitoring; Complete Time: : rn 05/12 01:20 Order name: EKG - Nurse/Tech; Complete Time: : rn 05/12 01:20 Order name: IV Saline Lock; Complete Time: : rn 05/12 01:20 Order name: Labs collected and sent; Complete Time: : rn 05/12 01:20 Order name: O2 Per Protocol; Complete Time: : rn 05/12 01:20 Order name: O2 Sat Monitoring; Complete Time: : rn EC:28 Rate is 60 beats/min. Rhythm is regular. QRS [place] is Normal. IN interval is normal. QRS rn interval is normal. QT interval is normal. No Q waves. T waves are Normal. No ST changes noted. Clinical impression: NSR w/ Non-specific ST/T Changes. Interpreted by me. Reviewed by me. Administered Medications: 02:27 Drug: Aspirin PO Chewable Tablet 324 mg PO once; 81 mg tablets x 4 Route: PO; km8 03:09 Follow up: Response: No adverse reaction [facility] 03:19 Drug: morphine IVP or IV 4 mg IVP once over 4 mins Route: IVP; Infused Over: 4 mins; tm6 Site: right forearm; 03:19 Drug: Ondansetron IVP 4 mg IVP once; over 2 minutes Route: IVP; Site: right forearm; tm6 Disposition Summary: 05/12/23 02:17 Hospitalization Ordered Notes: Hospitalization Status: Observation rn Provider: Walt Bhatti [facility] Condition: Stable rn Problem: new rn Symptoms: have improved rn Bed/Room Type: Standard rn Room Assignment: 218(05/12/23 04:00) cg Diagnosis - Chest pain, unspecified rn Forms: - Medication Reconciliation Form rn - SBAR form rn - Leadership Thank You Letter rn Signatures: Dispatcher [employer] Rohith Sims MD MD rn Garcia, Cindy, RN RN cg Bryson, James RN GAGE lozano Jesenia Corcoran RN RN 8 Jorge Lee RN RN tm6 Corrections: (The following items were deleted from the chart) 04:00 02:17 rn cg
--- NOTE | 2023-05-12 02:18 | ER ---
Nurse's Notes [facility] Name: Niesha Lyon Age: 53 yrs Sex: Female : 1970 Arrival Date: 05/12/2023 Time: 01:06 Bed 7 Private MD: Diagnosis: Chest pain, unspecified Presentation: 05/12 01:13 Chief complaint: Patient states: I am having chest pain that started tonight. It is in jb4 the middle of my chest and goes to my upper back between my shoulders. My blood pressure has been steadily increasing over the past week. I have had a headache since the blood pressure started increasing and the headache has been getting worse. Coronavirus screen: At this time, the client does not indicate any symptoms associated with coronavirus-19. Ebola Screen: No symptoms or risks identified at this time. Initial Sepsis Screen: Does the patient meet any 2 criteria? No. Patient's initial sepsis screen is negative. Does the patient have a suspected source of infection? No. Patient's initial sepsis screen is negative. Risk Assessment: Do you want to hurt yourself or someone else? Patient reports no desire to harm self or others. Onset of symptoms was May 12, 2023. Transition of care: patient was not received from another setting of care. 01:13 Method Of Arrival: Wheelchair jb4 01:13 Acuity: CHRISTIAN 2 jb4 Historical: - Allergies: 01:16 Amoxicillin; jb4 01:16 Cephalexin Monohydrate; jb4 01:16 Azithromycin; jb4 01:16 Keflex; jb4 01:16 Latex; jb4 01:16 Oral steroids; jb4 - PMHx: 01:16 Hypercholesterolemia; Hypertensive disorder; Myocardial infarction; back problems; jb4 - PSHx: 01:16 back; cardiac stents; uterine ablation; jb4 - Immunization history:: Adult Immunizations up to date. - Social history:: Smoking status: Patient denies any tobacco usage or history of. - Family history:: not pertinent. - Hospitalizations: : No recent hospitalization is reported. Screenin:23 [facility] ED Fall Risk Assessment (Adult) History of falling in the last 3 months, km8 including since admission No falls in past 3 months (0 pts) Confusion or Disorientation No (0 pts) Intoxicated or Sedated No (0 pts) Impaired Gait No (0 pts) Mobility Assist Device Used No (0 pt) Altered Elimination No (0 pt) Score/Fall Risk Level 0 - 2 = Low Risk Oriented to surroundings, Maintained a safe environment, Educated pt \T\ family on fall prevention, incl call for assistance when getting out of bed, Assessed \T\ reinforced patient's understanding of fall precautions. Abuse screen: Denies threats or abuse. Denies injuries from another. Nutritional screening: No deficits noted. Tuberculosis screening: No symptoms or risk factors identified. Assessment: 01:21 General: Appears in no apparent distress. comfortable, Behavior is calm, cooperative, km8 appropriate for age. Pain: Complains of pain in chest Pain radiates to back Pain currently is 6 out of 10 on a pain scale. Neuro: Level of Consciousness is awake, alert, obeys commands, Oriented to person, place, time, situation. Cardiovascular: Capillary refill < 3 seconds Patient's skin is warm and dry. Rhythm is regular Chest pain is described as mild, radiates back began 1 hour prior to arrival episodes are intermittent. Respiratory: Airway is patent Respiratory effort is even, unlabored, Respiratory pattern is regular, symmetrical. GI: No signs and/or symptoms were reported involving the gastrointestinal system. : No signs and/or symptoms were reported regarding the genitourinary system. EENT: No signs and/or symptoms were reported regarding the EENT system. Derm: No signs and/or symptoms reported regarding the dermatologic system. Skin is intact, is healthy with good turgor, Skin is dry, Skin is pink, warm \T\ dry. normal, Skin temperature is warm. Musculoskeletal: No signs and/or symptoms reported regarding the musculoskeletal system. Range of motion: intact in all extremities. 02:05 Reassessment: Patient appears in no apparent distress at this time. No changes from tm6 previously documented assessment. Patient and/or family updated on plan of care and expected duration. Pain level reassessed. Patient is alert, oriented x 3, equal unlabored respirations, skin warm/dry/pink. 02:59 Reassessment: Patient appears in no apparent distress at this time. No changes from tm6 previously documented assessment. Patient and/or family updated on plan of care and expected duration. Pain level reassessed. Patient is alert, oriented x 3, equal unlabored respirations, skin warm/dry/pink. 04:05 Reassessment: report attempted. tm6 Vital Signs: 01:13 BP 201 / 101; Pulse 95; Resp 18; Temp 98.1(O); Pulse Ox 95% on R/A; Weight 122.47 kg; jb4 Height 5 ft. 4 in. ; 02:05 BP 187 / 86; Pulse 54; Pulse Ox 95% on R/A; tm6 02:59 BP 169 / 114; Pulse 54; Pulse Ox 96% on R/A; tm6 01:13 Body Mass Index 46.34 (122.47 kg, 162.56 cm) jb4 [place] Coma Score: 01:23 Eye Response: spontaneous(4). Motor Response: obeys commands(6). Verbal Response: km8 oriented(5). Total: 15. ED Course: 01:09 Patient arrived in ED. km8 01:12 Rohith Austin MD is Attending Physician. rn 01:16 Triage completed. jb4 01:16 Arm band placed on right wrist. jb4 01:21 Jesenia Corcoran RN is Primary Nurse. km8 01:21 Inserted saline lock: 22 gauge in right antecubital area, using aseptic technique. km8 Blood collected. 01:23 Patient has correct armband on for positive identification. Placed in gown. Bed in low km8 position. Call light in reach. Side rails up X2. Client placed on continuous cardiac and pulse oximetry monitoring. NIBP monitoring applied. 01:23 No provider procedures requiring assistance completed. Patient maintains SpO2 km8 saturation greater than 95% on room air. 01:45 XRAY Chest (1 view) In Process Unspecified. EDMS 02:17 Walt Bhatti MD is Hospitalizing Provider. rn 02:22 CT Chest For PE Angio In Process Unspecified. EDMS 04:17 Provided Education on: need for admit. tm6 04:17 Patient admitted, IV remains in place. tm6 Administered Medications: 02:27 Drug: Aspirin PO Chewable Tablet 324 mg PO once; 81 mg tablets x 4 Route: PO; km8 03:09 Follow up: Response: No adverse reaction km8 03:19 Drug: Ondansetron IVP 4 mg IVP once; over 2 minutes Route: IVP; Site: right forearm; tm6 03:19 Drug: morphine IVP or IV 4 mg IVP once over 4 mins Route: IVP; Infused Over: 4 mins; tm6 Site: right forearm; Medication: 01:23 VIS not applicable for this client. km8 Outcome: 02:17 Decision to Hospitalize by Provider. rn 04:16 Admitted to Med/surg accompanied by tech, room 218, with chart, Report called to tm6 Rossi ALMONTE 04:16 Condition: stable 04:16 Instructed on the need for admit, 04:20 Patient left the ED. tm6 Signatures: Dispatcher [employer] EDMS Rohith Austin MD MD rn Bryson, James, RN RN jb4 Jesenia Corcoran RN RN km8 Jorge Lee RN RN tm6 Corrections: (The following items were deleted from the chart) 01:27 01:21 Pain: Complains of pain in chest Pain currently is 6 out of 10 on a pain scale. km8 km8 01:27 01:21 Cardiovascular: Capillary refill < 3 seconds Patient's skin is warm and dry. km8 Rhythm is regular Chest pain is described as mild, began 1 hour prior to arrival episodes are intermittent km8
[2023-05-12] MEDS ORDERED: ASPIRIN 81 MG CHEWABLE TABLET ONE (02:23)
[2023-05-12] MEDS: ASPIRIN 81 MG CHEWABLE TABLET ONE (02:24)
[2023-05-12] MEDS ORDERED: ONDANSETRON 4 MG/2 ML VIAL ONE (03:12)
[2023-05-12] MEDS ORDERED: MORPHINE 4 MG/ML SYR ONE (03:13)
--- NOTE | 2023-05-12 03:15 | P.HP ---
Certification for Inpatient Patient admitted to: Observation With expected LOS: <2 Midnights Practitioner: I am a practitioner with admitting privileges, knowledge of patient current condition, hospital course, and medical plan of care. Services: Services provided to patient in accordance with Admission requirements found in Title 42 Section 412.3 of the Code of Federal Regulations Patient History Date of Service: 05/12/23 Reason for admission: Chest pain. History of Present Illness: 51-year-old female patient was medical history significant for anxiety disorder, hypertension, hyperlipidemia, who came to the ED with complaint of chest pain. She also has a history of coronary artery disease and LAD stent placement x 2. She complained of chest pain radiating to the back from the mid chest region. There is also radiation into the jaw area/head. No dizzy spells, nausea, vomiting, headache reported. Initial troponin in the ER was not concerning for ACS however because of her prior history she was admitted for chest pain workup. CTA of the chest to rule out dissection pending of full report at time of dictation. Allergies adhesive tape Allergy (Verified 06/04/17 13:52) Itching/Hives/Rash amoxicillin Allergy (Verified 05/12/23 04:31) Rash cephalexin monohydrate [From Keflex] Allergy (Verified 06/04/17 13:52) Anaphylaxis Latex, Natural Rubber Allergy (Verified 05/12/23 04:31) Itching/Hives/Rash topiramate [From Topamax] Allergy (Verified 06/04/17 13:52) Rash azithromycin Allergy (Uncoded 06/04/17 13:52) Unknown Home Medications: Aspirin 81 mg PO DAILY #30 tab.chew 07/21/15 Diphenhydramine HCl [Benadryl Allergy] 50 mg PO BEDTIME 09/21/16 Esomeprazole Magnesium [Nexium 24Hr] 20 mg PO DAILY 09/21/16 Losartan Potassium [Cozaar] 100 mg PO DAILY 09/21/16 Propranolol HCl [Propranolol HCl ER] 60 mg PO BID 09/21/16 - Past Medical/Surgical History Diabetic: No -: Hypertension -: Hyperlipidemia -: CAD with previous stent -: Irritable bowel syndrome -: GERD -: -2009 -: Stomach ulcers -: Tobacco abuse -: Left oophorectomy secondary to a large ovarian cyst -: -: Tonsillectomy -: Cardiac stent Psychosocial/ Personal History: Patient is . She has 3 children of her own. 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 - Family History Mother -: Heart disease, Hypertension, Stroke Father -: Heart disease, Hypertension, Stroke - Social History Alcohol use: No CD- Drugs: No Caffeine use: Yes Review of Systems General: Unremarkable Eyes: Unremarkable ENT: Unremarkable Respiratory: Unremarkable Cardiovascular: Chest Pain Gastrointestinal: Unremarkable Genitourinary: Unremarkable Musculoskeletal: Unremarkable Integumentary: Unremarkable Neurological: Unremarkable Lymphatics: Unremarkable Physical Examination - Physical Exam General: Alert, Oriented x3 HEENT: Atraumatic Neck: Supple Respiratory: Normal air movement Cardiovascular: Regular rate/rhythm, Normal S1 S2 Gastrointestinal: Soft and benign Musculoskeletal: No swelling Neurological: Normal speech, Normal strength at 5/5 x4 extr - Studies Laboratory Data (last 24 hrs) 05/12/23 05/12/23 01:20 01:20 WBC 7.80 Hgb 12.5 Hct 38.3 Plt Count 271 Sodium 138 Potassium 3.9 BUN 14 Creatinine 0.98 Glucose 120 H Assessment and Plan - Plan Chest pain: Concerning for ACS. She has a history of coronary artery disease. Will have on telemetry, trend troponin and obtain lipid panel for assessment. Continue statin therapy and aspirin therapy. Cardiology consulted for management recommendation. CTA of the chest to rule out dissection ordered. Hypertension: Monitor vital signs per unit protocol and continue outpatient antihypertensive medication. Hyperlipidemia: Will obtain lipid panel to assess adequacy of therapy and continue statin therapy. Restless leg syndrome: Will continue outpatient medication. Prophylaxis: Lovenox for DVT prophylaxis. CODE STATUS: Full code Disposition: We will workup her chest pain and she will be discharged once plan of care is finalized. - Advance Directives Does patient have a Living Will: No Does patient have a Durable POA for Healthcare: No
[2023-05-12] MEDS: ACETAMINOPHEN 325 MG TABLET PO PRN (04:59)
[2023-05-12 05:46] LABS: Urine Bacteria None Seen /HPF (<20); Urine WBC Clump Rare /HPF (None Seen)
[2023-05-12 05:48] VITALS: BMI 44.0
[2023-05-12 05:51] LABS: Urine Bilirubin NEGATIVE (Negative); Urine Blood Negative (Negative); Urine Clarity Clear (Clear); Urine Color Light-Yellow (Yellow); Urine Glucose NEGATIVE (Negative); Urine Protein 2+ (Negative); Urine Urobilinogen Normal (Normal); Urine pH 6.5 (5.0-7.0)
[2023-05-12] MEDS: PANTOPRAZOLE 40MG TABLET PO SCH (06:30)
[2023-05-12] MEDS ORDERED: INFLUENZA VACCINE (for 6+ mo) 0.5 ML DOSE IMVAC ONE (08:00)
[2023-05-12] MEDS: ENOXAPARIN 40 MG/0.4 ML SQ SCH (08:27)
[2023-05-12] MEDS: LOSARTAN POTASSIUM 50 MG TABLET PO SCH (08:28)
[2023-05-12] MEDS: ASPIRIN 81 MG CHEWABLE TABLET PO SCH (08:28)
[2023-05-12] MEDS: CLOPIDOGREL 75 MG TABLET PO SCH (08:28)
[2023-05-12] MEDS ORDERED: DIPHENHYDRAMINE 25 MG TAB/CAP PO PRN (09:34)
--- NOTE | 2023-05-12 09:46 | P.PN ---
Date of Service: 05/12/23 Subjective: Denies further episodes of chest pain overnight No acute events overnight ROS: 10 point ROS as noted above, otherwise negative Physical exam GEN: Alert, oriented, NAD HEENT: Normal conjunctiva, sclera anicteric CV: Regular rate and rhythm, no edema Pulm: Nonlabored respirations on room air ABD: Soft, nontender, nondistended MSK: No joint tenderness Integumentary: No rashes Neuro: Normal speech, normal affect Vitals reviewed Problem List Chest pain rule out ACShistory of CAD Hypertension Hyperlipidemia Essential tremor Insomnia Plan Chest pain rule out ACShistory of CAD First 2 troponins negative, continue to trend Continue to monitor on telemetry Last heart catheterization June 2021 was 2 stents placed Likely had STEMI at that time-reports LAD stent Compliant with aspirin/Plavix Continue aspirin, Plavix, metoprolol Cardiology consult in place Patient also reports echocardiogram and stress test about 6 months ago which were normal Hypertension Reports blood pressures have been elevated the last 1 week Usually 130s systolic, now in the 200s Some improvement overnight, continue home medications Hyperlipidemia Continue statin Essential tremor Continue propranolol Insomnia Continue trazodone VTE: lovenox Code: Full Dispo: 24-48 Time Spent Managing Pts Care (In Minutes): 35
[2023-05-12] MEDS: METOPROLOL TAR 25 MG TAB PO SCH (11:38)
[2023-05-12] MEDS: ISOSORBIDE MONO SR 30 MG TAB PO SCH (11:39)
[2023-05-12] MEDS: PROPRANOLOL HCL 60 MG SA CAP PO SCH (11:39)
[2023-05-12] MEDS: TRAMADOL HCL 50 MG TAB PO ONE (20:07)
[2023-05-12] MEDS ORDERED: ATORVASTATIN 40 MG TAB PO SCH (21:00)
[2023-05-12] MEDS: TRAZODONE 150 MG TAB PO SCH (21:00)
[2023-05-13] MEDS: PANTOPRAZOLE 40MG TABLET PO SCH (07:30)
[2023-05-13] MEDS: HYDRALAZINE HCL 20 MG/ML VIAL ONE (07:34)
[2023-05-13] MEDS: HYDRALAZINE HCL 20 MG/ML VIAL IV ONE (07:41)
[2023-05-13] MEDS ORDERED: LIDOCAINE 1% 20 ML MDV ONE (07:54)
[2023-05-13] MEDS ORDERED: HEPA 1000U/500MLS 2,000 UNIT/1,000 ML BAG IV ONE (07:54)
[2023-05-13] MEDS: HYDROCODONE/APAP 7.5/325 MG TAB PO ONE (07:58)
[2023-05-13] MEDS: ONDANSETRON 4 MG/2 ML VIAL IV PRN (08:43)
[2023-05-13] MEDS ORDERED: HOME MED 1 EA UNK (Esomeprazole Magnesium [Nexium 24hr] 20 MG Tablet.Dr) PO SCH (09:00)
[2023-05-13] MEDS: ROSUVASTATIN 10 MG TAB PO SCH (09:00)
[2023-05-13] MEDS: NA CHLORIDE 0.9% 500 ML ONE (09:29)
[2023-05-13] MEDS ORDERED: VERAPAMIL HCL 10 MG/4 ML VIAL IV ONE (10:24)
[2023-05-13] MEDS ORDERED: FENTANYL CITR 100 MCG/2 ML ONE (10:24)
[2023-05-13] MEDS ORDERED: ATROPINE SULF 1 MG/10 ML SYR IV ONE (10:25)
[2023-05-13] MEDS ORDERED: TICAGRELOR 90 MG TABLET PO ONE (10:25)
[2023-05-13] MEDS ORDERED: HEPARIN 10,000 UNIT/10 ML VIAL IV ONE (10:25)
[2023-05-13] MEDS ORDERED: HEPARIN 5000 UNIT/ML 1 ML VIAL ONE (10:25)
[2023-05-13] MEDS ORDERED: CLOPIDOGREL 75 MG TABLET ONE (10:25)
[2023-05-13] MEDS ORDERED: MIDAZOLAM HCL 2 MG/2 ML INJ ONE (10:25)
[2023-05-13] MEDS ORDERED: ASPIRIN 325 MG TAB ONE (10:26)
--- NOTE | 2023-05-13 11:44 | RAD REPORT ---
EXAM DESCRIPTION: CT - Chest For Pe Angio - 05/12/2023 7:16 am CLINICAL HISTORY: Chest pain, sob COMPARISON: None. TECHNIQUE: CT CHEST ANGIOGRAPHY WITH IV CONTRAST on 05/12/2023 1:20 AM MANAGER R D. MIPS reconstructions were generated. This exam was performed according to our departmental dose-optimization program, which includes autom ated exposure control, adjustment of the mA and/or kV according to patient size and/or use of iterati ve reconstruction technique. MIP images were generated. FINDINGS: Thoracic aorta is normal in course and caliber without aneurysm or dissection. Pulmonary a rteries are adequately opacified without acute or chronic filling defects. The heart is borderline in size. There is no pericardial effusion. Intrathoracic lymph nodes are not enlarged. There is no pleural effusion, pleural thickening or pneumothorax. Central airways are patent. Lungs a re clear with no consolidation, mass or interstitial lung disease. There are no acute abnormalities within the limited images of the upper abdomen. There are no acute osseous findings. No suspicious bony lesions. IMPRESSION: No aortic dissection or aneurysm. No pulmonary embolus. No pneumonia. Electronically signed by: Charbel Rojas MD 05/12/2023 02:55 AM MANAGER R D Due to temporary technical issues with the PACS/Fluency reporting system, reports are being signed by the in house radiologist without review as a courtesy to ensure prompt reporting. The interpreting r adiologist is fully responsible for the content of the report.
--- NOTE | 2023-05-13 11:46 | RAD REPORT ---
EXAM DESCRIPTION: RAD - Chest Single View - 05/12/2023 1:43 am CLINICAL HISTORY: CHEST PAIN COMPARISON: None TECHNIQUE: Single AP view of the chest. FINDINGS: Lung volumes adequate. Cardiac silhouette is normal in size. No pneumothorax. No large pleural effusion. No focal consolidation. No acute bony finding. IMPRESSION: No evidence of acute cardiopulmonary disease. Electronically signed by: Sandy Dumont MD 05/12/2023 02:01 AM COMPOSITOR APPRENTICE Due to temporary technical issues with the PACS/Fluency reporting system, reports are being signed by the in house radiologist without review as a courtesy to ensure prompt reporting. The interpreting r adiologist is fully responsible for the content of the report.
[2023-05-13] MEDS ORDERED: REGADENOSON 0.4 MG/5 ML SYR IV ONE (11:48)
[2023-05-13] MEDS ORDERED: ONDANSETRON 4 MG/2 ML VIAL ONE (12:07)
--- NOTE | 2023-05-13 13:08 | CON ---
Date of Consultation: 05/13/2023 Reason For Consultation: Chest pain. History Of Present Illness: This is 53-year-old female, history of coronary artery disease, status p ost PCI of the LAD and RCA in the past, history of hypertension, dyslipidemia, presented to the emerg ency room with chest pain, pressure like, retrosternal, radiates to the back, at rest and increases w ith activity. She had a stress test 5-6 months ago that was normal, but chest pain started recently and it is more frequent and getting worse. When evaluation in the emergency room, her blood pressure was high. Cardiac enzymes have been negative, but the chest pain on and off continues to happen sin ce hospitalization. Past Medical History: As outlined above in the HPI. Medications: Refer reconciliation sheet for detailed list. Allergies: AMOXICILLIN, KEFLEX, AND LATEX. TOPAMAX, AZITHROMYCIN. Family History: No premature coronary artery disease or cancer. Social History: She does not smoke or drink. Does not use any drugs. Review of Systems: All systems reviewed are negative except mentioned in HPI. Physical Examination: Vital Signs: Reviewed. Head and Neck: Pupils are equal, reactive to light. Intact eye movements. No JVD. No cervical lym phadenopathy. Neck: Supple. Thyroid is not enlarged. Lungs: Clear to auscultation bilaterally. No rhonchi, rales, or crackles. No accessory muscle use. Heart: Regular rate and rhythm. No extra sounds. Abdomen: Soft, nontender. Bowel sounds positive. No organomegaly. No masses or hernia. No rigidi ty or rebound. Extremities: No edema, clubbing, cyanosis. Intact pulses. Skin: No rashes. Neurologic: Alert, awake, oriented x3. No acute focal deficits appreciated. Investigations: Labs reviewed. Assessment/recommendation: 1.Chest pain. No coronary artery disease. Pain is frequent, exertion related and pressure-like, al l typical features suggestive of unstable angina. Keep n.p.o., plan for coronary angiogram, then rec ommendations to follow accordingly. In the interim, continue baby aspirin and Plavix. 2.Hypertension. Blood pressure is not well controlled. Resume home medications. Will adjust medic ations further for systolic blood pressure to be less than 140. 3.Dyslipidemia. Continue statin. SR/MODL Voice ID: [id number] Report ID: [id number]
--- NOTE | 2023-05-13 15:01 | EKG ---
Test Date: 2023-05-12 Test Time: 01:16:45 Wood Casket Assembler: ANYA MEASUREMENT RESULTS: Intervals: Rate: 60 VA: 190 QRSD: 80 QT: 442 QTc: 442 Devine: P: 60 VA: 190 QRS: 51 T: 35 INTERPRETIVE STATEMENTS: Normal sinus rhythm Septal infarct, age undetermined Abnormal ECG Compared to ECG 03/15/2023 22:20:55 No significant changes Electronically Signed On 05-13-23 14:58:34 TELESCOPE REPAIRER by New Lopez
[2023-05-13] MEDS: ONDANSETRON 4 MG/2 ML VIAL IV ONE (16:51)
--- NOTE | 2023-05-13 17:03 | P.PN ---
Date of Service: 05/13/23 Subjective: C/O RAMIREZ/nausea and vomiting after cath ROS: 10 point ROS as noted above, otherwise negative Physical exam GEN: Alert, oriented, NAD HEENT: Normal conjunctiva, sclera anicteric CV: Regular rate and rhythm, no edema Pulm: Nonlabored respirations on room air ABD: Soft, nontender, nondistended MSK: No joint tenderness Integumentary: No rashes Neuro: Normal speech, normal affect Vitals reviewed Problem List Chest pain rule out ACShistory of CAD Headache/nausea/vomiting Hypertension Hyperlipidemia Essential tremor Insomnia Plan Chest pain rule out ACShistory of CAD Heart cath performed 05/13/2023 without need for intervention Last heart catheterization June 2021 was 2 stents placed Likely had STEMI at that time-reports LAD stent Continue aspirin, Plavix, metoprolol Observe overnight given persistent hypertension, nausea, vomiting, severe headache Headache/nausea/vomiting Obtain CT scan of head As needed medications for headache/nausea and vomiting Will observe overnight plan for DC in the morning if patient is feeling better/blood pressure improved Hypertension Reports blood pressures have been elevated the last 1 week Usually 130s systolic, now in the 200s Some improvement overnight, continue home medications Hyperlipidemia Continue statin Essential tremor Continue propranolol Insomnia Continue trazodone VTE: lovenox Code: Full Dispo: 24 hours Time Spent Managing Pts Care (In Minutes): 35
[2023-05-13] MEDS: ACETAMIN/CAFFEINE/BUTALB TAB PO ONE (17:59)
--- NOTE | 2023-05-13 19:22 | RAD REPORT ---
EXAM DESCRIPTION: CT - Head Brain Wo Cont - 05/13/2023 5:15 pm CLINICAL HISTORY: Severe headache, htn COMPARISON: HEAD BRAIN W O CONTRAST dated 04/13/2015 TECHNIQUE: Noncontrast head CT images were obtained without IV contrast. Multiplanar reformats were generated and reviewed. All CT scans are performed using dose optimization technique as appropriate and may include automated exposure control or mA/KV adjustment according to patient size. FINDINGS: No intracranial hemorrhage, mass, or edema. Midline structures are unremarkable. Normal ventricular caliber for age. Xiao-white matter differentiation is preserved, without evidence of acute infarct. No abnormal extra- axial fluid collections. Mastoid air cells and visualized portions of the paranasal sinuses are clear. No acute bony findings. IMPRESSION: No evidence of an acute intracranial process.
--- NOTE | 2023-05-13 19:23 | OP ---
Date of Procedure: 05/13/2023 Surgeon: TIRSO CONDE Procedures Performed: 1.Selective coronary angiogram. 2.Left heart catheterization. 3.FFR of moderate distal RCA stenosis and it was 0.91, which was not significant. Indication: Unstable angina. Access: Right radial artery 6-Syrian closed with TR band. Complications: None. Bleeding: Less than 20 mL. Anesthesia: Total sedation time was 50 minutes, used fentanyl, Versed. Description Of Procedure: After risks, benefits, and alternatives were explained, the patient agreed to the procedure and signed informed consent. The patient was brought into cardiac catheterization laboratory, prepped and draped in usual sterile fashion. Then, I accessed right radial artery using pediatric micropuncture with a 6-Syrian Slender sheath and took 5-Syrian tiger 4 catheter over J-wire into the aortic root and crossed aortic valve over the wire, measured the LVEDP. Pullback did not r ecord any gradient. Then engaged left main, took standard views and then the RCA and took standard v iews. Then, we gave systemic heparin to assure ACT level above 250 throughout the procedure and took an FFR wire into the aortic root. Pressures were equalized and then pressure wire was advanced into the RCA bypassing the stenosis and then did FFR using Lexiscan, value was 0.91 and then pulling the wire back, there was no drift. Final angiogram after taking the wire out was satisfactory without co mplication. Then, removed the catheter and the sheath and placed TR band with good hemostasis. Findings: 1.Left main is large and normal. 2.LAD; proximal segment is normal. There is a long [id number] LAD stent widely patent. Normal d iagonal branches. 3.There is a ramus intermedius moderate-size with diffuse proximal 50% stenosis. 4.Left circumflex; it is large and codominant. After the OM takeoff, there is a long 40% stenosis. OM is normal. 5.RCA is a codominant circulation with proximal stent that is widely patent and then the distal RCA, there is 50% stenosis before the bifurcation, FFR was negative at 0.91. 6.LVEDP elevated at 21 mmHg. Conclusions: 1.Moderate coronary artery disease with patent stents. 2.Elevated LVEDP. Recommendation: Medical management and good blood pressure control and the patient will benefit from diuretics due to elevated LVEDP. SR/MODL Voice ID: [id number] Report ID: [id number]
[2023-05-13] MEDS: KETOROLAC 30 MG/ML INJ IV ONE (21:00)
[2023-05-14 02:23] VITALS: O2SAT 90
[2023-05-14] MEDS: ACETAMIN/CAFFEINE/BUTALB TAB PO ONE (06:04)
[2023-05-14 08:32] VITALS: BP 125/68; TEMP 97.2
--- NOTE | 2023-05-14 13:25 | ECHO ---
HEIGHT: 5 ft 4 in WEIGHT: 256 lb 9.6 oz DATE OF STUDY: 05/14/[address]: Walt Bhatti MD 2-DIMENSIONAL: YES M.MODE: YES DOPPLER: YES COLOR FLOW: YES TDS: PORTABLE: YES DEFINITY: BUBBLE STUDY: DIAGNOSIS: CHEST PAIN EVALUATION CARDIAC HISTORY: CATHERIZATION: YES SURGERY: NO PROSTHETIC VALVE: NO PACEMAKER: NO MEASUREMENTS (cm) DIASTOLIC (NORMALS) SYSTOLIC (NORMALS) IVSd 1.3 (0.6-1.2) LA Diam 3.6 (1.9-4.0) LVEF 55% LVIDd 4.9 (3.5-5.7) LVIDs 3.5 (2.0-3.5) %FS 29% LVPWd 1.2 (0.6-1.2) Ao Diam 2.4 (2.0-3.7) 2 DIMENSIONAL ASSESSMENT: RIGHT ATRIUM: NORMAL LEFT ATRIUM: NORMAL RIGHT VENTRICLE: NORMAL LEFT VENTRICLE: NORMAL TRICUSPID VALVE: MILD TRICUSPID REGURGITATION MITRAL VALVE: NORMAL PULMONIC VALVE: NORMAL AORTIC VALVE: NORMAL PERICARDIAL EFFUSION: NONE AORTIC ROOT: NORMAL LEFT VENTRICULAR WALL MOTION: NORMAL DOPPLER/COLOR FLOW: MILD TRICUSPID REGURGITATION COMMENTS: 1. NORMAL LEFT VENTRICULAR EJECTION FRACTION 55-60% 2. NORMAL WALL MOTION 3. MILD TRICUSPID REGURGITATION TECHNOLOGIST: ABEL FREEDMAN
--- NOTE | 2023-05-14 17:24 | PN ---
Date of Progress Note: 05/14/2023 Subjective: Seen by bedside. No complication post heart catheterization. Access site looks normal. No chest pain. Review of Systems: No chest pain, shortness of breath, orthopnea, cough. No nausea, vomiting, diarrhea. All other syst ems reviewed are negative. Objective: Vital Signs: Reviewed. Head and Neck: Pupils are equal, reactive to light. Intact eye movements. No JVD. No cervical lym phadenopathy. Neck is supple. Thyroid is not enlarged. Lungs: Clear to auscultation bilaterally. No rhonchi, rales, or crackles. No accessory muscle use. Heart: Regular rate and rhythm. No extra sounds. Abdomen: Soft, nontender. Bowel sounds positive. No organomegaly. No masses or hernia. No rigidi ty or rebound. Extremities: No edema, clubbing, or cyanosis. Intact pulses. Skin: No rashes. Neurologic: Alert, awake and oriented x3. No acute focal deficits appreciated. Investigations: Labs reviewed. Assessment/recommendation: 1.Chest pain, status post coronary angiogram, heart is well-vascularized. This is noncardiac pain. The patient was reassured. Continue home medication. 2.Hypertension. Blood pressure is controlled. Continue current management. 3.Dyslipidemia. Continue statin. Plan for followup in 4 weeks post discharge. /ANGELIA Voice ID: [id number] Report ID: [id number]
--- NOTE | 2023-05-14 18:33 | P.DS ---
Admission Date: 05/12/23 Discharge Date: 05/14/23 Disposition: ROUTINE DISCHARGE Discharge Condition: GOOD Reason for Admission: Chest pain. Brief History of Present Illness: 51-year-old female patient was medical history significant for anxiety disorder, hypertension, hyperlipidemia, came to the ED with complaint of chest pain. She also has a history of coronary artery disease and LAD stent placement x 2. She complained of chest pain radiating to the back from the mid chest region, jaw area/head. No dizzy spells, nausea, vomiting, headache reported. Initial troponin in the ER was not concerning for ACS however because of her prior history she was admitted for chest pain workup. CTA of the chest done in the ED did not show any dissection or pulm embolism. Hospital Course: Patient was hospitalized and the following medical problems addressed: Diagnosis Chest pain rule out ACShistory of CAD Headache/nausea/vomiting Hypertension Hyperlipidemia Essential tremor Insomnia Plan Chest pain/History of CAD Heart cath performed by Dr. Lopez on 05/13/2023 without need for intervention Last heart catheterization June 2021 was 2 stents placed Medical management recommended by cardiology Dr. Lopez Continued aspirin, Plavix, metoprolol and Crestor. LDL below target. Migraine CT head negative Patient reports history of migraine headaches. She was treated with Fioricet. Case discussed with neurology Dr. Rosado who recommended follow-up with him in the office for migraine treatment. Accelerated hypertension Patient is on multiple antihypertensives-propranolol, metoprolol and losartan which were continued during the hospital stay. She needed hydralazine for BP spikes. Blood pressure readings improved today Patient states that her blood pressure usually well-controlled with these medications at home. No changes made in her home antihypertensives Hyperlipidemia Continued Crestor Essential tremor Continued propranolol Insomnia Continued trazodone Vital Signs/Physical Exam: Temp Pulse Resp BP Pulse Ox 97.2 F 66 16 125/68 92 05/14/23 08:00 05/14/23 08:18 05/14/23 08:00 05/14/23 08:18 05/14/23 08:00 General: Alert, In no apparent distress, Oriented x3 HEENT: Mucous membr. moist/pink Neck: Supple, JVD not distended Respiratory: Clear to auscultation bilaterally, Normal air movement Cardiovascular: No edema, Regular rate/rhythm, Normal S1 S2 Gastrointestinal: Normal bowel sounds, Soft and benign, Non-distended, No tenderness Musculoskeletal: No swelling Integumentary: No rashes, No cyanosis Neurological: Normal strength at 5/5 x4 extr Laboratory Data at Discharge: WBC 7.80 thou/uL (4.3-10.9) 05/12/23 01:20 Hgb 12.5 g/dL (12.0-15.0) 05/12/23 01:20 Hct 38.3 % (36.0-45.0) 05/12/23 01:20 Plt Count 271 thou/uL (152-406) 05/12/23 01:20 Sodium 138 mEq/L (136-145) 05/12/23 01:20 Potassium 3.9 mEq/L (3.5-5.1) 05/12/23 01:20 BUN 14 mg/dL (7-18) 05/12/23 01:20 Creatinine 0.98 mg/dL (0.55-1.02) 05/12/23 01:20 Glucose 120 mg/dL (74-106) H 05/12/23 01:20 Triglycerides 117 mg/dL (<150) 05/12/23 07:47 Cholesterol 127 mg/dL (<200) 05/12/23 07:47 HDL Cholesterol 47 mg/dL (40-60) 05/12/23 07:47 Cholesterol/HDL Ratio 2.70 05/12/23 07:47 Home Medications: Aspirin 81 mg PO DAILY #30 tab.chew 07/21/15 Diphenhydramine HCl [Benadryl Allergy] 50 mg PO BEDTIME 09/21/16 Esomeprazole Magnesium [Nexium 24Hr] 20 mg PO DAILY 09/21/16 Losartan Potassium [Cozaar] 100 mg PO DAILY 09/21/16 Propranolol HCl [Propranolol HCl ER] 120 mg PO DAILY 09/21/16 Clopidogrel Bisulfate [Plavix*] 75 mg PO DAILY 05/12/23 Isosorbide Mononitrate [Isosorbide Mononitrate ER] 30 mg PO DAILY 05/12/23 Metoprolol Tartrate [Lopressor*] 25 mg PO BID 05/12/23 Rosuvastatin [Crestor*] 20 mg PO DAILY 05/12/23 Trazodone [Desyrel*] 300 mg PO BEDTIME 05/12/23 Furosemide [Lasix] 20 mg PO DAILY #30 tab 05/14/23 New Medications: Furosemide [Lasix] 20 mg PO DAILY #30 tab Physician Discharge Instructions: Please stop by Dr. Rosado's office around lunch time for Migraine medications. Diet: AHA Activity: Ad nemo Followup: Anupam Rosado MD [ASSOCIATE-ACTIVE - CAN ADMIT] - (Regarding Migraine and essential tremors. Please call for appointment. ) LornaOTLornaOT [Primary Care Provider] - 1-2 Weeks New Lopez MD [ACTIVE - CAN ADMIT] - 1-2 Weeks Time spent managing pt's care (in minutes): 29
== END 2023-05-14 10:54 | disposition home or self-care (01) ==
LOC: ER 01:06 → ERHOLD 03:15 → 2ND 04:05
PROVIDERS: ADMIT Internal Medicine Nephrology; ATTEND Internal Medicine
DX: I25.110 Atherosclerotic heart disease of native coronary artery with unstable angina pectoris (principal); I10 Essential (primary) hypertension; E78.5 Hyperlipidemia, unspecified; G43.909 Migraine, unspecified, not intractable, without status migrainosus; R11.2 Nausea with vomiting, unspecified; R51.9 Headache, unspecified; K21.9 Gastro-esophageal reflux disease without esophagitis; F41.9 Anxiety disorder, unspecified; G25.0 Essential tremor; G47.00 Insomnia, unspecified; G25.81 Restless legs syndrome; K58.9 Irritable bowel syndrome, unspecified; Z95.5 Presence of coronary angioplasty implant and graft; Z79.82 Long term (current) use of aspirin; Z79.899 Other long term (current) drug therapy; Z88.0 Allergy status to penicillin; Z88.8 Allergy status to other drugs, medicaments and biological substances; Z91.040 Latex allergy status; Z91.09 Other allergy status, other than to drugs and biological substances; Z86.73 Personal history of transient ischemic attack (TIA), and cerebral infarction without residual deficits; Z90.721 Acquired absence of ovaries, unilateral; Z82.49 Family history of ischemic heart disease and other diseases of the circulatory system; Z82.3 Family history of stroke
CPT/HCPCS: 93005; 93306; 85025; 81001; 80048; 36415; 80061; 85347; 84484 ×4; 83880; 70450; 71275; 71045; 93458; 76937; 93571; 96375; 96374; 99285; Q9967; C1893; Q9966; J1644; J2785; J0360; J2001; J1650 ×2; J2250; J3010; J2405 ×4; G0378 ×6; J7040; C1769; 99152; 99153; J0461

== ENCOUNTER 2024-01-27 10:39 | Emergency (ER) | payer OTHER ==
[2024-01-27] MEDS ORDERED: KETOROLAC 30 MG/ML INJ ONE (13:01)
[2024-01-27 13:07] LABS: Absolute Basophils 0.1 K/uL (0-0.5); Absolute Eosinophils 0.2 K/uL (0-0.5); Absolute Lymphocytes (CBC) 1.9 K/uL (0.7-4.9); Absolute Monocytes 0.7 K/uL (0.1-1.3); Absolute Neutrophil 6.3 K/uL (1.8-8.0); Basophils % 0.8 % (0-1.3); Eosinophils % 1.7 % (0-4.4); Hematocrit 42.6 % (36.0-45.0); Hemoglobin 13.4 g/dL (12.0-15.0); Lymphocytes % 20.9 % (15.3-44.8); MCH 25.5 pg (27.0-35.0); MCHC 31.4 g/dL (32.0-36.0); MCV 81.4 fL (80-100); MPV 8.7 fL (7.6-11.3); Monocytes % 7.3 % (3.3-12.3); Neutrophils % 69.3 % (41.7-73.7); Platelets 203 thou/uL (152-406); RBC Red Blood Cell Count 5.24 M/uL (3.86-4.86); Red Cell Distribution Width 15.9 % (12.1-15.2)
[2024-01-27 13:12] LABS: Specific Gravity 1.014 (1.005-1.030); Sqamous Epithelial <5 /HPF (None Seen); Urine Bacteria <20 /HPF (<20); Urine Bilirubin NEGATIVE (Negative); Urine Blood Negative (Negative); Urine Clarity Turbid (Clear); Urine Color Light-Yellow (Yellow); Urine Culture Reflex Order NOT NEEDED; Urine Glucose 4+ (Over) (Negative); Urine Ketones NEGATIVE (Negative); Urine Microscopic Reflex YN ORDER UMIC; Urine Mucus Slight /HPF (None Seen); Urine Nitrite NEGATIVE (Negative); Urine Protein TRACE (Negative); Urine RBC <5 /HPF (None Seen); Urine Urobilinogen Normal (Normal); Urine WBC <5 /HPF (<5)
[2024-01-27] MEDS ORDERED: MORPHINE 4 MG/ML SYR ONE (13:52)
[2024-01-27] MEDS ORDERED: ONDANSETRON 4 MG/2 ML VIAL ONE (13:52)
--- NOTE | 2024-01-27 15:01 | RAD REPORT ---
EXAMINATION: CT ABDOMEN AND PELVIS WITH CONTRAST CLINICAL INDICATION: Abdominal pain TECHNIQUE: CT abdomen and pelvis was performed, after the administration of 100 cc Isovue-300.. Sagit kike and coronal reconstructions were obtained. One or more of the following dose reduction techniques were used: Automated exposure control, adjustment of the mA and kV according to patient si ze, and iterative reconstruction. Unless otherwise specified, incidental findings do not require dedicated imaging follow-up. [id number]. Oral contrast was given. 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 Mild prominence of the right texture renal pelvis. There is enhancement of the wall of the renal pelves bilaterally. Right ureterocele is present. 3 mm calculus is present within the right ureterocele. No evidence of diverticulitis. Normal appendix. No adnexal mass. Umbilical and ventral hernias containing fat. Largest to the right of midline within the pelvis. The herniated sac contains fat and measures 8 cm. : IMPRESSION: 3 mm calculus within a right ureterocele. There is mild prominence of a right extrarenal pelvis. It is uncertain if the calculus results in an intermittent partial obstruction. Enhancement of the wall of the renal pelves may indicate infection.
[2024-01-27 15:06] LABS: Albumin 3.5 g/dL (3.4-5.0); Albumin/Globulin Ratio 0.9 (1.1-1.8); Anion Gap 7.1 mEq/L (5.0-15.0); Bilirubin Total 0.5 mg/dL (0.2-1.0); Globulin 3.8 g/dL (2.3-3.5); Potassium 4.1 mEq/L (3.5-5.1); Protein, Total 7.3 g/dL (6.4-8.2)
--- NOTE | 2024-01-27 15:37 | EDPHYS ---
Physician Documentation [facility] Name: Niesha Lyon Age: 54 yrs Sex: Female : 1970 Arrival Date: 01/27/2024 Time: 10:39 Bed 14 Private MD: ED Physician Reinaldo Sheffield HPI: 01/26 15:24 This 54 yrs old Female presents to ER via Wheelchair with complaints of Feels Like bo1 Uterus fell out. 15:24 Pt feels something "full" in her abd and that her "uterus" feels like it is going to bo1 "fall out.". Onset: The symptoms/episode began/occurred gradually, 2 week(s) ago, and became persistent 2 days ago. Severity of symptoms: in the emergency department the symptoms are unchanged moderate symptoms. Pt has been referred by the PCP to a urologist for stone issues. 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 - Infectious Disease History:: Denies. - Social history:: Smoking status: Patient denies any tobacco usage or history of. ROS: 15:26 Constitutional: Negative for fever, chills, and weight loss, bo1 15:26 Abdomen/GI: Positive for Abdominal "fullness" - a sensation felt, 15:26 : Positive for difficulty urinating, Mild but not consistent, Negative for hematuria, foul smelling urine, Exam: 15:27 Constitutional: This is a well developed, well nourished patient who is awake, alert, bo1 and in mild acute distress - "discomfort." 15:27 Eyes: Exam is negative for icterus, 15:27 Cardiovascular: Rate: normal, Rhythm: regular, Pulses: no pulse deficits are appreciated, 15:27 Respiratory: the patient does not display signs of respiratory distress, Respirations: normal, Breath sounds: are clear throughout, 15:27 Abdomen/GI: Inspection: distension, obese No skin or surface lesions or discolorations, 15:27 : CVA tenderness, is absent, 15:27 Musculoskeletal/extremity: Extremities: all appear grossly normal, with no appreciated pain with palpation, 15:27 Skin: no rash present. Vital Signs: 10:49 BP 181 / 105; Pulse 57; Resp 18; Temp 97.1; Pulse Ox 98% on R/A; Weight 120.2 kg; ll1 Height 5 ft. 4 in. ; Pain 8/10; 13:47 BP 143 / 91; Pulse 48; Resp 16; Pulse Ox 95% ; cm10 16:05 BP 141 / 74; Pulse 47; Resp 16; Pulse Ox 92% ; cm10 10:49 Body Mass Index 45.49 (120.20 kg, 162.56 cm) ll1 10:49 Pain Scale: Adult ll1 MDM: 11:11 Medical Screening Exam initiated bo1 15:31 Differential Diagnosis Uterine laxity, UTI, Renal stone, sub-acute pyelonephritis; bo1 hernia; ureterocoele. Data reviewed: vital signs, lab test result(s), CBC, electrolytes, urinalysis, radiologic studies, CT scan. ED course: Pt has had a migraine attack but is more comfortable with meds given. Review of labs and imaging suggest a non-uterine issue but more urologic. In specific a sub-acute UTI with ureterocele and stone. Recommend F/U with PCP after 48 hours of abx and to see her urologist with copies of W/U results. Pt is comfortable with that. 01/26 11:39 Order name: CBC with Diff; Complete Time: 13:43 bo1 01/26 11:39 Order name: CMP; Complete Time: 15:20 bo1 01/26 11:39 Order name: Urinalysis w/ reflexes; Complete Time: 14:48 bo1 01/26 12:27 Order name: CT Abd/Pelvis - PO and IV Contrast; Complete Time: 15:03 bo1 01/26 11:39 Order name: IV Saline Lock; Complete Time: 12:57 bo1 01/26 11:39 Order name: Labs collected and sent; Complete Time: 12:57 bo1 Administered Medications: 13:07 Drug: Ketorolac IVP 30 mg IVP once Route: IVP; Site: left forearm; cm10 13:48 Follow up: Response: No adverse reaction cm10 14:06 Drug: morphine IVP or IV 4 mg IVP once over 4 mins Route: IVP; Infused Over: 4 mins; cm10 Site: left forearm; 15:13 Follow up: Response: No adverse reaction cm10 14:06 Drug: Ondansetron IVP 4 mg IVP once; over 2 minutes Route: IVP; Site: left forearm; cm10 15:13 Follow up: Response: No adverse reaction cm10 16:12 Drug: LevOfloxacin PO 500 mg PO once Route: PO; cm10 16:12 Follow up: Response: Medication administered at discharge. cm10 Disposition Summary: 01/27/24 15:37 Discharge Ordered Notes: Location: Home bo1 Problem: an acute exacerbation bo1 Symptoms: are unchanged bo1 Condition: Stable bo1 Diagnosis - Abdominal pain, unspecified bo1 - UTI/ Urinary tract infection, site not specified bo1 - Urinary calculus, unspecified bo1 Followup: bo1 - With: Private Physician - When: Upon discharge from the Emergency Department - Reason: Recheck today's complaints, Continuance of care Discharge Instructions: - Discharge Summary Sheet bo1 - Abdominal Pain, Adult bo1 - Kidney Stones, [id number] bo1 - Urinary Tract Infection, Adult, [id number] bo1 Forms: - Medication Reconciliation Form bo1 - Antibiotic Education bo1 - Prescription Opioid Use bo1 - Patient Portal Instructions bo1 - Leadership Thank You Letter bo1 Prescriptions: - Tramadol 50 mg Oral Tablet - take 1 tablet ORAL route every 8 hours as needed; 12 tablet; Refills: 0, bo1 Product Selection Permitted - levofloxacin 500 mg Oral tablet - take 1 tablet ORAL route once daily for 7 days; 7 tablet; Refills: 0, Product bo1 Selection Permitted Signatures: Dispatcher [employer] EDMS Rimma Nassar RN RN ll1 Isabel Crowley RN RN cm10 OeiReinaldo MD MD bo1 Corrections: (The following items were deleted from the chart) 11:40 11:39 CBC+H.LAB.BRZ ordered. EDMS EDMS 11:40 11:39 COMPREHENSIVE METABOLIC PANEL+C.LAB.BRZ ordered. EDMS EDMS 11:40 11:39 Urinalysis+U.LAB.BRZ ordered. EDMS EDMS 12:27 12:27 Abdomen Pelvis W Con+CT.RAD.BRZ ordered. EDMS EDMS
--- NOTE | 2024-01-27 15:37 | ER ---
Nurse's Notes [facility] Name: Niesha Lyon Age: 54 yrs Sex: Female : 1970 Arrival Date: 01/27/2024 Time: 10:39 Bed 14 Private MD: Diagnosis: Abdominal pain, unspecified;UTI/ Urinary tract infection, site not specified;Urinary calculus, unspecified Presentation: 01/26 10:49 Chief complaint: Patient states: Fells like her uterus is pushing out of her vaginal ll1 area since last night. No fever. Coronavirus screen: Client denies travel out of the [place] in the last 14 days. At this time, the client does not indicate any symptoms associated with coronavirus-19. Ebola Screen: Patient denies travel to an Ebola-affected area in the 21 days before illness onset. Initial Sepsis Screen: Does the patient meet any 2 criteria? No. Patient's initial sepsis screen is negative. Does the patient have a suspected source of infection? No. Patient's initial sepsis screen is negative. Risk Assessment: Do you want to hurt yourself or someone else? Patient reports no desire to harm self or others. Onset of symptoms was January 26, 2024. 10:49 Method Of Arrival: Wheelchair ll1 10:49 Acuity: CHRISTIAN 3 ll1 Triage Assessment: 10:56 General: Appears in no apparent distress. Behavior is calm, cooperative, appropriate ll1 for age. Pain: Complains of pain in pelvis Quality of pain is described as aching. GI: Reports lower abdominal pain. : Reports cramping, "feel like uterus is coming out vaginal area. 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 - Infectious Disease History:: Denies. - Social history:: Smoking status: Patient denies any tobacco usage or history of. Screenin:09 [facility] ED Fall Risk Assessment (Adult) History of falling in the last 3 months, cm10 including since admission No falls in past 3 months (0 pts) Confusion or Disorientation No (0 pts) Intoxicated or Sedated No (0 pts) Impaired Gait No (0 pts) Mobility Assist Device Used Yes (1 pt) Altered Elimination No (0 pt) Score/Fall Risk Level 0 - 2 = Low Risk Oriented to surroundings, Maintained a safe environment, Hourly rounding (assess needs \\T\\ fall precautionary measures) done. Abuse screen: Denies threats or abuse. Denies injuries from another. Nutritional screening: No deficits noted. Tuberculosis screening: No symptoms or risk factors identified. Assessment: 12:53 General: Pt completed oral contrast. CT aware.. cm10 12:55 General: Appears in no apparent distress. uncomfortable, Behavior is calm, cooperative. cm10 12:55 Pain: Complains of pain in pelvis. Neuro: No deficits noted. Level of Consciousness is cm10 awake, alert, obeys commands, Oriented to person, place, time, situation, Appropriate for age. Respiratory: No deficits noted. Airway is patent Respiratory effort is even, unlabored, Respiratory pattern is regular, symmetrical. : Reports pain "feels like my insides fell out". Derm: No deficits noted. Skin is healthy with good turgor. 14:10 Reassessment: Patient appears in no apparent distress at this time. No changes from cm10 previously documented assessment. Patient and/or family updated on plan of care and expected duration. Pain level reassessed. Patient is alert, oriented x 3, equal unlabored respirations, skin warm/dry/pink. Vital Signs: 10:49 BP 181 / 105; Pulse 57; Resp 18; Temp 97.1; Pulse Ox 98% on R/A; Weight 120.2 kg; ll1 Height 5 ft. 4 in. ; Pain 8/10; 13:47 BP 143 / 91; Pulse 48; Resp 16; Pulse Ox 95% ; cm10 16:05 BP 141 / 74; Pulse 47; Resp 16; Pulse Ox 92% ; cm10 10:49 Body Mass Index 45.49 (120.20 kg, 162.56 cm) ll1 10:49 Pain Scale: Adult ll1 ED Course: 10:43 Patient arrived in ED. mg5 10:51 Triage completed. ll1 10:51 Arm band placed on. ll1 11:11 Reinaldo Sheffield MD is Attending Physician. bo1 12:22 Patient placed in an exam room, on a stretcher. ll1 12:24 Isabel Crowley, RN is Primary Nurse. cm10 12:57 Patient has correct armband on for positive identification. Bed in low position. Call cm10 light in reach. Side rails up X2. Provided Education on: ER process and procedures.. Pulse ox on. NIBP on. 12:57 CBC with Diff Sent. cm10 12:57 CMP Sent. cm10 12:57 Initial lab(s) drawn, by me, sent to lab. Inserted saline lock: 20 gauge in left cm10 forearm, using aseptic technique. Blood collected. Flushed with 10 mL NS. 13:03 Urinalysis w/ reflexes Sent. ll1 14:[address] via wheelchair. cm10 14:45 CT Abd/Pelvis - PO and IV Contrast In Process Unspecified. EDMS 16:11 No provider procedures requiring assistance completed. IV discontinued, intact, cm10 bleeding controlled, No redness/swelling at site. Pressure dressing applied. Administered Medications: 13:07 Drug: Ketorolac IVP 30 mg IVP once Route: IVP; Site: left forearm; cm10 13:48 Follow up: Response: No adverse reaction cm10 14:06 Drug: morphine IVP or IV 4 mg IVP once over 4 mins Route: IVP; Infused Over: 4 mins; cm10 Site: left forearm; 15:13 Follow up: Response: No adverse reaction cm10 14:06 Drug: Ondansetron IVP 4 mg IVP once; over 2 minutes Route: IVP; Site: left forearm; cm10 15:13 Follow up: Response: No adverse reaction cm10 16:12 Drug: LevOfloxacin PO 500 mg PO once Route: PO; cm10 16:12 Follow up: Response: Medication administered at discharge. cm10 Medication: 13:09 VIS not applicable for this client. cm10 Outcome: 15:37 Discharge ordered by . bo1 16:11 Discharged to home via wheelchair, with family, cm10 16:11 Condition: good 16:11 Discharge instructions given to patient, Instructed on discharge instructions, follow up and referral plans. medication usage, Demonstrated understanding of instructions, follow-up care, medications, Prescriptions given X 2, 16:11 Patient left the ED. cm10 Signatures: Dispatcher [employer] EDMS Rimma Nassar RN RN ll1 Isabel Crowley RN RN cm10 Katherin Thomas mg5 Reinaldo Sheffield MD MD bo1 Corrections: (The following items were deleted from the chart) 10:51 10:49 Pulse 57bpm; Resp 18bpm; Pulse Ox 98% RA; Temp 97.1F; 120.2 kg; Height 5 ft. 4 ll1 in.; BMI: 45.4; Pain 11/15, Adult; ll1
[2024-01-27] MEDS ORDERED: levoFLOXacin 250 MG TAB ONE (16:02)
[2024-01-27 19:13] VITALS: TEMP 97.1
[2024-01-27 19:24] VITALS: BP 141/74; O2SAT 92
== END 2024-01-27 16:11 | disposition home or self-care (01) ==
LOC: ER 10:39
DX: N39.0 Urinary tract infection, site not specified (principal); N20.9 Urinary calculus, unspecified; Z95.818 Presence of other cardiac implants and grafts
CPT/HCPCS: 85025; 81001; 36415; 80053; 74177; 96375; 96374; 99285; Q9967; J2405

== ENCOUNTER 2024-02-11 08:40 | Day surgery (SDC) | payer OTHER ==
[2024-02-10 08:38] LABS: PT Prothrombin Time 12.6 SECONDS (9.4-12.5); PTT, Activated Partial Thromb 34.8 SECONDS (24.3-36.9); Protime INR 1.13
--- NOTE | 2024-02-10 12:20 | EKG ---
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
[2024-02-11] MEDS: NA CHLORIDE 0.9% 1,000 ML ONE (08:40)
[2024-02-11] MEDS ORDERED: MIDAZOLAM HCL 2 MG/2 ML INJ ONE (09:59)
[2024-02-11] MEDS ORDERED: FENTANYL CITR 100 MCG/2 ML ONE ×2 (09:59→11:32)
[2024-02-11] MEDS ORDERED: LIDOCAINE 1% MPF 5 ML VIAL ONE (09:59)
[2024-02-11] MEDS ORDERED: ONDANSETRON 4 MG/2 ML VIAL ONE (09:59)
[2024-02-11] MEDS ORDERED: propofoL 200 MG/20 ML VIAL IV ONE (09:59)
[2024-02-11] MEDS: CEFAZOLIN SODIUM 1 GM/VIAL ONE (10:23)
[2024-02-11] MEDS ORDERED: EPHEDRINE SULF 50 MG/ML VIAL ONE (10:50)
[2024-02-11] MEDS ORDERED: CEFAZOLIN SODIUM 1 GM/VIAL ONE (10:57)
--- NOTE | 2024-02-11 12:05 | RAD REPORT ---
EXAMUrethrocystogrphy Retrograde CLINICAL HISTORY: Right ureteral stent placement FINDINGS: Fluoroscopy time 0.1 minute. 4 fluoroscopic spot images obtained. Procedure performed by Dr. Young. Right ureter cannulated and contrast administered. Subsequently a right ureteral stent placed.
--- NOTE | 2024-02-11 12:34 | P.OP ---
Date of Service: 02/11/24 Preoperative diagnoses: Right flank and lower quadrant pain Right hydronephrosis Right ureterocele Right ureterolithiasis Postoperative diagnoses: Right flank and lower quadrant pain Right hydronephrosis Right congenital, orthotopic, obstructive ureterocele Right ureterolithiasis Right pelvic kidney Principal procedures: Cystoscopy Laser incision and resection of right sided ureterocele Ureteroscopic stone extraction Right retrograde pyelography Right 8 Stateless by 24 cm double-J ureteral stent placement Indication for procedure: The patient presented to the urology clinic with hematuria initially. She underwent evaluation revealing the presence of a stone, which was per the radiologist report located "within the wall of the bladder". However, when I reviewed the images directly, I suspected the presence of a ureterocele, and prior to the patient following up with me to discuss that result, she ended up in the emergency department with severe right flank to right lower quadrant pain. As a result, she presents today for definitive management of her obstructive right congenital ureterocele with ureterolithiasis. Procedure note: The patient was consented in the preoperative holding area before being transferred to the operative suite where general anesthesia was induced. She was given Ancef 2 g IV antimicrobial prophylaxis, and pneumoboots were provided for DVT prophylaxis. She was placed in the lithotomy position, padded and secured to the table appropriately, and her genitalia was prepped with Hibiclens before being draped in standard fashion. The case was begun using a 22 Stateless rigid cystoscope to traverse the urethra and into the bladder with ease. The bladder was surveyed in its entirety, and no papillary mucosal lesions, foreign bodies, or stones were noted throughout, but there was a bulbous presents of the right ureteral orifice with a pinpoint opening consistent with a congenital orthotopic right sided ureterocele. I attempted to cannulate this using the tip of a sensor wire without success. As a result, incision of the ureterocele was required. Using a 365 nm laser fiber and the holmium laser, I initially started by incising the ventral aspect of the bulbous aspect of the ureterocele. The tissue was markedly thickened; so despite incising the tissue, I was unable to gain access into the true ureteral lumen at the orifice. As a result, I switched to a resectoscope and using the monopolar loop I resected the orifice revealing the lumen of the ureter. Within that lumen, the 3 mm ureteral calculus was present. I was thus able to utilize the cystoscope and biopsy forceps to reach into the lumen of the distal ureter and grasp the stone delivering it intact. This was sent for pathologic analysis for chemical analysis. I then placed a 5 Stateless ureteral access catheter into the distal ureter and performed a retrograde pyelogram. Right retrograde pyelography: Using a 70: 30 mixture of Omnipaque and saline, contrast was injected via the lumen of the 5 Stateless ureteral access catheter and did propagate up the distal into the mid and proximal ureter before entering the renal pelvis and calyces. Of note, the kidney was displaced into the lower aspect of the abdomen, nearly a pelvic kidney. Leaving the 5 Stateless ureteral access catheter in place, I switched back to the 365 nm laser fiber and continued incising the ventral aspect of the shelving edge of the ureteral orifice until it was widely patent. I then passed a sensor wire via the lumen of the 5 Stateless ureteral access catheter coiling it in the upper pole of the kidney. Leaving the wire in place and removing the 5 Stateless ureteral access catheter, placed an 8 Stateless by 24 cm double-J ureteral stent over the wire coiling it within the upper pole of the kidney with a coil formed cystoscopically within her bladder. I then decompressed her bladder of fluid and urine, and took the patient out of the lithotomy position. She was awakened from general anesthesia before being transferred to a stretcher. She was then transferred to the recovery room in good condition. Complications: None Discharge disposition: I would like for her to keep the stent for at least the next 2 to 4 weeks minimum, up to 6 weeks maximum before we would plan cystoscopy and right ureteral stent extraction in the office. Subsequent follow-up will be established 2 to 3 months later with an ultrasound of the right kidney to assess for any recurrence of hydronephrosis suggestive of potential obstruction due to stricturing of the incised right congenital orthotopic ureterocele.
[2024-02-11] MEDS ORDERED: HYDROCODONE/APAP 7.5/325 MG TAB ONE (13:09)
[2024-02-11] MEDS: HYDROCODONE/APAP 7.5/325 MG TAB PO ONE (13:12)
[2024-02-11 14:02] VITALS: BP 158/83; TEMP 97.2; O2SAT 97
== END 2024-02-11 13:40 | disposition home or self-care (01) ==
LOC: OR 08:40
PROVIDERS: ATTEND Urology
PROC: 0T768DZ Dilation of Right Ureter with Intraluminal Device, Via Natural or Artificial Opening Endoscopic (ICD-10-PCS; 2024-02-11)
PROC: 0TB68ZZ Excision of Right Ureter, Via Natural or Artificial Opening Endoscopic (ICD-10-PCS; 2024-02-11)
PROC: 0TC68ZZ Extirpation of Matter from Right Ureter, Via Natural or Artificial Opening Endoscopic (ICD-10-PCS; principal; 2024-02-11 10:30)
DX: N13.2 Hydronephrosis with renal and ureteral calculous obstruction (principal); Q62.31 Congenital ureterocele, orthotopic; R10.31 Right lower quadrant pain
CPT/HCPCS: 52352; 52332; 52300; 93005; 87088; 87086; 36415; 85610; 82947; 88300; 85730; 82360; 74450; 51610; J2704; J2003; J2250; J3010 ×2; J2405; J7030; J0690 ×2

== ENCOUNTER 2024-06-30 21:19 | Emergency (ER) | payer OTHER ==
[2024-06-30 22:08] LABS: Absolute Basophils 0.1 K/uL (0-0.5); Absolute Eosinophils 0.2 K/uL (0-0.5); Absolute Lymphocytes (CBC) 2.3 K/uL (0.7-4.9); Absolute Monocytes 0.6 K/uL (0.1-1.3); Absolute Neutrophil 6.7 K/uL (1.8-8.0); Basophils % 0.9 % (0-1.3); Eosinophils % 2.2 % (0-4.4); Hematocrit 41.5 % (36.0-45.0); Hemoglobin 13.5 g/dL (12.0-15.0); Lymphocytes % 23.4 % (15.3-44.8); MCHC 32.5 g/dL (32.0-36.0); MPV 8.3 fL (7.6-11.3); Monocytes % 5.8 % (3.3-12.3); Neutrophils % 67.7 % (41.7-73.7); Nucleated RBC Absolute Count 0.1 (0-0); Nucleated Red Blood Cells % 0.7 % (0-0); Platelets 194 thou/uL (152-406); RBC Red Blood Cell Count 4.99 M/uL (3.86-4.86); Red Cell Distribution Width 14.7 % (12.1-15.2)
[2024-06-30 22:15] LABS: PT Prothrombin Time 10.7 SECONDS (10-13.0); Protime INR 0.94
[2024-06-30 22:27] LABS: ALT/SGPT 26 U/L (13-56); AST/SGOT 24 U/L (15-37); Albumin 3.2 g/dL (3.4-5.0); Albumin/Globulin Ratio 0.8 (1.1-1.8); Alkaline Phosphatase 87 U/L (45-117); Anion Gap 7.9 mEq/L (5.0-15.0); BUN Blood Urea Nitrogen 16 mg/dL (7-18); Bicarbonate 28 mEq/L (21-32); Bilirubin Total 0.4 mg/dL (0.2-1.0); Globulin 3.8 g/dL (2.3-3.5); Glomerular Filtration Rate 44 ml/min (=/>90); Glucose Level 110 mg/dL (74-106); Magnesium 2.2 mg/dL (1.6-2.4); NT PRO-BNP 373 pg/mL (<125); Potassium 3.9 mEq/L (3.5-5.1); Sodium Level 139 mEq/L (136-145); Troponin High Sensitivity 11.6 pg/mL (<58.9)
[2024-06-30 22:28] LABS: Bilirubin Direct < 0.2 mg/dL (0-0.2); Bilirubin Indirect, Calculated 0.2 mg/dL (0.2-0.8)
[2024-06-30] MEDS ORDERED: ONDANSETRON 4 MG/2 ML VIAL ONE (23:11)
[2024-06-30] MEDS ORDERED: KETOROLAC 30 MG/ML INJ ONE (23:11)
[2024-06-30] MEDS ORDERED: METOCLOPRAMIDE 10 MG/2mL INJ ONE (23:11)
[2024-06-30] MEDS ORDERED: MORPHINE 4 MG/ML SYR ONE (23:12)
[2024-06-30] MEDS ORDERED: NA CHLORIDE 0.9% 1,000 ML ONE (23:12)
[2024-06-30] MEDS ORDERED: DIPHENOX/ATROP SULF 1 TAB PO ONE (23:12)
--- NOTE | 2024-06-30 23:21 | RAD REPORT ---
EXAMINATION: ONE VIEW CHEST XR CLINICAL INDICATION: Female, 54 years old.,CHEST PAIN TECHNIQUE: Frontal chest projection is submitted. Examination is limited by patient positioning and t echnique. COMPARISON: 05/12/2023 FINDINGS: The lungs are well inflated and clear. No pneumothorax or sizable effusion. The heart is normal in s ize. Mediastinal contours are unremarkable. IMPRESSION: No acute intrathoracic abnormalities.
[2024-07-01 00:17] LABS: Influenza A Ag Negative; Influenza B Ag Negative; SARS-CoV-2 Antigen Rapid Res Negative (Negative)
--- NOTE | 2024-07-01 02:34 | EDPHYS ---
Physician Documentation [facility] Name: Niesha Lyon Age: 54 yrs Sex: Female : 1970 Arrival Date: 06/30/2024 Time: 21:19 Bed 19 Private MD: ED Physician Lenard Coley HPI: 07/01 02:32 This 54 yrs old Female presents to ER via Wheelchair with complaints of sp4 Anxiety, Chest Pain, Back Pain, Nausea. 20:19 Patient presents with nausea vomiting and diarrhea, body aches, chest pain, anxiety, sp4 back pain, and overall feeling unwell. States that most of her family have symptoms of gastroenteritis including nausea vomiting and diarrhea.. 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 - Infectious Disease History:: Denies. - Social history:: Smoking status: Patient/guardian denies using tobacco, but has a distant history of tobacco abuse. - Family history:: not pertinent. ROS: 07/01 20:19 Constitutional: Positive fever, positive body aches, positive nausea, positive sp4 vomiting, positive diarrhea, positive back pain, positive anxiety, positive chest pain All other systems are negative, Exam: 20:19 Constitutional: This is a well developed, well nourished patient who is awake, alert, sp4 and in no acute distress. Head/Face: Normocephalic, atraumatic. Eyes: Pupils equal round and reactive to light, extra-ocular motions intact. Lids and lashes normal. Conjunctiva and sclera are not injected. Cornea within normal limits. Periorbital areas with no swelling, redness, or edema. ENT: Nares patent. No nasal discharge, no septal abnormalities noted. Tympanic membranes are normal and external auditory canals are clear. Oropharynx with no redness, swelling, or masses, exudates, or evidence of obstruction, uvula midline. Mucous membranes moist. Neck: Trachea midline, no thyromegaly or masses palpated, and no cervical lymphadenopathy. Supple, full range of motion without nuchal rigidity, or vertebral point tenderness. Chest/axilla: Normal chest wall appearance and motion. Nontender with no deformity. No lesions are appreciated. Cardiovascular: Regular rate and rhythm with a normal S1 and S2. No gallops, murmurs, or rubs. Normal PMI, no JVD. No pulse deficits. Respiratory: Lungs have equal breath sounds bilaterally, clear to auscultation and percussion. No rales, rhonchi or wheezes noted. No increased work of breathing, no retractions or nasal flaring. Abdomen/GI: Soft, with normal bowel sounds. No distension or tympany. No guarding or rebound. No evidence of tenderness throughout. Back: No spinal tenderness. No costovertebral tenderness. Skin: Warm, dry with normal turgor. Normal color with no rashes, no lesions, and no evidence of cellulitis. MS/ Extremity: Pulses equal, no cyanosis. Neurovascular intact. Full, normal range of motion. Neuro: Awake and alert, GCS 15, oriented to person, place, time, and situation. Cranial nerves II-XII grossly intact. Motor strength 5/5 in all extremities. Sensory grossly intact. Psych: Awake, alert, with orientation to person, place and time. Behavior, mood, and affect are within normal limits 20:19 ECG was reviewed by the Attending Physician. EKG 2144 sinus bradycardia rate 54 otherwise normal Vital Signs: 06/30 21:26 BP 224 / 100; Pulse 61; Resp 19; Temp 98.2; Pulse Ox 95% ; Weight 122.47 kg; Height 5 me1 ft. 4 in. ; Pain 8/10; 22:12 BP 145 / 87; Pulse 53; Resp 17; Temp 98.2; Pulse Ox 97% on R/A; MAP 100 mmHg; aa10 07/01 02:21 BP 140 / 72; Pulse 47; Resp 12; Temp 98; Pulse Ox 95% on R/A; MAP 88 mmHg; aa10 06/30 21:26 Body Mass Index 46.34 (122.47 kg, 162.56 cm) hi1 06/30 21:26 Pain Scale: Adult me1 Lorraine Coma Score: 20:19 Eye Response: spontaneous(4). Motor Response: obeys commands(6). Verbal Response: sp4 oriented(5). Total: 15. MDM: 06/30 21:44 Differential diagnosis: acute pericarditis, anxiety, chest wall pain, esophagitis, sp4 gastritis. HEART Score: History: Slightly Suspicious (0), ECG: Normal (0), Age: > 45 and < 65 years (1), Risk Factors: > or = 3 Risk factors for atherosclerotic disease (2), Troponin: < or = 1 x Normal Limit (0), Total Score = 3. Data reviewed: vital signs, nurses notes, old medical records, lab test result(s), EKG, radiologic studies, plain films. 22:26 Medical Screening Exam initiated [facility] 07/01 20:23 ED course: Improved after medications, stable for discharge home.. [facility] 06/30 21:34 Order name: Basic Metabolic Panel; Complete Time: 22:33 [facility] 06/30 21:34 Order name: CBC with Diff; Complete Time: 22:33 [facility] 06/30 21:34 Order name: LFT's; Complete Time: 22:33 [facility] 06/30 21:34 Order name: Magnesium; Complete Time: 22:33 [facility] 06/30 21:34 Order name: NT PRO-BNP; Complete Time: 22:33 [facility] 06/30 21:34 Order name: PT-INR; Complete Time: 22:33 [facility] 06/30 21:34 Order name: Troponin HS; Complete Time: 22:33 [facility] 06/30 22:33 Order name: COVID-19 Ag + Flu A+B Ag; Complete Time: 01:51 [facility] 06/30 21:34 Order name: XRAY Chest (1 view); Complete Time: 01:51 [facility] 06/30 21:34 Order name: Cardiac monitoring; Complete Time: 21:55 [facility] 06/30 21:34 Order name: EKG - Nurse/Tech; Complete Time: 21:49 [facility] 06/30 21:34 Order name: IV Saline Lock; Complete Time: 22:03 sp4 06/30 21:34 Order name: Labs collected and sent; Complete Time: 22: sp4 06/30 21:34 Order name: O2 Per Protocol; Complete Time: 22: sp4 06/30 21:34 Order name: O2 Sat Monitoring; Complete Time: 22: sp4 EC/25 21:44 Rate is 54 beats/min. Rhythm is regular, Sinus bradycardia. QRS [place] is Normal. OR sp4 interval is normal. QRS interval is normal. QT interval is normal. No Q waves. T waves are Normal. No ST changes noted. Clinical impression: No evidence of ischemia. Interpreted by me. Reviewed by me. Administered Medications: 23:33 Drug: morphine IVP or IV 4 mg IVP once over 4 mins Route: IVP; Infused Over: 4 mins; aa10 Site: left hand; 07/01 02:23 Follow up: Response: No adverse reaction; Marked relief of symptoms aa06/30 23:33 Drug: Ondansetron IVP 4 mg IVP once; over 2 minutes Route: IVP; Site: left hand; aa10 07/01 02:23 Follow up: Response: No adverse reaction; Marked relief of symptoms aa06/30 23:33 Drug: Diphenoxylate-Atropine PO 2 tabs PO once Route: PO; aa07/01 02:23 Follow up: Response: No adverse reaction; Marked relief of symptoms 06/30 23:33 Drug: NS 0.9% IV 1000 ml IV at 1 bolus Per protocol; to be given as a bolus over 60 aa10 minutes Route: IV; Rate: 1 bolus; Site: left hand; 07/01 02:22 Follow up: IV Status: Completed infusion; IV Intake: 1000ml aa 02:22 Follow up: Response: No adverse reaction; Marked relief of symptoms aa06/30 23:33 Drug: metoCLOPramide IVP 10 mg IVP once; over 1 to 2 minutes Route: IVP; Site: left [address] [place] [address]; 07/01 02:22 Follow up: Response: No adverse reaction; Marked relief of symptoms aa06/30 23:33 Drug: Ketorolac IVP 15 mg IVP once Route: IVP; Site: left hand; aa10 07/01 02:22 Follow up: Response: No adverse reaction; Marked relief of symptoms aa10 Disposition: 20:23 Chart complete. sp4 Disposition Summary: 07/01/24 02:34 Discharge Ordered Notes: Location: Home sp4 Problem: new sp4 Symptoms: have improved sp4 Condition: Stable sp4 Diagnosis - Acute gastroenteritis, acute nausea vomiting and diarrhea, Acute body aches sp4 Followup: sp4 - With: Private Physician - When: 7 - 10 days - Reason: Recheck today's complaints Discharge Instructions: - Discharge Summary Sheet sp4 - Viral Gastroenteritis, Adult, [id number] sp4 Forms: - Patient Portal Instructions sp4 Prescriptions: - naproxen 500 mg Oral tablet - take 1 tablet ORAL route every 12 hours PRN pain or fever; 50 tablet; Refills: sp4 0, Product Selection Permitted - Lomotil 2.5-0.025 mg Oral tablet - take 1 tablet ORAL route every 6 hours As needed PRN diarrhea; 30 tablet; sp4 Refills: 0, Product Selection Permitted - ondansetron 8 mg Oral Tablet,disintegrating - take 1 tablet ORAL route every 8 hours PRN nausea; 30 tablet; Refills: 0, sp4 Product Selection Permitted Signatures: Dispatcher [employer] EDMS Lenard Coley MD MD sp4 Neema De Guzman RN RN me1 Hank Agudelo RN RN aa10 Corrections: (The following items were deleted from the chart) 06/30 21:35 21:34 BASIC METABOLIC PANEL+C.LAB.BRZ ordered. EDMS EDMS 21:35 21:34 CBC+H.LAB.BRZ ordered. EDMS EDMS 21:35 21:34 HEPATIC FUNCTION+C.LAB.BRZ ordered. EDMS EDMS 21:35 21:34 MAGNESIUM+C.LAB.BRZ ordered. EDMS EDMS 21:35 21:34 PROBNP+C.LAB.BRZ ordered. EDMS EDMS 21:35 21:34 PROTIME (+INR)+COAG.LAB.BRZ ordered. EDMS EDMS 21:35 21:34 Troponin High Sensitivity+C.LAB.BRZ ordered. EDMS EDMS 21:35 21:35 Chest Single View+RAD.RAD.BRZ ordered. EDMS EDMS
--- NOTE | 2024-07-01 02:34 | ER ---
Nurse's Notes [facility] Name: Niesha Lyon Age: 54 yrs Sex: Female : 1970 Arrival Date: 06/30/2024 Time: 21:19 Bed 19 [facility] MD: Diagnosis: Acute gastroenteritis, acute nausea vomiting and diarrhea, Acute body aches Presentation: 06/30 21:26 Chief complaint: Patient states: cp that radiates to upper back and left axilla. 11/15 me1 "pressure" accompanied by nausea, sob, dizziness, anxiety starting this morning. Coronavirus screen: Vaccine status: Patient reports receiving the 2nd dose of the covid vaccine. Ebola Screen: No symptoms or risks identified at this time. Initial Sepsis Screen: Does the patient meet any 2 criteria? No. Patient's initial sepsis screen is negative. Does the patient have a suspected source of infection? No. Patient's initial sepsis screen is negative. Risk Assessment: Do you want to hurt yourself or someone else? Patient reports no desire to harm self or others. Onset of symptoms was June 30, 2024 at 08:00. 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 - Infectious Disease History:: Denies. - Social history:: Smoking status: Patient/guardian denies using tobacco, but has a distant history of tobacco abuse. - Family history:: not pertinent. Screenin:14 [facility] ED Fall Risk Assessment (Adult) History of falling in the last 3 months, aa10 including since admission No falls in past 3 months (0 pts) Confusion or Disorientation No (0 pts) Intoxicated or Sedated No (0 pts) Impaired Gait No (0 pts) Mobility Assist Device Used No (0 pt) Altered Elimination No (0 pt) Score/Fall Risk Level 0 - 2 = Low Risk Oriented to surroundings, Maintained a safe environment, Educated pt \\T\\ family on fall prevention, incl call for assistance when getting out of bed, Assessed \\T\\ reinforced patient's understanding of fall precautions, Provided non-skid footwear, Hourly rounding (assess needs \\T\\ fall precautionary measures) done. Abuse screen: Denies threats or abuse. Denies injuries from another. Nutritional screening: No deficits noted. Tuberculosis screening: No symptoms or risk factors identified. Assessment: 22:17 Also complains of shortness of breath. General: Appears in no apparent distress. aa10 comfortable, well groomed, well developed, Behavior is calm, cooperative, appropriate for age, quiet. Pain: Complains of pain in back and chest Pain does not radiate. Pain currently is 5 out of 10 on a pain scale. Quality of pain is described as aching, Pain began gradually, Is continuous, Alleviated by medications, rest, Aggravated by exercise, increased activity, Noted to be quiet/stoic. Neuro: No deficits noted. Level of Consciousness is awake, alert, obeys commands, Oriented to person, place, time, situation, Appropriate for age Cytology Teacher are equal bilaterally Moves all extremities. Gait is steady, Speech is normal, Facial symmetry appears normal, Pupils are PERRLA, Intact. Cardiovascular: No deficits noted. Capillary refill < 3 seconds Clubbing of nail beds is absent JVD is absent Patient's skin is warm and dry. Rhythm is regular Chest pain is described as mild. Respiratory: No deficits noted. Airway is patent. 07/01 02:20 Reassessment: Patient appears in no apparent distress at this time. No changes from aa10 previously documented assessment. Patient and/or family updated on plan of care and expected duration. Pain level reassessed. Patient is alert, oriented x 3, equal unlabored respirations, skin warm/dry/pink. Patient denies pain at this time. Patient states feeling better. Patient states symptoms have improved. Vital Signs: 06/30 21:26 BP 224 / 100; Pulse 61; Resp 19; Temp 98.2; Pulse Ox 95% ; Weight 122.47 kg; Height 5 me1 ft. 4 in. ; Pain 8/10; 22:12 BP 145 / 87; Pulse 53; Resp 17; Temp 98.2; Pulse Ox 97% on R/A; MAP 100 mmHg; aa10 07/01 02:21 BP 140 / 72; Pulse 47; Resp 12; Temp 98; Pulse Ox 95% on R/A; MAP 88 mmHg; aa10 06/30 21:26 Body Mass Index 46.34 (122.47 kg, 162.56 cm) me1 06/30 21:26 Pain Scale: Adult me1 Lorraine Coma Score: 20:19 Eye Response: spontaneous(4). Motor Response: obeys commands(6). Verbal Response: sp4 oriented(5). Total: 15. ED Course: 06/30 21:20 Patient arrived in ED. gm2 21:26 Arm band placed on Patient placed in waiting room. me1 21:28 Triage completed. me1 21:32 Lenard Coley MD is Attending Physician. sp4 22:03 Basic Metabolic Panel Sent. aa10 22:03 CBC with Diff Sent. aa10 22:03 LFT's Sent. aa10 22:03 Magnesium Sent. aa10 22:03 NT PRO-BNP Sent. aa10 22:03 PT-INR Sent. aa10 22:03 Troponin HS Sent. aa10 22:13 Inserted saline lock: 20 gauge hand, using aseptic technique. aa10 22:20 Patient has correct armband on for positive identification. Allergy band placed. Fall aa10 risk band placed. Placed in gown. Bed in low position. Call light in reach. Side rails up X2. Provided Education on: about plan of care. Client placed on continuous cardiac and pulse oximetry monitoring. NIBP monitoring applied. monitoring tech on. Pulse ox on. NIBP on. 22:21 Patient maintains SpO2 saturation greater than 95% on room air. aa10 22:21 No provider procedures requiring assistance completed. aa10 22:22 XRAY Chest (1 view) In Process Unspecified. EDMS 23:33 COVID-19 Ag + Flu A+B Ag Sent. aa10 07/01 02:42 IV discontinued. aa10 Administered Medications: 06/30 23:33 Drug: morphine IVP or IV 4 mg IVP once over 4 mins Route: IVP; Infused Over: 4 mins; aa10 Site: left hand; 07/01 02:23 Follow up: Response: No adverse reaction; Marked relief of symptoms aa06/30 23:33 Drug: Ondansetron IVP 4 mg IVP once; over 2 minutes Route: IVP; Site: left hand; aa10 07/01 02:23 Follow up: Response: No adverse reaction; Marked relief of symptoms aa06/30 23:33 Drug: Diphenoxylate-Atropine PO 2 tabs PO once Route: PO; aa10 07/01 02:23 Follow up: Response: No adverse reaction; Marked relief of symptoms aa06/30 23:33 Drug: NS 0.9% IV 1000 ml IV at 1 bolus Per protocol; to be given as a bolus over 60 aa10 minutes Route: IV; Rate: 1 bolus; Site: left hand; 07/01 02:22 Follow up: IV Status: Completed infusion; IV Intake: 1000ml aa 02:22 Follow up: Response: No adverse reaction; Marked relief of symptoms 06/30 23:33 Drug: metoCLOPramide IVP 10 mg IVP once; over 1 to 2 minutes Route: IVP; Site: left aa10 hand; 07/01 02:22 Follow up: Response: No adverse reaction; Marked relief of symptoms 06/30 23:33 Drug: Ketorolac IVP 15 mg IVP once Route: IVP; Site: left hand; aa10 07/01 02:22 Follow up: Response: No adverse reaction; Marked relief of symptoms aa10 Medication: 06/30 22:20 VIS not applicable for this client. aa10 Intake: 07/01 02:22 IV: 1000ml; Total: 1000ml. aa10 Outcome: 02:34 Discharge ordered by . sp4 02:42 Discharged to home ambulatory, aa10 02:42 Condition: good 02:42 Discharge instructions given to patient, Instructed on discharge instructions, Demonstrated understanding of instructions, 02:59 Prescriptions given X 3, aa10 02:59 Patient left the ED. aa10 Signatures: Dispatcher [employer] Lenard Garcia MD MD sp4 Neema De Guzman RN RN oh1 Folr Ambriz 2 Hank Agudelo RN RN aa10 Corrections: (The following items were deleted from the chart) 06/30 21:30 21:26 Pulse 61bpm; Resp 19bpm; Pulse Ox 95%; Temp 98.2F; 122.47 kg; Height 5 ft. 4 in.; me1 BMI: 46.3; Pain 8/10, Adult; me1 21:32 21:26 BP 230 / 114; Pulse 61bpm; Resp 19bpm; Pulse Ox 95%; Temp 98.2F; 122.47 kg; me1 Height 5 ft. 4 in.; BMI: 46.3; Pain 8/10, Adult; me1
[2024-07-01 03:25] VITALS: BP 140/72; TEMP 98; O2SAT 95
--- NOTE | 2024-07-02 08:39 | EKG ---
Test Date: 2024-06-30 Test Time: 21:44:46 Terminal Block Assembler: IVANA MEASUREMENT RESULTS: Intervals: Rate: 54 [place]: 192 QRSD: 86 QT: 434 QTc: 411 [place]: P: 62 [place]: 192 QRS: 40 T: 41 INTERPRETIVE STATEMENTS: Sinus bradycardia Septal infarct, age undetermined Abnormal ECG Compared to ECG 02/07/2024 12:57:29 No significant changes Electronically Signed On 07-02-24 08:36:24 CDT by Stuart Sierra
--- NOTE | 2024-07-02 08:39 | EKG ---
Test Date: 2024-06-30 Test Time: 23:55:22 Jewelry Model Maker: IVANA MEASUREMENT RESULTS: Intervals: Rate: 93 [place]: 184 QRSD: 94 QT: 364 QTc: 452 [place]: P: 65 [place]: 184 QRS: 31 T: 64 INTERPRETIVE STATEMENTS: Normal sinus rhythm Normal ECG Compared to ECG 06/30/2024 21:44:46 Sinus bradycardia no longer present Myocardial infarct finding no longer present Electronically Signed On 07-02-24 08:36:21 CDT by Stuart Sierra
--- NOTE | 2024-07-02 08:39 | EKG ---
Test Date: 2024-07-01 Test Time: 00:49:54 Research Manufacturing Operator: IVANA MEASUREMENT RESULTS: Intervals: Rate: 87 [place]: 168 QRSD: 74 QT: 392 QTc: 471 [place]: P: 57 [place]: 168 QRS: 49 T: 55 INTERPRETIVE STATEMENTS: Normal sinus rhythm Low voltage QRS Borderline ECG Compared to ECG 06/30/2024 21:44:46 Low QRS voltage now present Sinus bradycardia no longer present Myocardial infarct finding no longer present Electronically Signed On 07-02-24 08:36:13 CDT by Stuart Sierra
== END 2024-07-01 02:59 | disposition home or self-care (01) ==
LOC: ER 21:19
DX: K52.9 Noninfective gastroenteritis and colitis, unspecified (principal); R52 Pain, unspecified; I10 Essential (primary) hypertension; Z95.818 Presence of other cardiac implants and grafts; Z11.52 Encounter for screening for COVID-19
CPT/HCPCS: 93005 ×3; 85025; 80048; 36415; 83735; 85610; 80076; 84484; 83880; 71045; 87428; J2765; J2405; J7030